=== PATIENT | male | born 1960 | race African-American/Black ===

== ENCOUNTER 2016-05-14 08:17 | Day surgery (SDC) | payer OTHER ==
[2016-05-14 08:57] VITALS: BMI 23.2
[2016-05-14] MEDS ORDERED: LIDOCAINE HCL/PF 1% SDV 5ML VIAL ONE (08:57)
[2016-05-14] MEDS ORDERED: PROPOFOL 20 ML ONE ×3 (08:57→10:24)
[2016-05-14 10:41] VITALS: TEMP 99
[2016-05-14 11:46] VITALS: BP 131/95; PULSE 70
--- NOTE | 2016-05-15 12:10 | PATH ---
Surgical Pathology Report Patient Name: KIRSTIN BURTON [facility]. Rec. #: [id number] /Age/Gender: 1960 (Age: 55) / M Account: [id number] Location: [facility]-ENDOSCOPY Taken: 05/14/2016 Received: 05/14/2016 Reported: 05/15/2016 Physicians: Neville Nguyễn M.D. Specimen(s) Received A: BX EROSION MID ANTRUM B: BX BODY OF STOMACH Clinical History Rule out ampullary mass by MRI Erosion antrum, nodular stomach, hiatal hernia, redundant ampullary mucosa Final Diagnosis A. STOMACH, MID ANTRUM, EROSION, BIOPSY: GASTRIC ANTRAL MUCOSA WITH MODERATE CHRONIC GASTRITIS AND REACTIVE GASTROPATHY WITH FOCAL SURFACE EROSION. IMMUNOSTAIN FOR H. PYLORI IS NEGATIVE FOR ORGANISMS. B. STOMACH, BODY BIOPSY: GASTRIC OXYNTIC MUCOSA WITH MODERATE CHRONIC GASTRITIS IMMUNOSTAIN FOR H. PYLORI IS NEGATIVE FOR ORGANISMS. Electronically Signed Dave Walker M.D. Gross Description A. Received in formalin, labeled "biopsy erosion mid antrum" is a ludwig, irregular portion of soft tissue measuring 0.4 cm in greatest dimension. The specimen is submitted in toto in one cassette. B. Received in formalin, labeled "biopsy body of stomach" are 2 ludwig, irregular portions of soft tissue measuring 0.2 and 0.7 cm in greatest dimension. The specimens are submitted in toto in one cassette. 05/14/2016 saudi05/14/2016
== END 2016-05-14 11:45 | disposition home or self-care (01) ==
LOC: JASU-ENDO 08:17
PROVIDERS: ATTEND Internal Medicine Gastroenterology
PROC: 0DB68ZX Excision of Stomach, Via Natural or Artificial Opening Endoscopic, Diagnostic (ICD-10-PCS; principal; 2016-05-14 09:30)
DX: K25.9 Gastric ulcer, unspecified as acute or chronic, without hemorrhage or perforation (principal); K31.89 Other diseases of stomach and duodenum
CPT/HCPCS: 88305-TC; 88342-TC

== ENCOUNTER 2016-08-27 02:51 | Observation (INO) | payer OTHER ==
[2016-08-27] MEDS ORDERED: SODIUM CHLORIDE 0.9% 500 ML INFUS.BAG IV ONE (02:58)
--- NOTE | 2016-08-27 02:59 | PDOC ---
History of Present Illness - General History Source: Patient Exam Limitations: No Limitations - History of Present Illness Initial Comments: 08/27/16 03:35 Patient is a 55 year old male with a significant past medical history of hypertension, asthma, chronic back pain and ?heart disease who presents to the ED via EMS with complaint of chest pain since 2 AM. Patient states that sharp chest pain, nonradiating, woke him up from his sleep. As per EMS, the patient was given 340 mg baby aspirin and nitro and his last BP was 134/75. Patient notes that he experienced similar pain before. Patient reports associated SOB with chest pain that is intermittent. Patient reports chest pain upon taking of a deep breath. He denies any fall, trauma or LOC. He denies any recent travel or long trip. 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 Allergies: NKA <Jessica Major - Last Filed: 08/27/16 05:39> <Abdullahi Mae - Last Filed: 08/27/16 06:06> - General Stated Complaint: CHEST PAIN Past History <Jessica Major - Last Filed: 08/27/16 05:39> - Past Medical History Asthma: Yes GI Disorders: Yes (ULCERS;H.PYLORY;H/H) HTN: Yes - Psycho/Social/Smoking Cessation Hx Suicidal Ideation: No Smoking Status: Yes Smoking History: Current some day smoker Have you smoked in the past 12 months: Yes Number of Cigarettes Smoked Daily: 10 Cigars Per Day: 5 'Breaking Loose' booklet given: 05/14/16 Hx Alcohol Use: Yes Drug/Substance Use Hx: No Substance Use Type: None Hx Substance Use Treatment: No <Abdullahi Mae - Last Filed: 08/27/16 06:06> - Past Medical History Allergies/Adverse Reactions: Allergies Allergy/AdvReac Type Severity Reaction Status Date / Time No Known Allergies Allergy Verified 08/27/16 03:17 Home Medications: Ambulatory Orders Aspirin [Ecotrin] 81 mg PO WEEKLY 02/26/16 Losartan Potassium [Cozaar -] 50 mg PO DAILY 02/26/16 Albuterol Sulfate Inhaler - [Ventolin HFA Inhaler -] 1 - 2 inh PO PRN 02/27/16 Loratadine [Claritin] 10 mg PO DAILY 05/14/16 Pantoprazole Sodium [Protonix] 40 mg PO DAILY #0 tablet. 05/14/16 Review of Systems - Review of Systems Able to Perform ROS?: Yes Comments:: 08/27/16 03:35 GENERAL/CONSTITUTIONAL: No fever or chills. No weakness. HEAD, EYES, EARS, NOSE AND THROAT: No change in vision. No ear pain or discharge. No sore throat. CARDIOVASCULAR: +chest pain, +SOB. RESPIRATORY: No cough, wheezing, or hemoptysis. GASTROINTESTINAL: No nausea, vomiting, diarrhea or constipation. GENITOURINARY: No dysuria, frequency, or change in urination. MUSCULOSKELETAL: No joint or muscle swelling or pain. No neck or back pain. SKIN: No rash NEUROLOGIC: No headache, vertigo, loss of consciousness, or change in strength/ sensation. ENDOCRINE: No increased thirst. No abnormal weight change. HEMATOLOGIC/LYMPHATIC: No anemia, easy bleeding, or history of blood clots. ALLERGIC/IMMUNOLOGIC: No hives or skin allergy. <Jessica Major - Last Filed: 08/27/16 05:39> *Physical Exam - Vital Signs Last Vital Signs Temp Pulse Resp BP Pulse Ox 88 12 125/89 100 08/27/16 03:06 08/27/16 03:06 08/27/16 03:06 08/27/16 03:06 - Physical Exam Comments: 08/27/16 03:36 GENERAL: Awake, alert, and fully oriented, in no acute distress HEAD: No signs of trauma EYES: PERRLA, EOMI, sclera anicteric, conjunctiva clear ENT: Auricles normal inspection, hearing grossly normal, nares patent, oropharynx clear without exudates. Moist mucosa NECK: Normal ROM, supple, no lymphadenopathy, JVD, or masses LUNGS: Breath sounds equal, clear to auscultation bilaterally. No wheezes, and no crackles HEART: Regular rate and rhythm, normal S1 and S2, no murmurs, rubs or gallops ABDOMEN: Soft, nontender, normoactive bowel sounds. No guarding, no rebound. No masses EXTREMITIES: +clubbing. Normal range of motion, no edema. No cyanosis. No cords , erythema, or tenderness NEUROLOGICAL: Cranial nerves II through XII grossly intact. Normal speech. SKIN: Warm, Dry, normal turgor, no rashes or lesions noted. <Jessica Major - Last Filed: 08/27/16 05:39> Heart Score/ECG Review #1 08/27/16 02:[address] Mae Impression: sinus rhythm with occasional premature ventricular complexes possible left atrial enlargement left axis deviation nonspecific T wave abnormality Vent. rate 77 bpm <Jessica Major - Last Filed: 08/27/16 05:39> - History History: Moderately suspicious - Electrocardiogram EKG: Non specific repolarization disturbance - Age Age: 45-65 - Risk Factors Risk Factors Heart Score: Yes Hx Hypertension, Yes Smoking History, Yes Positive family hx of cardiac disease Based on the list above the patient has:: 1-2 risk factors - Troponin Troponin: </= normal limit - Score Heart Score - Total: 4 #1 General ECG Interpretation: Sinus Rhythm, Normal Rate, Normal Intervals Compared to previous ECG there are: Previous ECG unavail - ECG Intrepretation Rhythm: Regular Rhythm <Abdullahi Mae - Last Filed: 08/27/16 06:06> ED Treatment Course - LABORATORY CBC & Chemistry Diagram: 08/27/16 03:13 08/27/16 03:13 - ADDITIONAL ORDERS Additional order review: 08/27/16 03:13 RBC 4.75 MCV 86.9 MCHC 33.2 RDW 12.5 MPV 8.0 Neutrophils % 60.0 Lymphocytes % 31.4 Monocytes % 7.1 Eosinophils % 0.9 Basophils % 0.6 - RADIOLOGY Radiology Studies Ordered: 08/27/16 05:28 THIS IS A PRELIMINARY REPORT FROM [facility]IAL EXAM: CTA CHEST No pulmonary embolism. No aortic aneurysm. No pneumonia or pleural effusions. Minimal emphysematous changes. THIS DOCUMENT HAS BEEN ELECTRONICALLY SIGNED Kaila Zamorano M.D. - Medications Given in the ED: ED Medications Discontinued Medications Generic Name Dose Route Start Last Admin Trade Name Freq PRN Reason Stop Dose Admin Alprazolam 0.5 mg 08/27/16 03:23 08/27/16 03:26 Xanax - PO 08/27/16 03:24 0.5 mg ONCE ONE Administration Sodium Chloride 500 ml 08/27/16 02:58 08/27/16 03:32 Normal Saline - IV 08/27/16 02:59 500 ml ONCE ONE Administration <Jessica Major - Last Filed: 08/27/16 05:39> - LABORATORY CBC & Chemistry Diagram: 08/27/16 03:13 08/27/16 03:13 <Abdullahi Mae - Last Filed: 08/27/16 06:06> Medical Decision Making - Medical Decision Making 08/27/16 04:45 This is a 55yo m with chest pain, sudden onset that woke him from sleep, described as a sharp, stabbing pain; he has family history of ACS, self h/o hypertension and tobacco use; he has a reassuring although abnormal EKG showing nonspecific T wave abnormality and Q waves; none to compare with. He has normal evaluation and CTA chest is also negative; given his risk factors and the character of the pain, which has been unremitting, will place patient in observation for chest pain evaluation. 08/27/16 05:32 08/27/16 05:35 Pt has HEART score of 4, ODALYS, 3. 08/27/16 06:06 Endorsed to hospitalist. <Abdullahi Mae - Last Filed: 08/27/16 06:06> *DC/Admit/Observation/Transfer - Attestations Scribe Attestion: 08/27/16 03:37 Documentation prepared by VIPUL Caraballo, acting as medical front desk coordinator for Abdullahi Mae MD. <Jessica Major - Last Filed: 08/27/16 05:39> - Discharge Dispostion Admit: Yes Decision to Admit order Date/Time: 08/27/16 06:06 <Abdullahi Mae - Last Filed: 08/27/16 06:06> Diagnosis at time of Disposition: Chest pain Qualifiers: Chest pain type: other chest pain Qualified Code(s): R07.89 - Other chest pain ; R07.8 - Other chest pain - Discharge Dispostion Condition at time of disposition: Guarded - Referrals Referrals: Tiny Damon MD [Primary Care Provider] -
[2016-08-27] MEDS ORDERED: ALPRAZolam 0.25 MG TABLET ONE (03:05)
[2016-08-27 03:15] VITALS: BMI 23.2
[2016-08-27 03:21] LABS: BASOPHIL 0.6 % (0-2.0); EOSINOPHIL 0.9 % (0-4.5); MCH 28.8 pg (25.7-33.7); MCHC 33.2 g/dl (32.0-35.9); MEAN CELL VOLUME 86.9 fl (80-96); PLATELET COUNT 258 K/MM3 (134-434); RDW 12.5 % (11.9-15.9); WHITE BLOOD COUNT 11.7 K/mm3 (4.0-10.0)
[2016-08-27] MEDS ORDERED: ALPRAZolam 0.25 MG TABLET PO ONE (03:23)
[2016-08-27 03:40] LABS: INR 1.02 (0.82-1.09); PROTHROMBIN TIME (PATIENT) 11.2 SEC (9.98-11.88)
[2016-08-27 03:43] LABS: ALBUMIN 3.6 g/dl (3.4-5.0); ANION GAP 13 (8-16); BILIRUBIN,TOTAL 0.5 mg/dL (0.2-1.0); CALCIUM 8.7 mg/dL (8.5-10.1); CO2 21 mmol/L (21-32); COCKROFT - GAULT 121.57; CREATININE 0.8 mg/dL (0.7-1.3); GLUCOSE,RANDOM 116 mg/dL (74-106); MAGNESIUM 1.8 mg/dL (1.8-2.4); PHOSPHOROUS 2.7 mg/dL (2.5-4.9); SGOT/AST 18 U/L (15-37); SGPT/ALT 24 U/L (12-78); TOT PROT 6.8 g/dl (6.4-8.2)
[2016-08-27 03:44] LABS: ALK PHOS 75 U/L (45-117); TROPONIN I < 0.02 ng/ml (0.00-0.05)
[2016-08-27 03:55] LABS: CHOLESTEROL 200 mg/dL (50-200)
--- NOTE | 2016-08-27 05:52 | HP ---
CHIEF COMPLAINT: Chest Pain PCP:Din HISTORY OF PRESENT ILLNESS: Patient is a 55 year old male with significant PMH of HTN, Asthma, chronic back pain & 1/2PPD cigarette smoking who presents to ED with chest pain. Patient states he was awoken at 2 AM with sharp left-sided chest pain. Pain was 4/10, nonradiating and associated with some mild shortness of breath. The pain is increased with deep breaths and is reproducible with palpation or movement. Patient also reports that he has had a moderate cough the last 3 days, nonproductive. He states he has been coughing aggressively over that time frame. Denies lightheadedness, palpitations, headache, visual changes. He denies any fall, trauma or LOC. Given Aspirin 340 & nitro by EMS with some mild improvement in pain. HEART SCORE 4 ODALYS SCORE 3 ER course was notable for: (1)EKG: NSR (2)Trops (-) x1 (3)CTA (-) for PE (as per preliminary read) Recent Travel: NONE NOTED PAST MEDICAL HISTORY: ABOVE PAST SURGICAL HISTORY: SHOUDLER SURGERY THROAT SURGERY (CYST REMOVAL ON LARY[place]?) APPENDECTOMY Social History: Smokin/2 PPD for "LONG TIME" Alcohol:NONE NOTED Drugs: NONE NOTED Family History: CAD IN FATHER Allergies No Known Allergies Allergy (Verified 08/27/16 03:17) HOME MEDICATIONS: Home Medications Medication Instructions Recorded Aspirin [Ecotrin] 81 mg PO WEEKLY 02/26/16 Losartan Potassium [Cozaar -] 50 mg PO DAILY 02/26/16 Albuterol Sulfate Inhaler - 1 - 2 inh PO PRN 02/27/16 [Ventolin HFA Inhaler -] Loratadine [Claritin] 10 mg PO DAILY 05/14/16 Pantoprazole Sodium [Protonix] 40 mg PO DAILY #0 tablet. 05/14/16 REVIEW OF SYSTEMS CONSTITUTIONAL: Absent: fever, chills, diaphoresis, generalized weakness, malaise, loss of appetite, weight change HEENT: Absent: rhinorrhea, nasal congestion, throat pain, throat swelling, difficulty swallowing, mouth swelling, ear pain, eye pain, visual changes CARDIOVASCULAR: (+)chest pain, Absent: syncope, palpitations, irregular heart rate, lightheadedness, peripheral edema RESPIRATORY: (+)cough, Absent: shortness of breath, dyspnea with exertion, orthopnea, wheezing, stridor , hemoptysis GASTROINTESTINAL: Absent: abdominal pain, abdominal distension, nausea, vomiting, diarrhea, constipation, melena, hematochezia GENITOURINARY: Absent: dysuria, frequency, urgency, hesitancy, hematuria, flank pain, genital pain MUSCULOSKELETAL: Absent: myalgia, arthralgia, joint swelling, back pain, neck pain SKIN: Absent: rash, itching, pallor HEMATOLOGIC/IMMUNOLOGIC: Absent: easy bleeding, easy bruising, lymphadenopathy, frequent infections ENDOCRINE: Absent: unexplained weight gain, unexplained weight loss, heat intolerance, cold intolerance NEUROLOGIC: Absent: headache, focal weakness or paresthesias, dizziness, unsteady gait, seizure, mental status changes, bladder or bowel incontinence PSYCHIATRIC: Absent: anxiety, depression, suicidal or homicidal ideation, hallucinations. PHYSICAL EXAMINATION Vital Signs - 24 hr 08/27/16 08/27/16 08/27/16 02:51 03:06 05:31 Pulse Rate 88 88 Respiratory 12 12 Rate Blood Pressure 125/89 125/89 O2 Sat by Pulse 100 100 100 Oximetry (%) GENERAL: Awake, alert, and fully oriented, in no acute distress. Mildly anxious. HEENT: Atraumatic, EOMI, PERRLA, No lymphadenopathy noted, moist membranes LUNGS: some mild bibasilar rales noted, mildly diminished breath sounds bilateral lung gupta HEART: Regular rate and rhythm, normal S1 and S2 without murmur, rub or gallop. ABDOMEN: Soft, nontender, not distended, normoactive bowel sounds MUSCULOSKELETAL: Normal range of motion at all joints. No CVA tenderness. Moderate pain to palpation left chest wall. UPPER EXTREMITIES: 2+ pulses, warm, well-perfused. No cyanosis. No peripheral edema. LOWER EXTREMITIES: 2+ pulses, warm, well-perfused. No calf tenderness. No peripheral edema. NEUROLOGICAL: Cranial nerves II-XII intact. Normal speech. Normal gait. PSYCHIATRIC: Cooperative. Good eye contact. Appropriate mood and affect. SKIN: Warm, dry, normal turgor, no rashes or lesions noted, normal capillary refill. Laboratory Results - last 24 hr 08/27/16 08/27/16 08/27/16 03:13 03:13 03:13 WBC 11.7 H RBC 4.75 Hgb 13.7 Hct 41.3 MCV 86.9 MCHC 33.2 RDW 12.5 Plt Count 258 MPV 8.0 Neutrophils % 60.0 Lymphocytes % 31.4 Monocytes % 7.1 Eosinophils % 0.9 Basophils % 0.6 INR 1.02 Sodium 143 Potassium 3.5 Chloride 109 H Carbon Dioxide 21 Anion Gap 13 BUN 10 D Creatinine 0.8 Creat Clearance w eGFR > 60 Random Glucose 116 H D Calcium 8.7 Phosphorus 2.7 Magnesium 1.8 Total Bilirubin 0.5 AST 18 D ALT 24 Alkaline Phosphatase 75 Creatine Kinase 280 CK-MB (CK-2) Rel Index Troponin I < 0.02 B-Natriuretic Peptide 24.21 Total Protein 6.8 Albumin 3.6 Triglycerides Cholesterol HDL Cholesterol Lipase 107 Blood Type Antibody Screen 08/27/16 08/27/16 08/27/16 03:13 03:13 03:28 WBC RBC Hgb Hct MCV MCHC RDW Plt Count MPV Neutrophils % Lymphocytes % Monocytes % Eosinophils % Basophils % INR Sodium Potassium Chloride Carbon Dioxide Anion Gap BUN Creatinine Creat Clearance w eGFR Random Glucose Calcium Phosphorus Magnesium Total Bilirubin AST ALT Alkaline Phosphatase Creatine Kinase CK-MB (CK-2) Rel Index Cancelled Troponin I B-Natriuretic Peptide Total Protein Albumin Triglycerides 176 H D Cholesterol 200 HDL Cholesterol 52 Lipase Blood Type O POSITIVE Antibody Screen Negative ASSESSMENT/PLAN: 55 year old male with significant PMH of HTN, Asthma, chronic back pain & 1/ 2PPD cigarette smoking who presents to ED with chest pain. #Atypical Chest pain, rule out ACS -observation telemetry for continuous cardiac monitoring -troponin (-) x1, will trend -ASA81 started -ECHO ordered -Cardiology consult requested #HTN -restart home meds: Losartan #Asthma Hx -Albuterol PRN ordered Prophylaxis -EAM, SCD's -PPI -Sodium controlled diet, will monitor electrolytes Visit type - Emergency Visit Emergency Visit: Yes Care time: The patient presented to the Emergency Department on the above date and was hospitalized for further evaluation of their emergent condition. - New Patient This patient is new to me today: Yes Date on this admission: 08/27/16 - Critical Care Critical Care patient: No
--- NOTE | 2016-08-27 06:19 | PN ---
Teaching Attending Note Name of Resident: Donald Covarrubias ATTENDING PHYSICIAN STATEMENT I saw and evaluated the patient. I reviewed the resident's note and discussed the case with the resident. I agree with the resident's findings and plan as documented. SUBJECTIVE: 55 year old male presents c/o midsternal chest pain that started around 3 am, woke him up from sleep. Pain was 8/10, non radiating, associated with cough. Prior episodes of similar pain x 4. Most recent stress test in 2015 - normal. PMH HTN Asthma CAD Sx Appendectomy Shoulder surgery ALL NKDA Social Smoker MEDS Aspirin [Ecotrin] 81 mg PO WEEKLY 02/26/16 Losartan Potassium [Cozaar -] 50 mg PO DAILY 02/26/16 Albuterol Sulfate Inhaler - [Ventolin HFA Inhaler -] 1 - 2 inh PO PRN 02/27/16 Loratadine [Claritin] 10 mg PO DAILY 05/14/16 Pantoprazole Sodium [Protonix] 40 mg PO DAILY #0 tablet. 05/14/16 OBJECTIVE: Vital Signs Temperature Pulse Rate 88 08/27/16 03:06 Respiratory Rate 12 08/27/16 03:06 Blood Pressure 125/89 08/27/16 03:06 O2 Sat by Pulse Oximetry (%) 100 08/27/16 05:31 GENERAL: Awake, alert, and fully oriented, anxious. HEENT: Atraumatic, EOMI, PERRLA,moist membranes LUNGS: some mild bibasilar rales noted, mildly diminished breath sounds bilateral lung gupta HEART: Regular rate and rhythm, normal S1 and S2 without murmur, rub or gallop.Reproducible chest wall tenderness ABDOMEN: Soft, nontender, not distended, normoactive bowel sounds MUSCULOSKELETAL: Normal range of motion at all joints. No CVA tenderness. Moderate pain to palpation left chest wall. UPPER EXTREMITIES: 2+ pulses, warm, well-perfused. No cyanosis. No peripheral edema. LOWER EXTREMITIES: 2+ pulses, warm, well-perfused. No calf tenderness. No peripheral edema. NEUROLOGICAL: Cranial nerves II-XII intact. Normal speech. Normal gait. PSYCHIATRIC: Cooperative. Good eye contact. Appropriate mood and affect. SKIN: Warm, dry, normal turgor, no rashes or lesions noted, normal capillary refill Laboratory 08/27/16 08/27/16 08/27/16 03:13 03:13 03:13 WBC 11.7 K/mm3 H K/mm3 (4.0-10.0) RBC 4.75 M/mm3 M/mm3 (4.00-5.60) Hgb 13.7 GM/dL GM/dL (11.7-16.9) Hct 41.3 % % (35.4-49) MCV 86.9 fl fl (80-96) MCHC 33.2 g/dl g/dl (32.0-35.9) RDW 12.5 % % (11.9-15.9) Plt Count 258 K/MM3 K/MM3 (134-434) MPV 8.0 fl fl (7.5-11.1) Neutrophils % 60.0 % % (42.8-82.8) Lymphocytes % 31.4 % % (8-40) Monocytes % 7.1 % % (3.8-10.2) Eosinophils % 0.9 % % (0-4.5) Basophils % 0.6 % % (0-2.0) INR 1.02 (0.82-1.09) Sodium 143 mmol/L mmol/L (136-145) Potassium 3.5 mmol/L mmol/L (3.5-5.1) Chloride 109 mmol/L H mmol/L (98-107) Carbon Dioxide 21 mmol/L mmol/L (21-32) Anion Gap 13 (8-16) BUN 10 mg/dL D mg/dL (7-18) Creatinine 0.8 mg/dL mg/dL (0.7-1.3) Creat Clearance w eGFR > 60 (>60) Random Glucose 116 mg/dL H D mg/dL (74-106) Calcium 8.7 mg/dL mg/dL (8.5-10.1) Phosphorus 2.7 mg/dL mg/dL (2.5-4.9) Magnesium 1.8 mg/dL mg/dL (1.8-2.4) Total Bilirubin 0.5 mg/dL mg/dL (0.2-1.0) AST 18 U/L D U/L (15-37) ALT 24 U/L U/L (12-78) Alkaline Phosphatase 75 U/L U/L (45-117) Creatine Kinase 280 IU/L IU/L (39-308) Creatine Kinase Index 0.5 % % (0.0-5.0) CK-MB (CK-2) 1.293 ng/ml ng/ml (0.5-3.6) CK-MB (CK-2) Rel Index Troponin I < 0.02 ng/ml ng/ml (0.00-0.05) B-Natriuretic Peptide 24.21 pg/ml pg/ml (5-125) Total Protein 6.8 g/dl g/dl (6.4-8.2) Albumin 3.6 g/dl g/dl (3.4-5.0) Triglycerides Cholesterol HDL Cholesterol Lipase 107 U/L U/L (73-393) Blood Type Antibody Screen 08/27/16 08/27/16 08/27/16 03:13 03:13 03:28 WBC RBC Hgb Hct MCV MCHC RDW Plt Count MPV Neutrophils % Lymphocytes % Monocytes % Eosinophils % Basophils % INR Sodium Potassium Chloride Carbon Dioxide Anion Gap BUN Creatinine Creat Clearance w eGFR Random Glucose Calcium Phosphorus Magnesium Total Bilirubin AST ALT Alkaline Phosphatase Creatine Kinase Creatine Kinase Index CK-MB (CK-2) CK-MB (CK-2) Rel Index Cancelled Troponin I B-Natriuretic Peptide Total Protein Albumin Triglycerides 176 mg/dL H D mg/dL (35-160) Cholesterol 200 mg/dL mg/dL (50-200) HDL Cholesterol 52 mg/dL mg/dL (40-60) Lipase Blood Type O POSITIVE Antibody Screen Negative CTA - no acute disease EKG - NSR with no acute ST changes ASSESSMENT AND PLAN: 55 year old male with multiple risk factors presents with atypical chest pain - telemetry - ASA - cardiac enzymes -lipid profile and A1c -cardiology for stress test Observation
[2016-08-27] MEDS ORDERED: ALBUTEROL SO4 6.7 GM HFA INHALER IH PRN (06:24)
--- NOTE | 2016-08-27 06:24 | MSN ---
[id number]: Pt is a 55 yo male with a PMHx of HTN, asthma, and GERD, who presents to the ED with CP that woke him from sleep at 2AM this morning. Pt describes the pain as sharp, located over the left side of his chest. It is non-radiating and worse with deep inspiration. Pt admits to associated SOB and nausea with the CP. He experienced some relief with the administration of nitro. Admits to nonproductive cough for 2 days with associated fevers. Denies rhinorrhea or sore throat. He has been having night sweats on and off for the past year. Denies weight loss, fatigue, change in bowel/bladder, and headaches. ER course notable for: (1) EKG: NSR with occasional PVCs, nonspecific T wave abnormality; Trop I negative x1 (2) WBC slightly elevated @11.7 (3) CXR, Chest CTA (prelim read negative for PE, official read pending) History Source: Patient Limitations to Obtaining History: No Limitations - Past Medical History Cardiovascular: Yes: HTN Pulmonary: Yes: Asthma Gastrointestinal: Yes: GERD Musculoskeletal: Yes: Chronic low back pain (2/2 herniated discs) - Past Surgical History Past Surgical History: Yes: Appendectomy, Tonsillectomy, Upper Endoscopy Additional Past Surgical History: Shoulder surgery, Laryngeal surgery - Smoking History Smoking history: Current every day smoker Have you smoked in the past 12 months: Yes Aproximately how many cigarettes per day: 10 - Alcohol/Substance Use Hx Alcohol Use: Yes Number of Drinks Daily: 1 History of Substance Use: reports: None - Social History ADL: Independent History of Recent Travel: No Home Medications - Allergies Allergies/Adverse Reactions: Allergies Allergy/AdvReac Type Severity Reaction Status Date / Time No Known Allergies Allergy Verified 08/27/16 03:17 - Home Medications Home Medications: Ambulatory Orders Aspirin [Ecotrin] 81 mg PO WEEKLY 02/26/16 Losartan Potassium [Cozaar -] 50 mg PO DAILY 02/26/16 Albuterol Sulfate Inhaler - [Ventolin HFA Inhaler -] 1 - 2 inh PO PRN 02/27/16 Loratadine [Claritin] 10 mg PO DAILY 05/14/16 Pantoprazole Sodium [Protonix] 40 mg PO DAILY #0 tablet. 05/14/16 Family Disease History - Family Disease History Family Disease History: Diabetes: Mother, Heart Disease: Father ( of [place], Pacemaker) Review of Systems - Review of Systems Constitutional: reports: Fever, Night Sweats (On and off for ~1yr). denies: Diaphoresis, Lethargy, Unintentional Wgt. 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 denies: Hemoptysis Gastrointestinal: reports: Nausea (Associated with CP) Genitourinary: reports: No Symptoms Musculoskeletal: reports: Back Pain Integumentary: reports: No Symptoms Neurological: reports: No Symptoms Endocrine: reports: No Symptoms Hematology/Lymphatic: reports: No Symptoms Psychiatric: reports: No Symptoms Physical Examination Vital Signs: Vital Signs Period Temp Pulse Resp BP Sys/Meier Pulse Ox Last 24 Hr 88-88 12-12 125-125/89-89 100-100 Constitutional: Yes: Well Nourished, No Distress, Calm, Thin Eyes: Yes: WNL, Conjunctiva Clear, EOM Intact HENT: Yes: WNL Neck: Yes: WNL Cardiovascular: Yes: Regular Rate and Rhythm, S1, S2. No: JVD, Gallop, Murmur, Rub Respiratory: Yes: On Nasal O2, Rhonchi (Diffuse, end expiratory) Gastrointestinal: Yes: WNL Musculoskeletal: Yes: Back Pain, Other (Reproducible CP over the L pectoralis muscle) Extremities: Yes: WNL Edema: No Peripheral Pulses WNL: Yes Peripheral Pulses: Left Radial: 2+, Right Radial: 2+, Left Doralis Pedis: 2+, Right Dorsalis Pedis: 2+ Integumentary: Yes: WNL Neurological: Yes: WNL, Alert, Oriented ...Motor Strength: WNL Psychiatric: Yes: WNL, Alert, Oriented Labs: CBC WBC 11.7 K/mm3 (4.0-10.0) H 08/27/16 03:13 RBC 4.75 M/mm3 (4.00-5.60) 08/27/16 03:13 Hgb 13.7 GM/dL (11.7-16.9) 08/27/16 03:13 Hct 41.3 % (35.4-49) 08/27/16 03:13 MCV 86.9 fl (80-96) 08/27/16 03:13 MCHC 33.2 g/dl (32.0-35.9) 08/27/16 03:13 RDW 12.5 % (11.9-15.9) 08/27/16 03:13 Plt Count 258 K/MM3 (134-434) 08/27/16 03:13 MPV 8.0 fl (7.5-11.1) 08/27/16 03:13 Neutrophils % 60.0 % (42.8-82.8) 08/27/16 03:13 Lymphocytes % 31.4 % (8-40) 08/27/16 03:13 Monocytes % 7.1 % (3.8-10.2) 08/27/16 03:13 Eosinophils % 0.9 % (0-4.5) 08/27/16 03:13 Basophils % 0.6 % (0-2.0) 08/27/16 03:13 CMP Sodium 143 mmol/L (136-145) 08/27/16 03:13 Potassium 3.5 mmol/L (3.5-5.1) 08/27/16 03:13 Chloride 109 mmol/L (98-107) H 08/27/16 03:13 Carbon Dioxide 21 mmol/L (21-32) 08/27/16 03:13 Anion Gap 13 (8-16) 08/27/16 03:13 BUN 10 mg/dL (7-18) D 08/27/16 03:13 Creatinine 0.8 mg/dL (0.7-1.3) 08/27/16 03:13 Creat Clearance w eGFR > 60 (>60) 08/27/16 03:13 Random Glucose 116 mg/dL (74-106) H D 08/27/16 03:13 Calcium 8.7 mg/dL (8.5-10.1) 08/27/16 03:13 Phosphorus 2.7 mg/dL (2.5-4.9) 08/27/16 03:13 Magnesium 1.8 mg/dL (1.8-2.4) 08/27/16 03:13 Total Bilirubin 0.5 mg/dL (0.2-1.0) 08/27/16 03:13 AST 18 U/L (15-37) D 08/27/16 03:13 ALT 24 U/L (12-78) 08/27/16 03:13 Alkaline Phosphatase 75 U/L (45-117) 08/27/16 03:13 Creatine Kinase 280 IU/L (39-308) 08/27/16 03:13 Creatine Kinase Index 0.5 % (0.0-5.0) 08/27/16 03:13 CK-MB (CK-2) 1.293 ng/ml (0.5-3.6) 08/27/16 03:13 CK-MB (CK-2) Rel Index Cancelled 08/27/16 03:13 Troponin I < 0.02 ng/ml (0.00-0.05) 08/27/16 03:13 B-Natriuretic Peptide 24.21 pg/ml (5-125) 08/27/16 03:13 Total Protein 6.8 g/dl (6.4-8.2) 08/27/16 03:13 Albumin 3.6 g/dl (3.4-5.0) 08/27/16 03:13 Triglycerides 176 mg/dL (35-160) H D 08/27/16 03:28 Cholesterol 200 mg/dL (50-200) 08/27/16 03:28 HDL Cholesterol 52 mg/dL (40-60) 08/27/16 03:28 Lipase 107 U/L (73-393) 08/27/16 03:13 Imaging - Results Chest X-ray: Pending, Image Reviewed Cat Scan: Pending (Prelim read negative for PE, Official read pending), Image Reviewed Assessment/Plan Pt is a 55 yo male with a PMHx of HTN, asthma, and GERD, who presents with non- radiating, sharp L sided CP that woke him from sleep at 2AM this morning. Pt is being placed in observation with telemetry monitoring for further cardiac evaluation. 1. CP rule out ACS -EKG and troponin x1 negative for ACS. FU repeat trops -CKMB nml x1 -Given ASA 340mg and nitro in ambulance -Cardio consult pending -ECHO pending -FU official CXR and CTA reads. Prelim read negative for PE -Start ASA 81mg PO daily 2. HTN -Stable -Continue home medication of Losartan 50mg PO daily 3. Asthma -Continue home medication of albuterol inhaler 4. GERD -Stable -Continue home medication of Protonix 40mg PO daily 5. FEN -Given 500cc NS in ED -BMP WNL -Na controlled diet ordered 6. DVT ppx -SCDs -EAB 7. Dispo -Placed in obs. Awaiting further cardiac evaluation Chad Reid, MS3
[2016-08-27 07:30] LABS: URINE APPEARANCE CLEAR; URINE BILIRUBIN NEGATIVE (NEGATIVE); URINE BLOOD NEGATIVE (NEGATIVE); URINE COLOR STRAW; URINE GLUCOSE (UA) NEGATIVE (NEGATIVE); URINE KETONE NEGATIVE (NEGATIVE); URINE LEUK ESTERASE NEGATIVE (NEGATIVE); URINE NITRITE NEGATIVE (NEGATIVE); URINE PROTEIN NEGATIVE (NEGATIVE); URINE UROBILINOGEN NEGATIVE E.U./dl (0.2-1.0)
[2016-08-27 08:50] LABS: TROPONIN I < 0.02 ng/ml (0.00-0.05)
[2016-08-27 09:00] LABS: LDL CHOLESTEROL (ONLY SJRH) 121 mg/dL (5-100)
[2016-08-27 09:07] LABS: URINE MARIJUANA THC POSITIVE ng/ml (CUTOFF=50)
--- NOTE | 2016-08-27 09:18 | CON.CARD ---
Consult Consult Specialty:: Cardiology Reason for Consultation:: cp - History of Present Illness History of Present Illness: Patient is a 55 year old male with a significant past medical history of hypertension, asthma, chronic back pain and ?heart disease who presents to the ED via EMS with complaint of chest pain since 2 AM. Patient states that sharp chest pain, nonradiating, woke him up from his sleep. As per EMS, the patient was given 340 mg baby aspirin and nitro and his last BP was 134/75. Patient notes that he experienced similar pain before. Patient reports associated SOB with chest pain that is intermittent. Patient reports chest pain upon taking of a deep breath. He denies any fall, trauma or LOC. He denies any recent travel or long trip. 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 Allergies: NKA PMH HTN Hyperlipidemia lower back pain Lower Back Pain Negative MIBI stress test 2012 - History Source History Provided By: Patient, Medical Record - Past Medical History Cardio/Vascular: Yes: HTN Pulmonary: Yes: Asthma Gastrointestinal: Yes: GERD Musculoskeletal: Yes: Chronic low back pain (2/2 herniated discs) - Past Surgical History Past Surgical History: Yes: Appendectomy, Tonsillectomy, Upper Endoscopy - Alcohol/Substance Use Hx Alcohol Use: Yes Number of Drinks Daily: 1 History of Substance Use: reports: None - Smoking History Smoking history: Current every day smoker Have you smoked in the past 12 months: Yes Aproximately how many cigarettes per day: 10 - Social History ADL: Independent History of Recent Travel: No Home Medications - Allergies Allergies/Adverse Reactions: Allergies Allergy/AdvReac Type Severity Reaction Status Date / Time No Known Allergies Allergy Verified 08/27/16 03:17 - Home Medications Home Medications: Ambulatory Orders Aspirin [Ecotrin] 81 mg PO WEEKLY 02/26/16 Losartan Potassium [Cozaar -] 50 mg PO DAILY 02/26/16 Albuterol Sulfate Inhaler - [Ventolin HFA Inhaler -] 1 - 2 inh PO PRN 02/27/16 Loratadine [Claritin] 10 mg PO DAILY 05/14/16 Pantoprazole Sodium [Protonix] 40 mg PO DAILY #0 tablet. 05/14/16 Family Disease History - Family Disease History Family Disease History: Diabetes: Mother, Heart Disease: Father ( of [place], Pacemaker) Review of Systems - Review of Systems Constitutional: reports: No Symptoms Eyes: reports: No Symptoms HENT: reports: No Symptoms Neck: reports: No Symptoms Cardiovascular: reports: Chest Pain Respiratory: reports: SOB Gastrointestinal: reports: No Symptoms Genitourinary: reports: No Symptoms Breasts: reports: No Symptoms Reported Musculoskeletal: reports: No Symptoms Integumentary: reports: No Symptoms Neurological: reports: No Symptoms Endocrine: reports: No Symptoms Hematology/Lymphatic: reports: No Symptoms Psychiatric: reports: No Symptoms Vital Signs: Vital Signs Temperature 98.2 F 08/27/16 08:03 Pulse Rate 71 08/27/16 08:03 Respiratory Rate 16 08/27/16 08:03 Blood Pressure 109/62 08/27/16 08:03 O2 Sat by Pulse Oximetry (%) 100 08/27/16 08:03 Constitutional: Yes: Well Nourished, No Distress, Calm Eyes: Yes: WNL, Conjunctiva Clear, EOM Intact HENT: Yes: WNL, Atraumatic, Normocephalic Neck: Yes: WNL, Supple, Trachea Midline Respiratory: Yes: WNL, Regular, CTA Bilaterally Gastrointestinal: Yes: WNL, Normal Bowel Sounds Renal/: Yes: WNL Cardiovascular: Yes: WNL, Regular Rate and Rhythm Musculoskeletal: Yes: WNL Extremities: Yes: WNL Integumentary: Yes: WNL Neurological: Yes: WNL, Alert, Oriented ...Motor Strength: WNL Psychiatric: Yes: WNL, Alert, Oriented - Other Data Labs, Other Data: INR, PTT INR 1.02 (0.82-1.09) 08/27/16 03:13 Troponin, BNP 08/27/16 07:55 Troponin I < 0.02 Troponin, BNP 08/27/16 07:55 Troponin I < 0.02 Laboratory Tests 08/27/16 08/27/16 08/27/16 03:13 03:13 03:13 WBC 11.7 H RBC 4.75 Hgb 13.7 Hct 41.3 MCV 86.9 MCHC 33.2 RDW 12.5 Plt Count 258 MPV 8.0 Neutrophils % 60.0 Lymphocytes % 31.4 Monocytes % 7.1 Eosinophils % 0.9 Basophils % 0.6 INR 1.02 Sodium 143 Potassium 3.5 Chloride 109 H Carbon Dioxide 21 Anion Gap 13 BUN 10 D Creatinine 0.8 Creat Clearance w eGFR > 60 Random Glucose 116 H D Hemoglobin A1c % Calcium 8.7 Phosphorus 2.7 Magnesium 1.8 Total Bilirubin 0.5 AST 18 D ALT 24 Alkaline Phosphatase 75 Creatine Kinase 280 Creatine Kinase Index 0.5 CK-MB (CK-2) 1.293 CK-MB (CK-2) Rel Index Troponin I < 0.02 B-Natriuretic Peptide 24.21 Total Protein 6.8 Albumin 3.6 Triglycerides Cholesterol Total LDL Cholesterol HDL Cholesterol Lipase 107 Urine Color Urine Appearance Urine pH Ur Specific [place] Urine Protein Urine Glucose (UA) Urine Ketones Urine Blood Urine Nitrite Urine Bilirubin Urine Urobilinogen Ur Leukocyte Esterase Opiates Screen Methadone Screen Barbiturate Screen Phencyclidine Screen Ur Amphetamines Screen MDMA (Ecstasy) Screen Benzodiazepines Screen Cocaine Screen U Marijuana (THC) Screen Blood Type Antibody Screen 08/27/16 08/27/16 08/27/16 03:13 03:13 03:13 WBC RBC Hgb Hct MCV MCHC RDW Plt Count MPV Neutrophils % Lymphocytes % Monocytes % Eosinophils % Basophils % INR Sodium Potassium Chloride Carbon Dioxide Anion Gap BUN Creatinine Creat Clearance w eGFR Random Glucose Hemoglobin A1c % 5.9 D Calcium Phosphorus Magnesium Total Bilirubin AST ALT Alkaline Phosphatase Creatine Kinase Creatine Kinase Index CK-MB (CK-2) CK-MB (CK-2) Rel Index Cancelled Troponin I B-Natriuretic Peptide Total Protein Albumin Triglycerides Cholesterol Total LDL Cholesterol HDL Cholesterol Lipase Urine Color Urine Appearance Urine pH Ur Specific [place] Urine Protein Urine Glucose (UA) Urine Ketones Urine Blood Urine Nitrite Urine Bilirubin Urine Urobilinogen Ur Leukocyte Esterase Opiates Screen Methadone Screen Barbiturate Screen Phencyclidine Screen Ur Amphetamines Screen MDMA (Ecstasy) Screen Benzodiazepines Screen Cocaine Screen U Marijuana (THC) Screen Blood Type O POSITIVE Antibody Screen Negative 08/27/16 08/27/16 08/27/16 03:28 06:58 06:58 WBC RBC Hgb Hct MCV MCHC RDW Plt Count MPV Neutrophils % Lymphocytes % Monocytes % Eosinophils % Basophils % INR Sodium Potassium Chloride Carbon Dioxide Anion Gap BUN Creatinine Creat Clearance w eGFR Random Glucose Hemoglobin A1c % Calcium Phosphorus Magnesium Total Bilirubin AST ALT Alkaline Phosphatase Creatine Kinase Creatine Kinase Index CK-MB (CK-2) CK-MB (CK-2) Rel Index Troponin I B-Natriuretic Peptide Total Protein Albumin Triglycerides 176 H D Cholesterol 200 Total LDL Cholesterol 121 H D HDL Cholesterol 52 Lipase Urine Color Straw Urine Appearance Clear Urine pH 5.0 Ur Specific [place] 1.042 H Urine Protein Negative Urine Glucose (UA) Negative Urine Ketones Negative Urine Blood Negative Urine Nitrite Negative Urine Bilirubin Negative Urine Urobilinogen Negative Ur Leukocyte Esterase Negative Opiates Screen Negative Methadone Screen Negative Barbiturate Screen Negative Phencyclidine Screen Negative Ur Amphetamines Screen Negative MDMA (Ecstasy) Screen Negative Benzodiazepines Screen Negative Cocaine Screen Negative U Marijuana (THC) Screen Positive Blood Type Antibody Screen 08/27/16 07:55 WBC RBC Hgb Hct MCV MCHC RDW Plt Count MPV Neutrophils % Lymphocytes % Monocytes % Eosinophils % Basophils % INR Sodium Potassium Chloride Carbon Dioxide Anion Gap BUN Creatinine Creat Clearance w eGFR Random Glucose Hemoglobin A1c % Calcium Phosphorus Magnesium Total Bilirubin AST ALT Alkaline Phosphatase Creatine Kinase 244 Creatine Kinase Index CK-MB (CK-2) CK-MB (CK-2) Rel Index Troponin I < 0.02 B-Natriuretic Peptide Total Protein Albumin Triglycerides Cholesterol Total LDL Cholesterol HDL Cholesterol Lipase Urine Color Urine Appearance Urine pH Ur Specific [place] Urine Protein Urine Glucose (UA) Urine Ketones Urine Blood Urine Nitrite Urine Bilirubin Urine Urobilinogen Ur Leukocyte Esterase Opiates Screen Methadone Screen Barbiturate Screen Phencyclidine Screen Ur Amphetamines Screen MDMA (Ecstasy) Screen Benzodiazepines Screen Cocaine Screen U Marijuana (THC) Screen Blood Type Antibody Screen Laboratory Tests 08/27/16 08/27/16 08/27/16 03:13 03:13 03:13 WBC 11.7 H RBC 4.75 Hgb 13.7 Hct 41.3 MCV 86.9 MCHC 33.2 RDW 12.5 Plt Count 258 MPV 8.0 Neutrophils % 60.0 Lymphocytes % 31.4 Monocytes % 7.1 Eosinophils % 0.9 Basophils % 0.6 INR 1.02 Sodium 143 Potassium 3.5 Chloride 109 H Carbon Dioxide 21 Anion Gap 13 BUN 10 D Creatinine 0.8 Creat Clearance w eGFR > 60 Random Glucose 116 H D Hemoglobin A1c % Calcium 8.7 Phosphorus 2.7 Magnesium 1.8 Total Bilirubin 0.5 AST 18 D ALT 24 Alkaline Phosphatase 75 Creatine Kinase 280 Creatine Kinase Index 0.5 CK-MB (CK-2) 1.293 CK-MB (CK-2) Rel Index Troponin I < 0.02 B-Natriuretic Peptide 24.21 Total Protein 6.8 Albumin 3.6 Triglycerides Cholesterol Total LDL Cholesterol HDL Cholesterol Lipase 107 Urine Color Urine Appearance Urine pH Ur Specific [place] Urine Protein Urine Glucose (UA) Urine Ketones Urine Blood Urine Nitrite Urine Bilirubin Urine Urobilinogen Ur Leukocyte Esterase Opiates Screen Methadone Screen Barbiturate Screen Phencyclidine Screen Ur Amphetamines Screen MDMA (Ecstasy) Screen Benzodiazepines Screen Cocaine Screen U Marijuana (THC) Screen Blood Type Antibody Screen 08/27/16 08/27/16 08/27/16 03:13 03:13 03:13 WBC RBC Hgb Hct MCV MCHC RDW Plt Count MPV Neutrophils % Lymphocytes % Monocytes % Eosinophils % Basophils % INR Sodium Potassium Chloride Carbon Dioxide Anion Gap BUN Creatinine Creat Clearance w eGFR Random Glucose Hemoglobin A1c % 5.9 D Calcium Phosphorus Magnesium Total Bilirubin AST ALT Alkaline Phosphatase Creatine Kinase Creatine Kinase Index CK-MB (CK-2) CK-MB (CK-2) Rel Index Cancelled Troponin I B-Natriuretic Peptide Total Protein Albumin Triglycerides Cholesterol Total LDL Cholesterol HDL Cholesterol Lipase Urine Color Urine Appearance Urine pH Ur Specific [place] Urine Protein Urine Glucose (UA) Urine Ketones Urine Blood Urine Nitrite Urine Bilirubin Urine Urobilinogen Ur Leukocyte Esterase Opiates Screen Methadone Screen Barbiturate Screen Phencyclidine Screen Ur Amphetamines Screen MDMA (Ecstasy) Screen Benzodiazepines Screen Cocaine Screen U Marijuana (THC) Screen Blood Type O POSITIVE Antibody Screen Negative 08/27/16 08/27/16 08/27/16 03:28 06:58 06:58 WBC RBC Hgb Hct MCV MCHC RDW Plt Count MPV Neutrophils % Lymphocytes % Monocytes % Eosinophils % Basophils % INR Sodium Potassium Chloride Carbon Dioxide Anion Gap BUN Creatinine Creat Clearance w eGFR Random Glucose Hemoglobin A1c % Calcium Phosphorus Magnesium Total Bilirubin AST ALT Alkaline Phosphatase Creatine Kinase Creatine Kinase Index CK-MB (CK-2) CK-MB (CK-2) Rel Index Troponin I B-Natriuretic Peptide Total Protein Albumin Triglycerides 176 H D Cholesterol 200 Total LDL Cholesterol 121 H D HDL Cholesterol 52 Lipase Urine Color Straw Urine Appearance Clear Urine pH 5.0 Ur Specific [place] 1.042 H Urine Protein Negative Urine Glucose (UA) Negative Urine Ketones Negative Urine Blood Negative Urine Nitrite Negative Urine Bilirubin Negative Urine Urobilinogen Negative Ur Leukocyte Esterase Negative Opiates Screen Negative Methadone Screen Negative Barbiturate Screen Negative Phencyclidine Screen Negative Ur Amphetamines Screen Negative MDMA (Ecstasy) Screen Negative Benzodiazepines Screen Negative Cocaine Screen Negative U Marijuana (THC) Screen Positive Blood Type Antibody Screen 08/27/16 08/27/16 07:55 07:55 WBC RBC Hgb Hct MCV MCHC RDW Plt Count MPV Neutrophils % Lymphocytes % Monocytes % Eosinophils % Basophils % INR Sodium Potassium Chloride Carbon Dioxide Anion Gap BUN Creatinine Creat Clearance w eGFR Random Glucose Hemoglobin A1c % Calcium Phosphorus Magnesium Total Bilirubin AST ALT Alkaline Phosphatase Creatine Kinase 244 Creatine Kinase Index 0.5 CK-MB (CK-2) 1.6 CK-MB (CK-2) Rel Index Cancelled Troponin I < 0.02 B-Natriuretic Peptide Total Protein Albumin Triglycerides Cholesterol Total LDL Cholesterol HDL Cholesterol Lipase Urine Color Urine Appearance Urine pH Ur Specific [place] Urine Protein Urine Glucose (UA) Urine Ketones Urine Blood Urine Nitrite Urine Bilirubin Urine Urobilinogen Ur Leukocyte Esterase Opiates Screen Methadone Screen Barbiturate Screen Phencyclidine Screen Ur Amphetamines Screen MDMA (Ecstasy) Screen Benzodiazepines Screen Cocaine Screen U Marijuana (THC) Screen Blood Type Antibody Screen Imaging - Results Chest X-ray: Image Reviewed EKG: Image Reviewed (sr lvh) Problem List - Problems (1) Chest pain Code(s): R07.9 - CHEST PAIN, UNSPECIFIED Qualifiers: Chest pain type: other chest pain Qualified Code(s): R07.89 - Other chest pain; R07.8 - Other chest pain Assessment/Plan chest pain sx htn hld copd gerd plan agree with telemetry r/o mi echo mibi stress test if 3 sets of CE neg low dose beta blockers if tolerates.
[2016-08-27] MEDS ORDERED: LOSARTAN POTASSIUM 25 MG TABLET ONE (10:18)
[2016-08-27] MEDS ORDERED: ASPIRIN 81 MG CHEWABLE TABLETS ONE (10:18)
[2016-08-27] MEDS ORDERED: PANTOPRAZOLE 40 MG TABLET (FP) ONE (10:18)
[2016-08-27] MEDS ORDERED: LORATADINE 10 MG TABLET ONE (10:18)
[2016-08-27] MEDS: ASPIRIN COATED 81 MG TABLET.EC PO SCH (10:38)
[2016-08-27] MEDS: PANTOPRAZOLE 40 MG TABLET (FP) PO SCH (10:38)
[2016-08-27] MEDS: LORATADINE 10 MG TABLET PO SCH (10:38)
[2016-08-27] MEDS: LOSARTAN POTASSIUM 50 MG TABLET (FP) PO SCH (10:38)
--- NOTE | 2016-08-27 12:44 | EKG ---
Test Reason : Blood Pressure : / mmHG Vent. Rate : 077 BPM Atrial Rate : 077 BPM P-R Int : 134 ms QRS Dur : 082 ms QT Int : 374 ms P-R-T Axes : 059 -34 005 degrees QTc Int : 423 ms SINUS RHYTHM WITH OCCASIONAL PREMATURE VENTRICULAR COMPLEXES POSSIBLE LEFT ATRIAL ENLARGEMENT LEFT AXIS DEVIATION NONSPECIFIC T WAVE ABNORMALITY ABNORMAL ECG NO PREVIOUS ECGS AVAILABLE CLINICAL CORRELATION IS RECOMMENDED Confirmed by KERMIT ZAVALA, DAVID ([id number] on 08/27/2016 12:43:50 PM Referred By: Confirmed By:DAVID CARMEN MD
[2016-08-27] MEDS ORDERED: INFLUENZA VACCINE 45 MCG/0.5 ML (MDV 16-17) IM ONE (12:53)
[2016-08-27] MEDS ORDERED: PNEUMOC 13-VAL CONJ-DIP CRM/PF 0.5 ML DISP.SYRIN IM ONE (12:54)
[2016-08-27] MEDS ORDERED: PNEUMOCOCCAL 23 VACCINE 0.5 ML VIAL IM ONE (13:30)
--- NOTE | 2016-08-27 14:03 | MSN ---
Progress Note (short form) - Note Progress Note: Saw patient this AM. Patient states that he has had no new complaints since admission. Patient still complains of left sided reproducible chest pain that currently is non-radiating and is 3/10 in intensity. Patient has not been given PRN Tylenol since admission. Patient still feels a little short of breath despite saturating 100% on 2L nasal cannula. As per Cardiology consult, patient will continue to be monitored on telemetry floor and will need a mibi stress test if Janae are negative x3. Patient to be NPO after midnight for stress test tomorrow AM. Patient will be started on Lopressor 12.5 mg PO BID and will need an echo. Trops negative x2. Will continue to trend Janae and monitor patient's vitals and labs. Current Medications Generic Name Dose Route Start Last Admin Trade Name Freq PRN Reason Stop Dose Admin Acetaminophen 650 mg 08/27/16 05:43 Tylenol - PO Q4H PRN FEVER OR PAIN Albuterol Sulfate 1 - 2 puff 08/27/16 06:24 Ventolin Hfa Inhaler - IH PRN PRN SHORTNESS OF BREATH Aspirin 81 mg 08/27/16 10:00 08/27/16 10:38 Ecotrin - PO 81 mg DAILY TASHA Administration Loratadine 10 mg 08/27/16 10:00 08/27/16 10:38 Claritin - PO 10 mg DAILY TASHA Administration Losartan Potassium 50 mg 08/27/16 10:00 08/27/16 10:38 Cozaar - PO 50 mg DAILY TASHA Administration Metoprolol Tartrate 12.5 mg 08/27/16 22:00 Lopressor - PO BID TASHA Pantoprazole Sodium 40 mg 08/27/16 10:00 08/27/16 10:38 Protonix - PO 40 mg DAILY TASHA Administration Vital Signs Period Temp Pulse Resp BP Sys/Meier Pulse Ox Last 24 Hr 98 F-98.2 F 62-88 12-18 109-142/62-89 96-100 PHYSICAL EXAM GENERAL: Alert and oriented to time and place, in no distress EYES: PERRLA, EOMI, conjunctiva clear bilaterally ENT: Ears normal, nares patent, no signs of trauma NECK: Trachea midline, no JVD HEART: Regular rate, rhythm, +S1, S2, no murmurs, gallops. Left sided, currently non-radiating chest pain, 3/10, TTP LUNGS: Equal breath sounds bilaterally, no wheezes, rhonchi ABDOMEN: Soft, nontender, normoactive bowel sounds in all four quadrants NEURO: wireless team member intact, normal speech, gait not observed EXTREMITIES: 2+ pulses bilaterally, well perfused, no edema Laboratory Results - last 24 hr 08/27/16 08/27/16 08/27/16 03:13 03:13 03:13 WBC 11.7 H RBC 4.75 Hgb 13.7 Hct 41.3 MCV 86.9 MCHC 33.2 RDW 12.5 Plt Count 258 MPV 8.0 Neutrophils % 60.0 Lymphocytes % 31.4 Monocytes % 7.1 Eosinophils % 0.9 Basophils % 0.6 INR 1.02 Sodium 143 Potassium 3.5 Chloride 109 H Carbon Dioxide 21 Anion Gap 13 BUN 10 D Creatinine 0.8 Creat Clearance w eGFR > 60 Random Glucose 116 H D Hemoglobin A1c % Calcium 8.7 Phosphorus 2.7 Magnesium 1.8 Total Bilirubin 0.5 AST 18 D ALT 24 Alkaline Phosphatase 75 Creatine Kinase 280 Creatine Kinase Index 0.5 CK-MB (CK-2) 1.293 CK-MB (CK-2) Rel Index Troponin I < 0.02 B-Natriuretic Peptide 24.21 Total Protein 6.8 Albumin 3.6 Triglycerides Cholesterol Total LDL Cholesterol HDL Cholesterol Lipase 107 Urine Color Urine Appearance Urine pH Ur Specific [place] Urine Protein Urine Glucose (UA) Urine Ketones Urine Blood Urine Nitrite Urine Bilirubin Urine Urobilinogen Ur Leukocyte Esterase Opiates Screen Methadone Screen Barbiturate Screen Phencyclidine Screen Ur Amphetamines Screen MDMA (Ecstasy) Screen Benzodiazepines Screen Cocaine Screen U Marijuana (THC) Screen Blood Type Antibody Screen 08/27/16 08/27/16 08/27/16 03:13 03:13 03:13 WBC RBC Hgb Hct MCV MCHC RDW Plt Count MPV Neutrophils % Lymphocytes % Monocytes % Eosinophils % Basophils % INR Sodium Potassium Chloride Carbon Dioxide Anion Gap BUN Creatinine Creat Clearance w eGFR Random Glucose Hemoglobin A1c % 5.9 D Calcium Phosphorus Magnesium Total Bilirubin AST ALT Alkaline Phosphatase Creatine Kinase Creatine Kinase Index CK-MB (CK-2) CK-MB (CK-2) Rel Index Cancelled Troponin I B-Natriuretic Peptide Total Protein Albumin Triglycerides Cholesterol Total LDL Cholesterol HDL Cholesterol Lipase Urine Color Urine Appearance Urine pH Ur Specific [place] Urine Protein Urine Glucose (UA) Urine Ketones Urine Blood Urine Nitrite Urine Bilirubin Urine Urobilinogen Ur Leukocyte Esterase Opiates Screen Methadone Screen Barbiturate Screen Phencyclidine Screen Ur Amphetamines Screen MDMA (Ecstasy) Screen Benzodiazepines Screen Cocaine Screen U Marijuana (THC) Screen Blood Type O POSITIVE Antibody Screen Negative 08/27/16 08/27/16 08/27/16 03:28 06:58 06:58 WBC RBC Hgb Hct MCV MCHC RDW Plt Count MPV Neutrophils % Lymphocytes % Monocytes % Eosinophils % Basophils % INR Sodium Potassium Chloride Carbon Dioxide Anion Gap BUN Creatinine Creat Clearance w eGFR Random Glucose Hemoglobin A1c % Calcium Phosphorus Magnesium Total Bilirubin AST ALT Alkaline Phosphatase Creatine Kinase Creatine Kinase Index CK-MB (CK-2) CK-MB (CK-2) Rel Index Troponin I B-Natriuretic Peptide Total Protein Albumin Triglycerides 176 H D Cholesterol 200 Total LDL Cholesterol 121 H D HDL Cholesterol 52 Lipase Urine Color Straw Urine Appearance Clear Urine pH 5.0 Ur Specific [place] 1.042 H Urine Protein Negative Urine Glucose (UA) Negative Urine Ketones Negative Urine Blood Negative Urine Nitrite Negative Urine Bilirubin Negative Urine Urobilinogen Negative Ur Leukocyte Esterase Negative Opiates Screen Negative Methadone Screen Negative Barbiturate Screen Negative Phencyclidine Screen Negative Ur Amphetamines Screen Negative MDMA (Ecstasy) Screen Negative Benzodiazepines Screen Negative Cocaine Screen Negative U Marijuana (THC) Screen Positive Blood Type Antibody Screen 08/27/16 08/27/16 07:55 07:55 WBC RBC Hgb Hct MCV MCHC RDW Plt Count MPV Neutrophils % Lymphocytes % Monocytes % Eosinophils % Basophils % INR Sodium Potassium Chloride Carbon Dioxide Anion Gap BUN Creatinine Creat Clearance w eGFR Random Glucose Hemoglobin A1c % Calcium Phosphorus Magnesium Total Bilirubin AST ALT Alkaline Phosphatase Creatine Kinase 244 Creatine Kinase Index 0.5 CK-MB (CK-2) 1.6 CK-MB (CK-2) Rel Index Cancelled Troponin I < 0.02 B-Natriuretic Peptide Total Protein Albumin Triglycerides Cholesterol Total LDL Cholesterol HDL Cholesterol Lipase Urine Color Urine Appearance Urine pH Ur Specific [place] Urine Protein Urine Glucose (UA) Urine Ketones Urine Blood Urine Nitrite Urine Bilirubin Urine Urobilinogen Ur Leukocyte Esterase Opiates Screen Methadone Screen Barbiturate Screen Phencyclidine Screen Ur Amphetamines Screen MDMA (Ecstasy) Screen Benzodiazepines Screen Cocaine Screen U Marijuana (THC) Screen Blood Type Antibody Screen IMAGING EKG: Impression: sinus rhythm with occasional premature ventricular complexes possible left atrial enlargement left axis deviation nonspecific T wave abnormality CXR: No acute pathology, no change of an adverse event since 04/13/14 CT Angio: No evidence of pulmonary embolism ASSESSMENT/PLAN 55 y/o M with PMHx of HTN, GERD, asthma, presents to the ED w/ chest pain. Admitted for atypical chest pain, r/o ACS 1. Atypical chest pain, r/o ACS -Troponins negative x2, continue to trend -Aspirin 81 mg PO Daily -Lopressor 12.5 mg PO BID -Tylenol PRN for pain -Pt will need echo -Cardiology consult appreciated -Mibi stress test if Janae negative x3, -NPO starting at 12am 2. GERD -Loratidine 10 mg PO Daily 3. HTN -Losartan 50 mg PO Daily 4. Asthma -Albuterol PRN 5. PPx -DVT - SCDs -GI - Protonix Dispo: Monitor on telemetry floor
[2016-08-27 15:49] LABS: TROPONIN I < 0.02 ng/ml (0.00-0.05)
--- NOTE | 2016-08-27 17:12 | PN ---
Physical Exam: SUBJECTIVE: Patient seen and examined Pt has no more chest pain no palpitation No sob No dizziness OBJECTIVE: Vital Signs Period Temp Pulse Resp BP Sys/Meier Pulse Ox Last 24 Hr 98 F-98.7 F 62-72 12-20 109-142/62-80 96-100 GENERAL: The patient is awake, alert, and fully oriented, in no acute distress. HEAD: Normal with no signs of trauma. LUNGS: Breath sounds equal, clear to auscultation bilaterally, no wheezes, no crackles, no accessory muscle use. HEART: Regular rate and rhythm, S1, S2 without murmur, rub or gallop. ABDOMEN: Soft, nontender, nondistended, normoactive bowel sounds, no guarding, no rebound, no hepatosplenomegaly, no masses. EXTREMITIES: 2+ pulses, warm, well-perfused, no edema. NEUROLOGICAL: Normal speech, gait not observed. PSYCH: Normal mood, normal affect. SKIN: Warm, dry, normal turgor, no rashes or lesions noted Laboratory Results - last 24 hr 08/27/16 08/27/16 08/27/16 06:58 06:58 07:55 Creatine Kinase 244 Creatine Kinase Index 0.5 CK-MB (CK-2) 1.6 CK-MB (CK-2) Rel Index Troponin I < 0.02 Urine Color Straw Urine Appearance Clear Urine pH 5.0 Ur Specific [place] 1.042 H Urine Protein Negative Urine Glucose (UA) Negative Urine Ketones Negative Urine Blood Negative Urine Nitrite Negative Urine Bilirubin Negative Urine Urobilinogen Negative Ur Leukocyte Esterase Negative Opiates Screen Negative Methadone Screen Negative Barbiturate Screen Negative Phencyclidine Screen Negative Ur Amphetamines Screen Negative MDMA (Ecstasy) Screen Negative Benzodiazepines Screen Negative Cocaine Screen Negative U Marijuana (THC) Screen Positive 08/27/16 08/27/16 07:55 14:20 Creatine Kinase 224 Creatine Kinase Index CK-MB (CK-2) CK-MB (CK-2) Rel Index Cancelled Troponin I < 0.02 Urine Color Urine Appearance Urine pH Ur Specific [place] Urine Protein Urine Glucose (UA) Urine Ketones Urine Blood Urine Nitrite Urine Bilirubin Urine Urobilinogen Ur Leukocyte Esterase Opiates Screen Methadone Screen Barbiturate Screen Phencyclidine Screen Ur Amphetamines Screen MDMA (Ecstasy) Screen Benzodiazepines Screen Cocaine Screen U Marijuana (THC) Screen Active Medications Generic Name Dose Route Start Last Admin Trade Name Freq PRN Reason Stop Dose Admin Acetaminophen 650 mg 08/27/16 05:43 Tylenol - PO Q4H PRN FEVER OR PAIN Albuterol Sulfate 1 - 2 puff 08/27/16 06:24 Ventolin Hfa Inhaler - IH PRN PRN SHORTNESS OF BREATH Aspirin 81 mg 08/27/16 10:00 08/27/16 10:38 Ecotrin - PO 81 mg DAILY TASHA Administration Loratadine 10 mg 08/27/16 10:00 08/27/16 10:38 Claritin - PO 10 mg DAILY TASHA Administration Losartan Potassium 50 mg 08/27/16 10:00 08/27/16 10:38 Cozaar - PO 50 mg DAILY TASHA Administration Metoprolol Tartrate 12.5 mg 08/27/16 22:00 Lopressor - PO BID TASHA Pantoprazole Sodium 40 mg 08/27/16 10:00 08/27/16 10:38 Protonix - PO 40 mg DAILY TASHA Administration CBC, BMP 08/27/16 03:13 08/27/16 03:13 ASSESSMENT/PLAN: 55 year old male current smoker with pmh of HTN, Asthma, GERD presented to the ED with complaint of chest pain Atypical chest pain r/o ACS Chest pain sound pleuretic with increase pain on deep breath, cough. chest pain is reproducible on palpation Chest Xray was negative CTA chest was showed some emphysematous changes, negative for pneumonia, PE, Effusion Troponins was negative time 3 Echo was done pending reading Cardiology was consulted Pt is scheduled Stress Test In am NPO after midnight HTN On losartan Started on metoprolol by cardiology Asthma Albuterol PRN GERD Protonix 40mg PO daily DVT Prophylaxis: SCD FEN Fluid: none Electrolytes: None Nutrition: NPO after midnight Disposition: keep in telemetry pending stress test. Visit type - Emergency Visit Emergency Visit: Yes ED Registration Date: 08/27/16 Care time: The patient presented to the Emergency Department on the above date and was hospitalized for further evaluation of their emergent condition. - New Patient This patient is new to me today: Yes Date on this admission: 08/29/16 - Critical Care Critical Care patient: No - Discharge Referral Referred to [facility] Med P.C.: No
[2016-08-27] MEDS: ACETAMINOPHEN 325 MG TABLET (FP) PO PRN (17:58)
--- NOTE | 2016-08-27 18:04 | PN ---
Teaching Attending Note Name of Resident: Avelino Cooney ATTENDING PHYSICIAN STATEMENT I saw and evaluated the patient. I reviewed the resident's note and discussed the case with the resident. I agree with the resident's findings and plan as documented. SUBJECTIVE:currently having CP which is similar in nature to pain he experienced this AM but not as severe as this morning. had similar episode 3 years ago and had stress and echo at that time which he reports as negative. had subjective fevers and chills 2 weeks ago but no cough or URI like symptoms which self resolved. ambulates daily with cane and walks several blocks which he does not have to stop due to CP. no SOB, fever, chills, palpitations, states he occasionally does heavy lifting OBJECTIVE: Last Vital Signs Temp Pulse Resp BP Pulse Ox 98.7 F 67 20 123/73 96 08/27/16 14:00 08/27/16 14:00 08/27/16 14:00 08/27/16 14:00 08/27/16 12:37 General NAD CV S1 S2 RRR no murmur/rub/gallop +L sided chest pain Lungs CTA B/L No wheezing/rales/rhonchi ASSESSMENT AND PLAN: 55yo M with PMH HTN, CAD and asthma presented to the ER and was admitted for further evaluation of their emergent condition 1. Typical CP- no events on monitor technician. symptoms sound pleuritic in the nature however since pain awoke him from sleep is worrisome. cardiac markers neg x3. echo with no WMA. NPO tonight for NMST in AM. cardio on board. CTA negative for PE. started on low dose betablocker. on asa. 2. HTN- controlled. monitor 3. DVT ppx- EAM 4. d/c planning in AM pending results of stress test.
[2016-08-27] MEDS: METOPROLOL TARTRATE 25 MG TABLET (FP) PO SCH (21:43)
[2016-08-28] MEDS: ACETAMINOPHEN 325 MG TABLET (FP) PO PRN (10:05)
[2016-08-28] MEDS ORDERED: CLOPIDOGREL BISULFATE 300 MG TABLET PO ONE (13:00)
[2016-08-28] MEDS: PANTOPRAZOLE 40 MG TABLET (FP) PO SCH (13:40)
[2016-08-28] MEDS: METOPROLOL TARTRATE 25 MG TABLET (FP) PO SCH (13:40)
[2016-08-28] MEDS: LOSARTAN POTASSIUM 50 MG TABLET (FP) PO SCH (13:41)
[2016-08-28] MEDS: LORATADINE 10 MG TABLET PO SCH (13:41)
[2016-08-28] MEDS: ASPIRIN COATED 81 MG TABLET.EC PO SCH (13:41)
[2016-08-28] MEDS ORDERED: ALBUTEROL SO4 2.5/IPRATROPIUM 0.5 INH SOL 3 ML VIAL.NEB. NEB PRN (13:51)
--- NOTE | 2016-08-28 14:14 | PN ---
Progress Note, Physician History of Present Illness: Patient is a 55 year old male with a significant past medical history of hypertension, asthma, chronic back pain and ?heart disease who presents to the ED via EMS with complaint of chest pain since 2 AM. Patient states that sharp chest pain, nonradiating, woke him up from his sleep. As per EMS, the patient was given 340 mg baby aspirin and nitro and his last BP was 134/75. Patient notes that he experienced similar pain before. Patient reports associated SOB with chest pain that is intermittent. Patient reports chest pain upon taking of a deep breath. He denies any fall, trauma or LOC. He denies any recent travel or long trip. 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 Allergies: NKA PMH HTN Hyperlipidemia lower back pain Lower Back Pain Negative MIBI stress test 2012 - Current Medication List Current Medications: Active Medications Acetaminophen (Tylenol -) 650 mg PO Q4H PRN PRN Reason: FEVER OR PAIN Last Admin: 08/28/16 10:05 Dose: 650 mg Albuterol Sulfate (Ventolin Hfa Inhaler -) 1 - 2 puff IH PRN PRN PRN Reason: SHORTNESS OF BREATH Albuterol/Ipratropium (Duoneb -) 1 amp NEB Q4H PRN PRN Reason: SHORTNESS OF BREATH Aspirin (Ecotrin -) 81 mg PO DAILY [facility] Last Admin: 08/28/16 13:41 Dose: 81 mg Atorvastatin Calcium (Lipitor -) 40 mg PO [facility] Clopidogrel Bisulfate (Plavix -) 75 mg PO DAILY [facility] Loratadine (Claritin -) 10 mg PO DAILY [facility] Last Admin: 08/28/16 13:41 Dose: 10 mg Losartan Potassium (Cozaar -) 50 mg PO DAILY [facility] Last Admin: 08/28/16 13:41 Dose: 50 mg Metoprolol Tartrate (Lopressor -) 12.5 mg PO BID [facility] Last Admin: 08/28/16 13:40 Dose: 12.5 mg Pantoprazole Sodium (Protonix -) 40 mg PO DAILY [facility] Last Admin: 08/28/16 13:40 Dose: 40 mg - Objective Vital Signs: Vital Signs Temperature 98.2 F 08/28/16 07:48 Pulse Rate 60 08/28/16 07:48 Respiratory Rate 14 08/28/16 07:48 Blood Pressure 114/64 08/28/16 07:48 O2 Sat by Pulse Oximetry (%) 96 08/28/16 09:00 Eyes: Yes: WNL, Conjunctiva Clear, EOM Intact HENT: Yes: WNL, Atraumatic, Normocephalic Neck: Yes: WNL, Supple, Trachea Midline Cardiovascular: Yes: WNL, Regular Rate and Rhythm Respiratory: Yes: WNL, Regular, CTA Bilaterally Gastrointestinal: Yes: WNL, Normal Bowel Sounds Genitourinary: Yes: WNL Musculoskeletal: Yes: WNL Extremities: Yes: WNL Edema: No Integumentary: Yes: WNL Neurological: Yes: WNL, Alert, Oriented ...Motor Strength: WNL Psychiatric: Yes: WNL Labs: INR, PTT INR 1.02 (0.82-1.09) 08/27/16 03:13 Problem List - Problems (1) Chest pain Code(s): R07.9 - CHEST PAIN, UNSPECIFIED Qualifiers: Chest pain type: other chest pain Qualified Code(s): R07.89 - Other chest pain; R07.8 - Other chest pain Assessment/Plan chest pain sx htn hld copd gerd plan positive MIBI ST will transfer to [facility]. for c. cath.
[2016-08-28] MEDS ORDERED: ATORVASTATIN CA 40 MG TABLET (FP) PO ONE (14:45)
--- NOTE | 2016-08-28 14:45 | PN ---
Progress Note (short form) - Note Progress Note: currently asymptomatic. no recurrent episodes of CP. denies CP, SOB,fever, chills, N/V/C/D Current Medications Generic Name Dose Route Start Last Admin Trade Name Freq PRN Reason Stop Dose Admin Acetaminophen 650 mg 08/27/16 05:43 08/28/16 10:05 Tylenol - PO 650 mg Q4H PRN Administration FEVER OR PAIN Albuterol Sulfate 1 - 2 puff 08/27/16 06:24 Ventolin Hfa Inhaler - IH PRN PRN SHORTNESS OF BREATH Albuterol/Ipratropium 1 amp 08/28/16 13:51 08/28/16 14:25 Duoneb - NEB 1 amp Q4H PRN Administration SHORTNESS OF BREATH Aspirin 81 mg 08/27/16 10:00 08/28/16 13:41 Ecotrin - PO 81 mg DAILY TASHA Administration Atorvastatin Calcium 40 mg 08/28/16 22:00 Lipitor - PO HS TASHA Atorvastatin Calcium 40 mg 08/28/16 14:45 Lipitor - PO 08/28/16 14:46 NOW ONE Clopidogrel Bisulfate 75 mg 08/29/16 10:00 Plavix - PO DAILY TASHA Loratadine 10 mg 08/27/16 10:00 08/28/16 13:41 Claritin - PO 10 mg DAILY TASHA Administration Losartan Potassium 50 mg 08/27/16 10:00 08/28/16 13:41 Cozaar - PO 50 mg DAILY TASHA Administration Metoprolol Tartrate 12.5 mg 08/27/16 22:00 08/28/16 13:40 Lopressor - PO 12.5 mg BID TASHA Administration Pantoprazole Sodium 40 mg 08/27/16 10:00 08/28/16 13:40 Protonix - PO 40 mg DAILY TASHA Administration Last Vital Signs Temp Pulse Resp BP Pulse Ox 98.2 F 60 14 114/64 96 08/28/16 07:48 08/28/16 07:48 08/28/16 07:48 08/28/16 07:48 08/28/16 09:00 General NAD CV S1 S2 RRR no murmur/rub/gallop +L sided chest pain Lungs CTA B/L No wheezing/rales/rhonchi ASSESSMENT AND PLAN: 55yo M with PMH HTN, CAD and asthma presented to the ER and was admitted for further evaluation of their emergent condition 1. Typical CP-cardiac enzymes neg x3. + ischemia on inferior wall on stress. NPO tonight for cardiac cath tomorrow. cont low dose betablocker. on asa. 2. HTN- controlled. monitor 3. DVT ppx- EAM 4. transfer for cardiac cath in the AM. Visit type - Emergency Visit Emergency Visit: Yes ED Registration Date: 08/27/16 Care time: The patient presented to the Emergency Department on the above date and was hospitalized for further evaluation of their emergent condition. - New Patient This patient is new to me today: No - Critical Care Critical Care patient: No - Discharge Referral Referred to [facility] Med P.C.: No
[2016-08-28 20:06] VITALS: BP 137/90; PULSE 71; TEMP 98
[2016-08-28] MEDS ORDERED: ATORVASTATIN CA 40 MG TABLET (FP) PO SCH (22:00)
--- NOTE | 2016-08-29 05:47 | DS ---
Physical Exam: SUBJECTIVE: Patient seen and examined OBJECTIVE: Vital Signs Period Temp Pulse Resp BP Sys/Meier Pulse Ox Last 24 Hr 97.8 F-98.2 F 60-78 14-20 114-137/64-90 96 PHYSICAL EXAM LABS HOSPITAL COURSE: Date of Admission:08/27/16 Patient is a 55 year old male with significant PMH of HTN, Asthma, chronic back pain & 1/2PPD cigarette smoking who presents to ED with chest pain. Patient states he was awoken at 2 AM with sharp left-sided chest pain. Pain was 4/10, nonradiating and associated with some mild shortness of breath. The pain is increased with deep breaths and is reproducible with palpation or movement. Patient also reports that he has had a moderate cough the last 3 days, nonproductive. He states he has been coughing aggressively over that time frame. Denies lightheadedness, palpitations, headache, visual changes. He denies any fall, trauma or LOC. Given Aspirin 340 & nitro by EMS with some mild improvement in pain. HEART SCORE 4. ODALYS SCORE 3 ER course was notable for: (1)EKG: NSR (2)Trops (-) x1 (3)CTA (-) for PE (as per preliminary read). 55 year old male current smoker with pmh of HTN, Asthma, GERD presented to the ED with complaint of chest pain. A diagnosis of Chest pain r/o ACS. Chest Xray was negative. CTA chest was showed some emphysematous changes, negative for pneumonia, PE, Effusion. Troponins was negative time 3. Cardiology was consulted. Echo was done and showed no wall motion abnormality, rvsp 36. Pt had positive Stress Test showing moderately sized moderate intensity reversible inferior wall perfusion defect consistent with ischemia, mild global hypokinesia , EF 48%, transient ischemic dilation 1.06. Pt was transferred to [facility] for cardiac catherization. Pt has HTN was on losartan and was started on metoprolol by cardiology prior to transfer. Date of Discharge: 08/29/16 Minutes to complete discharge: 40 Discharge Summary Reason For Visit: CHEST PAIN Current Active Problems Chest pain (Acute) Condition: Guarded - Instructions Referrals: Tiny Damon MD [Primary Care Provider] - Disposition: TRANSFER ACUTE CARE/OTHER HOSP - Home Medications Comprehensive Discharge Medication List: Ambulatory Orders Aspirin [Ecotrin] 81 mg PO WEEKLY 02/26/16 Losartan Potassium [Cozaar -] 50 mg PO DAILY 02/26/16 Albuterol Sulfate Inhaler - [Ventolin HFA Inhaler -] 1 - 2 inh PO PRN 02/27/16 Loratadine [Claritin] 10 mg PO DAILY 05/14/16 Pantoprazole Sodium [Protonix] 40 mg PO DAILY #0 tablet. 05/14/16 This patient is new to me today: Yes Emergency Visit: Yes ED Registration Date: 08/27/16 Care time: The patient presented to the Emergency Department on the above date and was hospitalized for further evaluation of their emergent condition. Critical Care patient: No - Discharge Referral Referred to [facility] Med P.C.: No
[2016-08-29] MEDS ORDERED: CLOPIDOGREL BISULFATE 75 MG TABLET (FP) PO SCH (10:00)
== END 2016-08-28 19:21 | disposition short-term general hospital (02) ==
LOC: JER 02:51 → JERBED 05:43 → INTOOBSV 06:06 → JERBED 06:06 → OBSVTOIN 06:06 → UNDOADMOB 06:06 → JERBED 06:24 → UNDOADMIN 06:24 → UNDOADMOB 06:31 → JERBED 06:31 → INTOOBSV 06:31 → JERBED 11:13 → J4W 11:13
PROVIDERS: ADMIT Internal Medicine; ATTEND Internal Medicine
PROC: 3E0F7GC Introduction of Other Therapeutic Substance into Respiratory Tract, Via Natural or Artificial Opening (ICD-10-PCS; principal; 2016-08-27)
PROC: 3E0337Z Introduction of Electrolytic and Water Balance Substance into Peripheral Vein, Percutaneous Approach (ICD-10-PCS; 2016-08-27)
PROC: 3E0234Z Introduction of Serum, Toxoid and Vaccine into Muscle, Percutaneous Approach (ICD-10-PCS; 2016-08-27)
DX: R07.89 Other chest pain (principal); I10 Essential (primary) hypertension; J45.909 Unspecified asthma, uncomplicated; F17.210 Nicotine dependence, cigarettes, uncomplicated; K21.9 Gastro-esophageal reflux disease without esophagitis; M54.5 Low back pain; G89.29 Other chronic pain; Z79.82 Long term (current) use of aspirin; E78.5 Hyperlipidemia, unspecified; Z23 Encounter for immunization
CPT/HCPCS: 36415; 71010-TC; 71260-TC; 78452-TC; 80053; 80061; 80307; 81003; 82550; 82553; 83036; 83690; 83721; 83735; 83880; 84100; 84484; 85025; 85610; 86850; 86900; 86901; 87086; 90732; 93005; 93010; 93017; 93306-TC; 94640; 99285-25; A9502; G0009; G0378; Q2037

== ENCOUNTER 2019-05-26 10:54 | Emergency (ER) | payer OTHER ==
[2019-05-26 11:06] VITALS: BP 142/92; PULSE 81; TEMP 98.3; BMI 23.3
[2019-05-26] MEDS ORDERED: DEXAMETHASONE LIQUID 0.5 MG/5 ML PO ONE (11:31)
[2019-05-26] MEDS ORDERED: ALBUTEROL SO4 2.5/IPRATROPIUM 0.5 INH SOL 3 ML VIAL.NEB. NEB ONE (11:46)
[2019-05-26] MEDS ORDERED: DEXAMETHASONE SOD PHOSPHATE 10 MG/1 ML VIAL ONE (11:46)
[2019-05-26] MEDS: ALBUTEROL SO4 2.5/IPRATROPIUM 0.5 INH SOL 3 ML VIAL.NEB. NEB SCH ×2 (11:47→12:05)
--- NOTE | 2019-05-26 12:33 | PDOC ---
History of Present Illness - General Chief Complaint: Cold Symptoms Stated Complaint: FEVER/ COUGH Time Seen by Provider: 05/26/19 11:15 - History of Present Illness Initial Comments: 05/26/19 12:30 58-year-old male presents for evaluation of flulike symptoms x2 days Past History - Past Medical History Allergies/Adverse Reactions: Allergies Allergy/AdvReac Type Severity Reaction Status Date / Time No Known Allergies Allergy Verified 08/27/16 03:17 Home Medications: Ambulatory Orders Aspirin [Ecotrin] 81 mg PO WEEKLY 02/26/16 Losartan Potassium [Cozaar -] 50 mg PO DAILY 02/26/16 Albuterol Sulfate Inhaler - [Ventolin HFA Inhaler -] 1 - 2 inh PO PRN 02/27/16 Loratadine [Claritin] 10 mg PO DAILY 05/14/16 Pantoprazole Sodium [Protonix] 40 mg PO DAILY #0 tablet. 05/14/16 Azithromycin [Zithromax -] 250 mg PO UTDICT #6 tab 05/26/19 Asthma: Yes Cardiac Disorders: Yes COPD: No GI Disorders: Yes (ULCERS;H.PYLORY;H/H) HTN: Yes - Immunization History Immunization Up to Date: No - Psycho Social/Smoking Cessation Hx Smoking Status: Yes Smoking History: Former smoker Have you smoked in the past 12 months: No Number of Cigarettes Smoked Daily: 10 Cigars Per Day: 5 Information on smoking cessation initiated: No 'Breaking Loose' booklet given: 08/27/16 Hx Alcohol Use: No Drug/Substance Use Hx: No Substance Use Type: Alcohol Hx Substance Use Treatment: No Review of Systems - Review of Systems Constitutional: Yes: Fever HEENTM: Yes: Nose Congestion Respiratory: Yes: Cough Neurological: Yes: Headache *Physical Exam - Vital Signs Last Vital Signs Temp Pulse Resp BP Pulse Ox 98.3 F 81 16 142/92 98 05/26/19 11:04 05/26/19 11:04 05/26/19 11:04 05/26/19 11:04 05/26/19 11:04 - Physical Exam 05/26/19 12:31 GENERAL: The patient is awake, alert, and fully oriented, in no acute distress. HEAD: Normal with no signs of trauma. EYES: sclera anicteric, conjunctiva clear. ENT: Ears normal tympanic membranes normal oropharynx clear uvula midline NECK: Normal range of motion LUNGS: Bilateral basilar expiratory wheezes and rhonchi. HEART: S1 and S2 without murmur, rub or gallop. ABDOMEN: Soft, nontender, normoactive bowel sounds. No guarding, no rebound. No masses. EXTREMITIES: Normal range of motion, no edema. No clubbing or cyanosis. No cords, erythema, or tenderness. NEUROLOGICAL: Cranial nerves II through XII grossly intact. Normal speech, normal gait. PSYCH: Normal mood, normal affect. SKIN: Warm, Dry, normal turgor, no rashes or lesions noted. 05/26/19 12:32 ED Treatment Course - RADIOLOGY Radiology Studies Ordered: Category Date Time Status CHEST PA & LAT [RAD] Stat Radiology 05/26/19 11:31 Taken - Medications Given in the ED: ED Medications Discontinued Medications Generic Name Dose Route Start Last Admin Trade Name Freq PRN Reason Stop Dose Admin Dexamethasone 10 mg 05/26/19 11:31 05/26/19 11:47 Decadron Liquid - PO 05/26/19 11:32 10 mg ONCE ONE Administration Medical Decision Making - Medical Decision Making 05/26/19 12:31 We will treat with Zithromax for bronchitis 05/26/19 12:32 Cleared with Decadron and DuoNeb's Discharge - Discharge Information Problems reviewed: Yes Clinical Impression/Diagnosis: Bronchitis Condition: Stable Disposition: HOME - Admission No - Follow up/Referral Referrals: Sea Weinberg MD [Staff Physician] - - Patient Discharge Instructions Additional Instructions: Please take the antibiotics as directed. Return to the emergency room for worsening symptoms. Without fail follow-up with your primary care physician in 1 to 2 days for further evaluation and treatment options. - Post Discharge Activity
== END 2019-05-26 12:50 | disposition home or self-care (01) ==
LOC: JERFT 10:54
PROC: 3E0F7GC Introduction of Other Therapeutic Substance into Respiratory Tract, Via Natural or Artificial Opening (ICD-10-PCS; principal; 2019-05-26)
DX: J40 Bronchitis, not specified as acute or chronic (principal)
CPT/HCPCS: 71046-TC-FY; 87804; 94640; 99281-25

== ENCOUNTER 2019-07-12 05:09 | Emergency (ER) | payer OTHER ==
--- NOTE | 2019-07-12 05:11 | PDOC ---
History of Present Illness - General Stated Complaint: FLU-LIKE SYMPTOMS Time Seen by Provider: 07/12/19 05:11 - History of Present Illness Initial Comments: 07/12/19 05:25 Mr. Barrera is a 58 yo male w/ pmh of HTN and asthma who presents for evaluation of 1 week history of congestion with 2 day history of severe cough. Patient reports he has had difficulty sleepy due to his cough despite over the counter medications. Denies any pain however presents as he has not slept in 2 days and feels short of breath. Endorses intermittent subjective fever over the past week as well. The patient denies chest pain, headache and dizziness. Denies chills, nausea, vomit, diarrhea and constipation. Denies dysuria, frequency, urgency and hematuria. Past History - Past Medical History Allergies/Adverse Reactions: Allergies Allergy/AdvReac Type Severity Reaction Status Date / Time No Known Allergies Allergy Verified 07/12/19 05:13 Home Medications: Ambulatory Orders Aspirin [Ecotrin] 81 mg PO WEEKLY 02/26/16 Losartan Potassium [Cozaar -] 50 mg PO DAILY 02/26/16 Albuterol Sulfate Inhaler - [Ventolin HFA Inhaler -] 1 - 2 inh PO PRN 02/27/16 Loratadine [Claritin] 10 mg PO DAILY 05/14/16 Pantoprazole Sodium [Protonix] 40 mg PO DAILY #0 tablet. 05/14/16 Azithromycin [Zithromax -] 250 mg PO UTDICT #6 tab 05/26/19 Asthma: Yes Cardiac Disorders: Yes COPD: No GI Disorders: Yes (ULCERS;H.PYLORY;H/H) HTN: Yes - Immunization History Immunization Up to Date: No - Psycho Social/Smoking Cessation Hx Smoking Status: Yes Smoking History: Former smoker Have you smoked in the past 12 months: No Number of Cigarettes Smoked Daily: 10 Cigars Per Day: 5 'Breaking Loose' booklet given: 08/27/16 Hx Alcohol Use: No Drug/Substance Use Hx: No Substance Use Type: Alcohol Hx Substance Use Treatment: No Review of Systems - Review of Systems Comments:: 07/12/19 05:27 GENERAL/CONSTITUTIONAL: +Intermittent subjective fever. No chills. No weakness. HEAD, EYES, EARS, NOSE AND THROAT: Nasal congestion x1 week. No change in vision. No ear pain or discharge. No sore throat. CARDIOVASCULAR: +SOB as described. No chest pain RESPIRATORY: +Cough as described. GASTROINTESTINAL: No nausea, vomiting, diarrhea or constipation. GENITOURINARY: No dysuria, frequency, or change in urination. MUSCULOSKELETAL: No joint or muscle swelling or pain. No neck or back pain. SKIN: No rash NEUROLOGIC: No headache, vertigo, loss of consciousness, or change in strength/sensation. ENDOCRINE: No increased thirst. No abnormal weight change HEMATOLOGIC/LYMPHATIC: No anemia, easy bleeding, or history of blood clots. ALLERGIC/IMMUNOLOGIC: No hives or skin allergy. *Physical Exam - Physical Exam 07/12/19 05:28 GENERAL: +Patient appears acutely SOB. Awake, alert, and fully oriented HEAD: No signs of trauma, normocephalic, atraumatic EYES: PERRLA, EOMI, sclera anicteric, conjunctiva clear ENT: Auricles normal inspection, hearing grossly normal, nares patent, oropharynx clear without exudates. Moist mucosa NECK: Normal ROM, supple, no lymphadenopathy, JVD, or masses LUNGS: +Lung sounds decreased. Mild wheezes appreciated. HEART: Regular rate and rhythm, normal S1 and S2, no murmurs, rubs or gallops, peripheral pulses normal and equal bilaterally. ABDOMEN: Soft, nontender, normoactive bowel sounds. No guarding, no rebound. No masses EXTREMITIES: Normal inspection, Normal range of motion, no edema. No clubbing or cyanosis. NEUROLOGICAL: Cranial nerves II through XII grossly intact. Normal speech, normal gait, no focal sensorimotor deficits SKIN: Warm, Dry, normal turgor, no rashes or lesions noted. ED Treatment Course - LABORATORY CBC & Chemistry Diagram: 07/12/19 05:10 07/12/19 05:10 Medical Decision Making - Medical Decision Making 07/12/19 05:29 Mr. Barrera is a 58 yo male w/ pmh as described who presents for evaluation of symptoms c/w asthma exacerbation 2/2 viral illness. Patient will be treated with symptomatic medications for asthma exacerbation and evaluated for acute process w/ labs as well as XR and influenza swab. 07/12/19 06:51 Patient exam improved however not normalized. Patient pending flu swab and further clinical improvement. 07/12/19 06:58 Patient signed out to Dr. Tran for further evaluation. Discharge - Discharge Information Problems reviewed: Yes Clinical Impression/Diagnosis: Asthma exacerbation Qualifiers: Asthma severity: moderate Asthma persistence: unspecified Qualified Code(s): J45.901 - Unspecified asthma with (acute) exacerbation Disposition: HOME - Follow up/Referral Referrals: Tiny Damon MD [Primary Care Provider] - - Patient Discharge Instructions Patient Printed Discharge Instructions: DI for Asthma -- Adult Additional Instructions: You were evaluated today in the ER for your symptoms. We performed labs and Xray which were normal. Your symptoms improved following steroids and breathing treatment and we believe you are safe for discharge. Please follow-up with primary care provider later this week for further evaluation. Return to ER if any further exacerbation of cough, fever, chills, or other concerning symptoms. - Post Discharge Activity
[2019-07-12 05:15] VITALS: BMI 23.7
[2019-07-12] MEDS ORDERED: methylPREDNISolone NA SUCC 125 MG/2 ML VIAL IVPB ONE (05:16)
[2019-07-12] MEDS ORDERED: ALBUTEROL SO4 2.5/IPRATROPIUM 0.5 INH SOL 3 ML VIAL.NEB. NEB ONE ×6 (05:17→10:17)
[2019-07-12] MEDS ORDERED: methylPREDNISolone NA SUCC 40 MG/1 ML VIAL ONE (05:17)
[2019-07-12] MEDS: ALBUTEROL SO4 2.5/IPRATROPIUM 0.5 INH SOL 3 ML VIAL.NEB. NEB SCH ×3 (05:24→06:22)
--- NOTE | 2019-07-12 05:33 | PDOC ---
Attending Attestation - Resident Resident Name: Vik Power - ED Attending Attestation I have performed the following: I have examined & evaluated the patient, The case was reviewed & discussed with the resident, I agree w/resident's findings & plan - HPI HPI: 07/12/19 06:42 Mr. Barrera is a 58 yo male w/ pmh of HTN and asthma who presents for evaluation of 1 week history of congestion with 2 day history of severe cough. Patient reports he has had difficulty sleepy due to his cough despite over the counter medications. Denies any pain however presents as he has not slept in 2 days and feels short of breath. Endorses intermittent subjective fever over the past week as well. - Physicial Exam PE: 07/12/19 06:42 Pt has normal exam. Agree with resident exam - Medical Decision Making 07/12/19 06:42 labs normal. Pt is gretting asthma treatments in the ER. We are awaiting flu culture. 07/12/19 06:54 Pt has wheeze; we are waiting for him to improve. Pt will be signed out to the ER AM docs. Heart Score/ECG Review - ECG Intrepretation Rhythm: Regular Rhythm - [place]: Normal - P and NV Delta Wave(s) Present: No WPW: No - QRS Poor R Wave Progression: No Q Wave Present: No - ST and T Early Repolarization: No Non Specific ST-T Wave changes: No Flattened T Waves: No Prolonged Q-T Interval: No - ECG Impressions Normal ECG: Yes Non-specific ST Elevation: No Ischemic Changes: No Torsades connie Pointes: No WPW: No Comment:: 07/12/19 05:34 PVCs
[2019-07-12 05:38] LABS: BASO % 0.9 % (0-2.0); EOS % 9.7 % (0-4.5); HEMATOCRIT 38.3 % (35.4-49); HEMOGLOBIN 13.1 GM/dL (11.7-16.9); LYMPH % 36.5 % (8-40); MCH 29.9 pg (25.7-33.7); MCHC 34.3 g/dl (32.0-35.9); MEAN CELL VOLUME 87.2 fl (80-96); MEAN PLT VOLUME 8.1 fl (7.5-11.1); MONO % 8.4 % (3.8-10.2); NEUT % 44.5 % (42.8-82.8); PLATELET COUNT 223 K/MM3 (134-434); RDW 12.5 % (11.9-15.9)
[2019-07-12 06:07] LABS: ALBUMIN 3.6 g/dl (3.4-5.0); BILIRUBIN,TOTAL 0.8 mg/dL (0.2-1); BLOOD UREA NITROGEN 10.7 mg/dL (7-18); CALCIUM 8.3 mg/dL (8.5-10.1); POTASSIUM 4.1 mmol/L (3.5-5.1); TOT PROT 6.7 g/dl (6.4-8.2)
[2019-07-12] MEDS ORDERED: SODIUM CHLORIDE 1,000 ML IV STA (06:51)
[2019-07-12] MEDS ORDERED: ACETAMINOPHEN 1000 MG/100 ML VIAL (NON FORMULARY) IVPB ONE (06:52)
--- NOTE | 2019-07-12 07:34 | PDOC ---
*Physical Exam - Vital Signs Last Vital Signs Temp Pulse Resp BP Pulse Ox 97.8 F 103 H 20 145/96 100 07/12/19 05:14 07/12/19 05:14 07/12/19 05:14 07/12/19 05:14 07/12/19 06:37 Vital Signs - Vital Signs #1 Time: 10:03 O2 Sat by Pulse Oximetry (%): 98 Oxygen Delivery Method: Room Air ED Treatment Course - LABORATORY CBC & Chemistry Diagram: 07/12/19 05:10 07/12/19 05:10 - ADDITIONAL ORDERS Additional order review: Laboratory Results 07/12/19 05:10 Sodium 139 Potassium 4.1 Chloride 108 H Carbon Dioxide 24 Anion Gap 7 L BUN 10.7 Creatinine 1.0 Est GFR (CKD-EPI)AfAm 94.39 Est GFR (CKD-EPI)NonAf 81.44 Random Glucose 90 Calcium 8.3 L Total Bilirubin 0.8 AST 30 ALT 35 Alkaline Phosphatase 72 Total Protein 6.7 Albumin 3.6 07/12/19 05:10 RBC 4.40 MCV 87.2 MCHC 34.3 RDW 12.5 MPV 8.1 Neutrophils % 44.5 D Lymphocytes % 36.5 Monocytes % 8.4 Eosinophils % 9.7 H D Basophils % 0.9 - Medications Given in the ED: ED Medications Discontinued Medications Generic Name Dose Route Start Last Admin Trade Name Freq PRN Reason Stop Dose Admin Albuterol/Ipratropium 1 amp 07/12/19 05:30 07/12/19 06:22 Duoneb - NEB 07/12/19 06:16 1 amp Q15M TASHA Administration Methylprednisolone Sodium Succinate 60 mg 07/12/19 05:16 07/12/19 05:24 Solu-Medrol - IVPB 07/12/19 05:17 60 mg ONCE ONE Administration Medical Decision Making - Medical Decision Making 07/12/19 07:33 Patient signed out by Dr. Pfeiffer (PGY-3) and Dr. Zamora (Attending) 58 y/o male with presumptive asthma exacerbation 2/2 to recent viral URI S/p Duo Neb, Decadron 10, Influenza pending Patient reassessed @ bedside - NAD, scattered wheezes Will give an additional Duo Neb x2, Reassess. 07/12/19 08:17 S/p 2nd Duo Neb, no appreciable wheezes, SpO2 94% on RA, will give on additional Duo Neb Reassess. 07/12/19 09:32 S/p Duo Neb - patient SpO2 98% on RA Patient to be discharged home with outpatient course of steroids, return precautions, instruction to f/u with PMD. I explained the physical findings, test results and any final diagnoses with the patient. I answered all the patient's questions. The patient felt comfortable with the post discharge plan and will return to the ED with any new/worsening/concerning symptoms. Discharge - Discharge Information Problems reviewed: Yes Clinical Impression/Diagnosis: Asthma exacerbation Qualifiers: Asthma severity: moderate Asthma persistence: unspecified Qualified Code(s): J45.901 - Unspecified asthma with (acute) exacerbation Condition: Good Disposition: HOME - Admission No - Additional Discharge Information Prescriptions: Prednisone [Prednisone 50 MG TABLETS] 50 mg PO DAILY 5 Days #5 tablet Prednisone [Prednisone 50 MG TABLETS] 50 mg PO DAILY #5 tablet - Follow up/Referral Referrals: Tiny Damon MD [Primary Care Provider] - - Patient Discharge Instructions Patient Printed Discharge Instructions: DI for Asthma -- Adult Additional Instructions: You were evaluated today in the ER for your symptoms. We performed labs and Xray which were normal. Your symptoms improved following steroids and breathing treatment and we believe you are safe for discharge. We have sent a prescription to your pharmacy please take the entire course as directed. Please follow-up with primary care provider later this week for further evaluation. Your care is not complete until you are evaluated by your primary care provider. Return to ER if any further exacerbation of cough, fever, chills, or other concerning symptoms. - Post Discharge Activity
[2019-07-12] MEDS ORDERED: ACETAMINOPHEN 500 MG TABLET (FP) PO ONE (08:30)
[2019-07-12] MEDS ORDERED: ACETAMINOPHEN 325 MG TABLET (FP) ONE (08:54)
--- NOTE | 2019-07-12 09:16 | EKG ---
Test Reason : Blood Pressure : / mmHG Vent. Rate : 084 BPM Atrial Rate : 084 BPM P-R Int : 126 ms QRS Dur : 078 ms QT Int : 380 ms P-R-T Axes : 056 -05 038 degrees QTc Int : 449 ms SINUS RHYTHM WITH FREQUENT PREMATURE VENTRICULAR COMPLEXES OTHERWISE NORMAL ECG WHEN COMPARED WITH ECG OF 27-AUG-2016 02:58, NONSPECIFIC T WAVE ABNORMALITY HAS REPLACED INVERTED T WAVES IN INFERIOR LEADS NONSPECIFIC T WAVE ABNORMALITY NO LONGER EVIDENT IN LATERAL LEADS Confirmed by Neeraj Spear ([id number]) on 07/12/2019 9:16:08 AM Referred By: Confirmed By:Neeraj Spear
[2019-07-12 09:28] VITALS: BP 124/77; PULSE 85; TEMP 98.1
== END 2019-07-12 10:31 | disposition home or self-care (01) ==
LOC: JER 05:09
PROC: 3E0F7GC Introduction of Other Therapeutic Substance into Respiratory Tract, Via Natural or Artificial Opening (ICD-10-PCS; principal; 2019-07-12)
PROC: 3E0F7GC Introduction of Other Therapeutic Substance into Respiratory Tract, Via Natural or Artificial Opening (ICD-10-PCS; 2019-07-12)
PROC: 3E0F7GC Introduction of Other Therapeutic Substance into Respiratory Tract, Via Natural or Artificial Opening (ICD-10-PCS; 2019-07-12)
PROC: 3E0F7GC Introduction of Other Therapeutic Substance into Respiratory Tract, Via Natural or Artificial Opening (ICD-10-PCS; 2019-07-12)
DX: J45.901 Unspecified asthma with (acute) exacerbation (principal); I10 Essential (primary) hypertension; Z87.19 Personal history of other diseases of the digestive system
CPT/HCPCS: 36415; 71045-TC-FY; 80053; 85025; 93005; 93010; 94640; 99285-25

== ENCOUNTER 2019-07-22 12:54 | Inpatient (IN) | payer OTHER ==
--- NOTE | 2019-07-22 13:11 | PDOC ---
Rapid Medical Evaluation Time Seen by Provider: 07/22/19 13:04 Medical Evaluation: Allergies Allergy/AdvReac Type Severity Reaction Status Date / Time No Known Allergies Allergy Verified 07/12/19 05:13 07/22/19 13:06 Pt c/o: cough x 1 month, on 2nd abx with min improvement prescribed by PCP verbally, hx asthma, quit smoking 3 months ago pt on brief exam: wilfrido exp wheeze, 97 % RA, vss Pt ordered for : duoneb, prednisone pt to proceed to the ED Discharge Disposition - Diagnosis Asthma - Referrals - Patient Instructions - Post Discharge Activity
[2019-07-22] MEDS ORDERED: ALBUTEROL SO4 2.5/IPRATROPIUM 0.5 INH SOL 3 ML VIAL.NEB. NEB ONE ×4 (15:00→15:42)
[2019-07-22] MEDS ORDERED: predniSONE 20 MG TABLET (UD) PO ONE (15:20)
[2019-07-22] MEDS ORDERED: predniSONE 20 MG TABLET (UD) ONE (15:32)
--- NOTE | 2019-07-22 15:46 | PDOC ---
History of Present Illness - General Chief Complaint: Cold Symptoms Stated Complaint: COUGHING Time Seen by Provider: 07/22/19 13:04 History Source: Patient - History of Present Illness Initial Comments: 07/22/19 15:42 58-year-old male complaining of cough and wheezing. for the last 2 weeks. Patient initially was seen by PCP who was started on azithromycin. Patient was seen in this ER on 07/12/2019 patient was started on prednisone,. Patient was seen by PCP and was started on Levaquin. Patient reports that cough is not getting better with increased wheezing. Denies fever, nausea, vomiting, chest pain. patient unable to sleep due to persistent cough worse at night. no recent travel no exposure to patient with COVID 07/22/19 15:57 Past History - Past Medical History Allergies/Adverse Reactions: Allergies Allergy/AdvReac Type Severity Reaction Status Date / Time No Known Allergies Allergy Verified 07/22/19 13:07 Home Medications: Ambulatory Orders Aspirin [Ecotrin] 81 mg PO WEEKLY 02/26/16 Losartan Potassium [Cozaar -] 50 mg PO DAILY 02/26/16 Albuterol Sulfate Inhaler - [Ventolin HFA Inhaler -] 1 - 2 inh PO PRN 02/27/16 Loratadine [Claritin] 10 mg PO DAILY 05/14/16 Pantoprazole Sodium [Protonix] 40 mg PO DAILY #0 tablet. 05/14/16 Azithromycin [Zithromax -] 250 mg PO UTDICT #6 tab 05/26/19 Prednisone [Prednisone 50 MG TABLETS] 50 mg PO DAILY #5 tablet 07/12/19 Prednisone [Prednisone 50 MG TABLETS] 50 mg PO DAILY 5 Days #5 tablet 07/12/19 Asthma: Yes Cardiac Disorders: Yes COPD: No GI Disorders: Yes (ULCERS;H.PYLORY;H/H) HTN: Yes - Immunization History Immunization Up to Date: No - Psycho Social/Smoking Cessation Hx Smoking Status: Yes Smoking History: Never smoked Have you smoked in the past 12 months: No Number of Cigarettes Smoked Daily: 10 Cigars Per Day: 5 Information on smoking cessation initiated: No 'Breaking Loose' booklet given: 08/27/16 Hx Alcohol Use: No Drug/Substance Use Hx: No Substance Use Type: Alcohol Hx Substance Use Treatment: No Review of Systems - Review of Systems Able to Perform ROS?: Yes Is the patient limited Irish proficient: No Constitutional: No: Symptoms Reported, See HPI, Chills, Diaphoresis, Fever, Loss of Appetite, Malaise, Night Sweats, Weakness, Weight Stable, Unintentional Wgt. Loss, Unexplained wgt Loss, Other Respiratory: Yes: Cough, Shortness of Breath, Wheezing, Productive cough ABD/GI: No: Symptoms Reported, See HPI, Abdominal Distended, Abd. Pain w/ defecation, Blood Streaked Bowels, Constipated, Diarrhea, Difficulty Swallowing, Nausea, Poor Appetite, Poor Fluid Intake, Rectal Bleeding, Vomiting, Indigestion, Abdominal cramping, Tarry Stools, Other *Physical Exam - Vital Signs Last Vital Signs Temp Pulse Resp BP Pulse Ox 98.7 F 82 18 143/98 97 07/22/19 13:09 07/22/19 13:09 07/22/19 13:09 07/22/19 13:09 07/22/19 13:09 - Physical Exam General Appearance: Yes: Appropriately Dressed Respiratory/Chest: positive: Normal Breath Sounds, Rales, Wheezing Cardiovascular: positive: Regular Rhythm, Regular Rate Gastrointestinal/Abdominal: positive: Normal Bowel Sounds, Soft. negative: Tender Integumentary: positive: Normal Color, Dry, Warm Neurologic: positive: Fully Oriented, Alert, Normal Mood/Affect ED Treatment Course - LABORATORY CBC & Chemistry Diagram: 07/22/19 16:00 07/22/19 16:00 - RADIOLOGY Radiology Studies Ordered: Category Date Time Status CHEST PA & LAT [RAD] Stat Radiology 07/22/19 15:00 Ordered - Medications Given in the ED: ED Medications Discontinued Medications Generic Name Dose Route Start Last Admin Trade Name Lawanda PRN Reason Stop Dose Admin Albuterol/Ipratropium 1 amp 07/22/19 15:00 07/22/19 15:07 Duoneb - NEB 07/22/19 15:01 1 amp ONCE ONE Administration Prednisone 60 mg 07/22/19 15:20 07/22/19 15:30 Deltasone - PO 07/22/19 15:21 60 mg ONCE ONE Administration ED Progress Note - Progress Note Progress Note: 07/22/19 18:14 A: asthma exacebration P: duoneb prednisone Medical Decision Making - Medical Decision Making 07/22/19 15:58 increased wheezing after duoneb x2 and prednisone. patient is short of breath. case discussed with Dr. LISA. patient to be transferred to the Main ED. charge nurse Laxmi aware 07/22/19 18:13 Discharge - Discharge Information Problems reviewed: Yes Clinical Impression/Diagnosis: Asthma Qualifiers: Asthma severity: severe Asthma persistence: persistent Asthma complication type: uncomplicated Qualified Code(s): J45.50 - Severe persistent asthma, uncomplicated - Follow up/Referral Referrals: Tiny Damon MD [Primary Care Provider] - - Patient Discharge Instructions - Post Discharge Activity
[2019-07-22] MEDS: MAGNESIUM SULF 50% (8.12 MEQ/2 ML-1 GM VIAL) IVPB ONE ×2 (16:25→16:58)
[2019-07-22] MEDS ORDERED: MAGNESIUM 1GM/D5W - 2 GM/200 ML IVPB IVPB ONE (16:28)
--- NOTE | 2019-07-22 17:00 | PDOC ---
History of Present Illness - General Chief Complaint: Cold Symptoms Stated Complaint: COUGHING Time Seen by Provider: 07/22/19 13:04 Past History - Past Medical History Allergies/Adverse Reactions: Allergies Allergy/AdvReac Type Severity Reaction Status Date / Time No Known Allergies Allergy Verified 07/22/19 13:07 Home Medications: Ambulatory Orders Aspirin [Ecotrin] 81 mg PO WEEKLY 02/26/16 Losartan Potassium [Cozaar -] 50 mg PO DAILY 02/26/16 Albuterol Sulfate Inhaler - [Ventolin HFA Inhaler -] 1 - 2 inh PO PRN 02/27/16 Loratadine [Claritin] 10 mg PO DAILY 05/14/16 Pantoprazole Sodium [Protonix] 40 mg PO DAILY #0 tablet. 05/14/16 Azithromycin [Zithromax -] 250 mg PO UTDICT #6 tab 05/26/19 Prednisone [Prednisone 50 MG TABLETS] 50 mg PO DAILY #5 tablet 07/12/19 Prednisone [Prednisone 50 MG TABLETS] 50 mg PO DAILY 5 Days #5 tablet 07/12/19 Asthma: Yes Cardiac Disorders: Yes COPD: No GI Disorders: Yes (ULCERS;H.PYLORY;H/H) HTN: Yes - Immunization History Immunization Up to Date: No - Psycho Social/Smoking Cessation Hx Smoking Status: Yes Smoking History: Never smoked Have you smoked in the past 12 months: No Number of Cigarettes Smoked Daily: 10 Cigars Per Day: 5 Information on smoking cessation initiated: No 'Breaking Loose' booklet given: 08/27/16 Hx Alcohol Use: No Drug/Substance Use Hx: No Substance Use Type: Alcohol Hx Substance Use Treatment: No Review of Systems - Review of Systems Is the patient limited Kinyarwanda proficient: No *Physical Exam - Vital Signs Last Vital Signs Temp Pulse Resp BP Pulse Ox 98.7 F 82 18 143/98 97 07/22/19 13:09 07/22/19 13:09 07/22/19 13:09 07/22/19 13:09 07/22/19 13:09 ED Treatment Course - Medications Given in the ED: ED Medications Discontinued Medications Generic Name Dose Route Start Last Admin Trade Name Freq PRN Reason Stop Dose Admin Albuterol/Ipratropium 1 amp 07/22/19 15:00 07/22/19 15:07 Duoneb - NEB 07/22/19 15:01 1 amp ONCE ONE Administration Albuterol/Ipratropium 1 amp 07/22/19 15:41 07/22/19 15:46 Duoneb - NEB 07/22/19 15:42 1 amp ONCE ONE Administration Magnesium Sulfate 2 gm 07/22/19 16:02 07/22/19 16:58 Magnesium Sulfate IVPB 07/22/19 16:03 2 gm ONCE ONE Administration Prednisone 60 mg 07/22/19 15:20 07/22/19 15:30 Deltasone - PO 07/22/19 15:21 60 mg ONCE ONE Administration Discharge - Discharge Information Clinical Impression/Diagnosis: Asthma Qualifiers: Asthma severity: severe Asthma persistence: persistent Asthma complication type: uncomplicated Qualified Code(s): J45.50 - Severe persistent asthma, uncomplicated - Follow up/Referral Referrals: Tiny Damon MD [Primary Care Provider] - - Patient Discharge Instructions - Post Discharge Activity
--- NOTE | 2019-07-22 17:08 | PDOC ---
*Physical Exam - Vital Signs Last Vital Signs Temp Pulse Resp BP Pulse Ox 98.7 F 82 18 143/98 97 07/22/19 13:09 07/22/19 13:09 07/22/19 13:09 07/22/19 13:09 07/22/19 13:09 ED Treatment Course - LABORATORY CBC & Chemistry Diagram: 07/23/19 07:46 07/23/19 07:46 - Medications Given in the ED: ED Medications Discontinued Medications Generic Name Dose Route Start Last Admin Trade Name Lawanda PRN Reason Stop Dose Admin Albuterol/Ipratropium 1 amp 07/22/19 15:00 07/22/19 15:07 Duoneb - NEB 07/22/19 15:01 1 amp ONCE ONE Administration Albuterol/Ipratropium 1 amp 07/22/19 15:41 07/22/19 15:46 Duoneb - NEB 07/22/19 15:42 1 amp ONCE ONE Administration Magnesium Sulfate 2 gm 07/22/19 16:02 07/22/19 16:58 Magnesium Sulfate IVPB 07/22/19 16:03 2 gm ONCE ONE Administration Prednisone 60 mg 07/22/19 15:20 07/22/19 15:30 Deltasone - PO 07/22/19 15:21 60 mg ONCE ONE Administration Medical Decision Making - Medical Decision Making 07/22/19 17:07 Patient received from [facility] with ongoing wheezing despite Duonebs. Patient getting steroids and magnesium as well. Reports in the ER he feels better, but still having ongoing symptoms. Mild diffuse expiratory wheezing. Patient states that he has been seen in the ER 3 times this month, most recently July 12, 2019. Futhermore, has received azithromycin 250 mg course last week, and Levaquin course today, without any symptomatic relief. Further reports that he has not been on any home medications at all, and he is not sure why. Reports having asthma from childhood, however, it appears to have worsened over the past 5 years. Smoked 5 cigarettes a day for 6 years, but quit 3 months ago. No other complaints besides SOB and CONCEPCION. Will follow up labs, response to magnesium and steroids, dispo accordingly. CXR without acute abnormality. EKG sinus at 91 bpm, occasional PVCs, left axis deviation, SC 130, QRS 80, QTc 442 Patient with ongoing wheezing despite multiple treatment attempts, will admit f or asthma exacerbation. Discharge - Discharge Information Problems reviewed: Yes Clinical Impression/Diagnosis: Asthma Qualifiers: Asthma severity: severe Asthma persistence: persistent Asthma complication type: uncomplicated Qualified Code(s): J45.50 - Severe persistent asthma, uncomplicated Condition: Improved Disposition: HOME - Follow up/Referral - Patient Discharge Instructions - Post Discharge Activity
[2019-07-22 17:17] LABS: BASO % 0.5 % (0-2.0); EOS % 6.5 % (0-4.5); HEMATOCRIT 41.1 % (35.4-49); HEMOGLOBIN 13.6 GM/dL (11.7-16.9); LYMPH % 31.9 % (8-40); MCH 29.7 pg (25.7-33.7); MCHC 33.1 g/dl (32.0-35.9); MEAN CELL VOLUME 89.8 fl (80-96); MEAN PLT VOLUME 8.2 fl (7.5-11.1); MONO % 6.9 % (3.8-10.2); NEUT % 54.2 % (42.8-82.8); PLATELET COUNT 271 K/MM3 (134-434); RBC 4.58 M/mm3 (4.00-5.60); RDW 12.7 % (11.9-15.9); WHITE BLOOD COUNT 11.6 K/mm3 (4.0-10.0)
[2019-07-22] MEDS ORDERED: ALBUTEROL SO4 0.083% IH SOL 2.5 MG/3 ML VIAL.NEB. NEB ONE (17:24)
[2019-07-22 17:47] LABS: ALBUMIN 3.7 g/dl (3.4-5.0); ALK PHOS 71 U/L (45-117); ANION GAP 9 MMOL/L (8-16); BILIRUBIN,TOTAL 0.5 mg/dL (0.2-1); BLOOD UREA NITROGEN 10.6 mg/dL (7-18); CALCIUM 8.7 mg/dL (8.5-10.1); CHLORIDE 108 mmol/L (98-107); CO2 27 mmol/L (21-32); GLUCOSE,RANDOM 114 mg/dL (74-106); MAGNESIUM 1.9 mg/dL (1.8-2.4); N-TERMINAL BNP 41.1 pg/ml (5-125); POTASSIUM 4.1 mmol/L (3.5-5.1); SGOT/AST 22 U/L (15-37); SGPT/ALT 32 U/L (13-61); SODIUM 143 mmol/L (136-145)
[2019-07-22] MEDS ORDERED: SODIUM CHLORIDE 1,000 ML IV STA (17:52)
--- NOTE | 2019-07-22 18:03 | PDOC ---
Documentation entered by Katty Anthony SCRIBE, acting as scribe for Phoebe Mccarty DO. Phoebe Mccarty DO: This documentation has been prepared by the koriibjeovany, Katty Anthony SCRIBE, under my direction and personally reviewed by me in its entirety. I confirm that the documentation accurately reflects all work, treatment, procedures, and medical decision making performed by me. *Physical Exam - Vital Signs Last Vital Signs Temp Pulse Resp BP Pulse Ox 98.7 F 82 18 143/98 97 07/22/19 13:09 07/22/19 13:09 07/22/19 13:09 07/22/19 13:09 07/22/19 13:09 ED Treatment Course - LABORATORY CBC & Chemistry Diagram: 07/22/19 16:00 07/22/19 16:00 - ADDITIONAL ORDERS Additional order review: Laboratory Results 07/22/19 16:00 Sodium 143 Potassium 4.1 Chloride 108 H Carbon Dioxide 27 Anion Gap 9 BUN 10.6 Creatinine 1.0 Est GFR (CKD-EPI)AfAm 94.39 Est GFR (CKD-EPI)NonAf 81.44 Random Glucose 114 H Calcium 8.7 Magnesium 1.9 Total Bilirubin 0.5 AST 22 ALT 32 Alkaline Phosphatase 71 Troponin I < 0.02 B-Natriuretic Peptide 41.1 Total Protein 7.0 Albumin 3.7 07/22/19 16:00 RBC 4.58 MCV 89.8 MCHC 33.1 RDW 12.7 MPV 8.2 Neutrophils % 54.2 D Lymphocytes % 31.9 Monocytes % 6.9 Eosinophils % 6.5 H Basophils % 0.5 - Medications Given in the ED: ED Medications Discontinued Medications Generic Name Dose Route Start Last Admin Trade Name Freq PRN Reason Stop Dose Admin Albuterol Sulfate 1 amp 07/22/19 17:24 07/22/19 17:46 Ventolin 0.083% Nebulizer Soln - NEB 07/22/19 17:25 1 amp ONCE ONE Administration Albuterol/Ipratropium 1 amp 07/22/19 15:00 07/22/19 15:07 Duoneb - NEB 07/22/19 15:01 1 amp ONCE ONE Administration Albuterol/Ipratropium 1 amp 07/22/19 15:41 07/22/19 15:46 Duoneb - NEB 07/22/19 15:42 1 amp ONCE ONE Administration Magnesium Sulfate 2 gm 07/22/19 16:02 07/22/19 16:58 Magnesium Sulfate IVPB 07/22/19 16:03 2 gm ONCE ONE Administration Prednisone 60 mg 07/22/19 15:20 07/22/19 15:30 Deltasone - PO 07/22/19 15:21 60 mg ONCE ONE Administration Medical Decision Making - Medical Decision Making 07/22/19 18:00 a/p: 58yo male with asthma with cough/sob x 1 m -has been seen in the Er and has had steroids about 6 days ago -pt has been on azithromycin and is currently on levaquin without improvement -pt upgraded from [facility] for eval of asthma that has failed outpt therapy -pt with wheezing, coarse bs -on nebs, mag ordered, prednisone given -pt will need admission -pmd dr. sterling casarez -will [employer] for admission 07/22/19 18:14 pt has been admitted to Dr. Jane for asthma exacerbation Discharge - Discharge Information Problems reviewed: Yes Clinical Impression/Diagnosis: Asthma Qualifiers: Asthma severity: severe Asthma persistence: persistent Asthma complication type: uncomplicated Qualified Code(s): J45.50 - Severe persistent asthma, uncomplicated - Admission Yes - Follow up/Referral Referrals: Tiny Casarez MD [Primary Care Provider] - - Patient Discharge Instructions - Post Discharge Activity
--- NOTE | 2019-07-22 19:20 | PN ---
Teaching Attending Note Name of Resident: Shaun Merrill ATTENDING PHYSICIAN STATEMENT I saw and evaluated the patient. I reviewed the resident's note and discussed the case with the resident. I agree with the resident's findings and plan as documented. SUBJECTIVE: Patient is a 58-year-old man with a PMH of Asthma, HTN and PUD complaining of cough and wheezing for 2 weeks. Patient was initially seen by his PCP and was started on Azithromycin. Then patient was seen in this ER on 07/12/2019 and was started on Prednisone,. Patient was seen by PCP and was started on Levaquin. Patient reports that cough is not getting better with increased wheezing. Denies fever, nausea, vomiting, chest pain, abdominal pain, headache, diarrhea or dysuria. Patient unable to sleep due to persistent cough worse at night. No recent travel no exposure to patient with COVID. Denies alcohol, tobacco or illicit drug use. No sick contacts or recent travels. OBJECTIVE: Alert Vital Signs Period Temp Pulse Resp BP Sys/Meier Pulse Ox Last 24 Hr 98.7 F 82 18 143/98 97 HEENT: No Jaundice, eye redness or discharge, PERRLA, EOMI. Normocephalic, atraumatic. External ears are normal and hearing is grossly intact. No nasal discharge. Neck: Supple, nontender. No palpable adenopathy or thyromegaly. No JVD Chest: Good effort. Clear to auscultation and percussion. Heart: Regular. No S3, rub or murmur Abdomen: Not distended, soft, nontender and no HSM. No rebound or guarding. Normal bowel sounds. Ext: Peripheral pulses intact. No leg edema. Skin: Warm and dry. No petechiae, rash or ecchymosis. Neuro: Alert. Oriented x3. CN 2-12 grossly intact. Sensation grossly intact in all four extremities and DTR are symmetric. Psych: Appropriate mood and affect. Good insight. Home Medications Medication Instructions Recorded Aspirin [Ecotrin] 81 mg PO WEEKLY 02/26/16 Losartan Potassium [Cozaar -] 50 mg PO DAILY 02/26/16 Albuterol Sulfate Inhaler - 1 - 2 inh PO PRN 02/27/16 [Ventolin HFA Inhaler -] Loratadine [Claritin] 10 mg PO DAILY 05/14/16 Pantoprazole Sodium [Protonix] 40 mg PO DAILY #0 tablet. 05/14/16 Azithromycin [Zithromax -] 250 mg PO UTDICT #6 tab 05/26/19 Prednisone [Prednisone 50 MG 50 mg PO DAILY #5 tablet 07/12/19 TABLETS] Prednisone [Prednisone 50 MG 50 mg PO DAILY 5 Days #5 tablet 07/12/19 TABLETS] Abnormal Lab Results 07/22/19 07/22/19 16:00 16:00 WBC 11.6 H Eosinophils % 6.5 H Chloride 108 H Random Glucose 114 H ASSESSMENT AND PLAN: 1. Asthma exacerbation - No acute abnormality on CXR. Got Duoneb, MgSO4 and IV NS in the ER. Will send sputum culture, Respiratory virus panel and urine for Legionella antigen. Treat with Solumedrol, Duoneb, Symbicort, Singulair and IV Azithromycin. Consult Pulmonary. EKG shows NSR at 91/minute, LAE and LAD. Will continue comprehensive care for all of patients comorbid conditions. 2. Hypertension - Restart suitable outpatient antihypertensive drugs when clinically appropriate. 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 Nonpharmacologic measures to control hypertension like weight loss, salt restriction and exercise discussed. Importance of adherence to treatment regimen and attainment of normotension emphasized. 3. DVT prophylaxis - Lovenox 40 mg SQ q 24 hours. 4. Advance directives - Full code
--- NOTE | 2019-07-22 19:21 | HP ---
CHIEF COMPLAINT: SOB with chest tightness PCP: [facility] HISTORY OF PRESENT ILLNESS: 58M w/ pmh HTN, chronic lower back pain, asthma, former tobacco user presents w/ complaint of increased SOB with chest tightness over 2weeks. Was seen in the ED ~2weeks prior for SOB with chest tightness and sent home with prednisone 50mg x5d. Pt followed up with his PCP and received Azithromycin. Did not have resolution of symptoms so PCP then prescribed Levofloxacin. Pt complains about chest tightness, cough w/ beige sputum. Yesterday, used his Albuterol inhaler 20-25times. Has been using a symbicort inhaler in the past year, but is intermittently compliant bc he doesn't believe it helps. Denies fever, chills. has had a similar nonproductive x1week. No history of asthma exacerbation admissions or intubations. 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 Worked in [employer]. Has had birds x10ys. Stopped smoking 3mo prior, after persistent counseling by PCP. ER course was notable for: (1) CXR w/ neg path (2) prednisone 60m, duoneb x2amp, albuterol x1amp, MgSO4 2g (3) NS x1L Recent Travel: mostly stays home PAST MEDICAL HISTORY: HTN, chronic lower back pain, asthma, former tobacco user PAST SURGICAL HISTORY: open appendectomy b/l neck masses(pediatric surgery) Social History: Smoking: smoked 10ys(5cigs daily); stopped 3mo prior Alcohol: ~ 1 beer daily Drugs: denies Allergies No Known Allergies Allergy (Verified 07/22/19 13:07) HOME MEDICATIONS: Home Medications Medication Instructions Recorded Aspirin [Ecotrin] 81 mg PO WEEKLY 02/26/16 Losartan Potassium [Cozaar -] 50 mg PO DAILY 02/26/16 Albuterol Sulfate Inhaler - 1 - 2 inh PO PRN 02/27/16 [Ventolin HFA Inhaler -] Loratadine [Claritin] 10 mg PO DAILY 05/14/16 Pantoprazole Sodium [Protonix] 40 mg PO DAILY #0 tablet. 05/14/16 Azithromycin [Zithromax -] 250 mg PO UTDICT #6 tab 05/26/19 Prednisone [Prednisone 50 MG 50 mg PO DAILY #5 tablet 07/12/19 TABLETS] Prednisone [Prednisone 50 MG 50 mg PO DAILY 5 Days #5 tablet 07/12/19 TABLETS] REVIEW OF SYSTEMS CONSTITUTIONAL: Absent: fever, chills, diaphoresis, generalized weakness, malaise, loss of appetite, weight change HEENT: Absent: rhinorrhea, nasal congestion, throat pain, throat swelling, difficulty swallowing, mouth swelling, ear pain, eye pain, visual changes CARDIOVASCULAR: Absent: chest pain, syncope, palpitations, irregular heart rate, lightheadedness, peripheral edema RESPIRATORY: SOB, wheezing, chest tightness Absent: cough, dyspnea with exertion, orthopnea, stridor, hemoptysis GASTROINTESTINAL: Absent: abdominal pain, abdominal distension, nausea, vomiting, diarrhea, constipation, melena, hematochezia GENITOURINARY: Absent: dysuria, frequency, urgency, hesitancy, hematuria, flank pain, genital pain MUSCULOSKELETAL: Absent: myalgia, arthralgia, joint swelling, back pain, neck pain SKIN: Absent: rash, itching, pallor HEMATOLOGIC/IMMUNOLOGIC: Absent: easy bleeding, easy bruising, lymphadenopathy, frequent infections ENDOCRINE: Absent: unexplained weight gain, unexplained weight loss, heat intolerance, cold intolerance NEUROLOGIC: Absent: headache, focal weakness or paresthesias, dizziness, unsteady gait, seizure, mental status changes, bladder or bowel incontinence PHYSICAL EXAMINATION Vital Signs - 24 hr 07/22/19 13:09 Temperature 98.7 F Pulse Rate 82 Respiratory 18 Rate Blood Pressure 143/98 O2 Sat by Pulse 97 Oximetry (%) GENERAL: Awake, alert, and fully oriented, in no acute distress. HEAD: NC/AT EYES: Extraocular movements intact, sclera anicteric, conjunctiva clear and w/o pallor. No lid lag. EARS, NOSE, THROAT: Ears normal, nares patent w/o rhinorrhea, oropharynx clear without exudates. Moist mucous membranes. NECK: Normal range of motion, supple without lymphadenopathy, JVD, or masses. Left-sided surgical scar LUNGS: diffuse B/l expiratory wheezes. No crackles. No accessory muscle use. Speaking full sentences. On RA HEART: Regular rate and rhythm, normal S1 and S2 without murmur, rub or gallop. ABDOMEN: Soft, nontender, not distended, no guarding, no rebound. MUSCULOSKELETAL: Normal range of motion at all joints. No bony deformities or tenderness. No CVA tenderness. UPPER EXTREMITIES: 2+ pulses, warm, well-perfused. No cyanosis. No clubbing. No peripheral edema. LOWER EXTREMITIES: 2+ pulses, warm, well-perfused. No calf tenderness. No peripheral edema. NEUROLOGICAL: Normal speech. PSYCHIATRIC: Cooperative. Good eye contact. Appropriate mood and affect. SKIN: Warm, dry, normal turgor, no rashes or lesions noted, normal capillary refill. Laboratory Results - last 24 hr 07/22/19 07/22/19 16:00 16:00 WBC 11.6 H RBC 4.58 Hgb 13.6 Hct 41.1 MCV 89.8 MCH 29.7 MCHC 33.1 RDW 12.7 Plt Count 271 D MPV 8.2 Absolute Neuts (auto) 6.3 Neutrophils % 54.2 D Lymphocytes % 31.9 Monocytes % 6.9 Eosinophils % 6.5 H Basophils % 0.5 Nucleated RBC % 0 Sodium 143 Potassium 4.1 Chloride 108 H Carbon Dioxide 27 Anion Gap 9 BUN 10.6 Creatinine 1.0 Est GFR (CKD-EPI)AfAm 94.39 Est GFR (CKD-EPI)NonAf 81.44 Random Glucose 114 H Calcium 8.7 Magnesium 1.9 Total Bilirubin 0.5 AST 22 ALT 32 Alkaline Phosphatase 71 Troponin I < 0.02 B-Natriuretic Peptide 41.1 Total Protein 7.0 Albumin 3.7 ASSESSMENT/PLAN: 58M w/ pmh HTN, chronic lower back pain, asthma, former tobacco user presents w/ complaint of increased SOB with chest tightness. [facility] # Asthma Excerbation - ED: s/p prednisone 60mg, duoneb x2amp, albuterol x1amp, MgSO4 2g > CXR(07/22/19): neg acute path > influenz: neg > Resp Viral panel --pending > Urine Ag --pending - solumedrol 40mg q6h - BDs: duoneb akbar, albuterol PRN - abx: azithromycin - maintain tobacco cessation # chronic HTN --currently normotensive - will restart home meds once med-rec'd FEN - no IVF - salt-restricted diet PPX - DVT PPX: lovenox Family Medical History Family Hx Diabetes: Father (paternal neice with DM) Visit type - Emergency Visit Emergency Visit: Yes ED Registration Date: 07/22/19 Care time: The patient presented to the Emergency Department on the above date and was hospitalized for further evaluation of their emergent condition. - New Patient This patient is new to me today: Yes Date on this admission: 07/23/19 - Critical Care Critical Care patient: No ATTENDING PHYSICIAN STATEMENT I saw and evaluated the patient. I reviewed the resident's note and discussed the case with the resident. I agree with the resident's findings and plan as documented. SUBJECTIVE: OBJECTIVE: ASSESSMENT AND PLAN:
[2019-07-22] MEDS ORDERED: ALBUTEROL SO4 0.083% IH SOL 2.5 MG/3 ML VIAL.NEB. NEB PRN (21:23)
[2019-07-22] MEDS ORDERED: INSULIN SLIDING SCALE (NOVOLOG) 1 VIAL SQ SCH (22:00)
[2019-07-22] MEDS ORDERED: AZITHROMYCIN IVPB 500 MG/250 ML BAG IVPB ONE (22:30)
[2019-07-22] MEDS: methylPREDNISolone NA SUCC 125 MG/2 ML VIAL IVPB SCH (23:09)
[2019-07-22] MEDS: INSULIN SLIDING SCALE (NOVOLOG) 1 VIAL SQ SCH (23:10)
[2019-07-22] MEDS: BUDESONIDE/FORMETEROL FUMARATE 80/4.5 mcg INHALER IH SCH (23:11)
[2019-07-22] MEDS: ALBUTEROL SO4 2.5/IPRATROPIUM 0.5 INH SOL 3 ML VIAL.NEB. NEB SCH (23:38)
[2019-07-23 01:59] VITALS: BMI 25.2
[2019-07-23] MEDS: methylPREDNISolone NA SUCC 125 MG/2 ML VIAL IVPB SCH ×2 (03:38→11:47)
[2019-07-23] MEDS: INSULIN SLIDING SCALE (NOVOLOG) 1 VIAL SQ SCH ×2 (06:43→12:19)
[2019-07-23] MEDS ORDERED: INSULIN (NOVOLOG) ASPART 100 UNITS/ML 10ML VIAL ONE (06:48)
[2019-07-23] MEDS: ALBUTEROL SO4 2.5/IPRATROPIUM 0.5 INH SOL 3 ML VIAL.NEB. NEB SCH ×2 (08:00→12:11)
[2019-07-23 08:39] LABS: HEMATOCRIT 39.9 % (35.4-49); HEMOGLOBIN 13.3 GM/dL (11.7-16.9); MCH 29.5 pg (25.7-33.7); MCHC 33.4 g/dl (32.0-35.9); MEAN CELL VOLUME 88.3 fl (80-96); MEAN PLT VOLUME 8.5 fl (7.5-11.1); PLATELET COUNT 264 K/MM3 (134-434); RBC 4.53 M/mm3 (4.00-5.60); WHITE BLOOD COUNT 10.3 K/mm3 (4.0-10.0)
[2019-07-23 09:01] LABS: BLOOD UREA NITROGEN 10.7 mg/dL (7-18); CALCIUM 8.6 mg/dL (8.5-10.1); CREATININE 0.9 mg/dL (0.55-1.3); MAGNESIUM 2.1 mg/dL (1.8-2.4); POTASSIUM 4.4 mmol/L (3.5-5.1)
[2019-07-23] MEDS ORDERED: LOSARTAN POTASSIUM 50 MG TABLET (FP) PO SCH (10:00)
[2019-07-23] MEDS ORDERED: ENOXAPARIN NA (PORCINE) 40 MG/0.4 ML DISP.SYRIN SQ SCH (10:00)
[2019-07-23] MEDS ORDERED: AZITHROMYCIN IVPB 250 MG in DEXTROSE 5%-WATER - 250 ML IVPB SCH (10:00)
[2019-07-23] MEDS ORDERED: predniSONE 20 MG TABLET (UD) PO ONE (10:13)
[2019-07-23] MEDS ORDERED: PT OWN MED DRAWER 7, Y5N ONE (10:25)
--- NOTE | 2019-07-23 10:49 | EKG ---
Test Reason : Blood Pressure : / mmHG Vent. Rate : 091 BPM Atrial Rate : 091 BPM P-R Int : 130 ms QRS Dur : 080 ms QT Int : 360 ms P-R-T Axes : 042 -35 026 degrees QTc Int : 442 ms SINUS RHYTHM WITH OCCASIONAL PREMATURE VENTRICULAR COMPLEXES POSSIBLE LEFT ATRIAL ENLARGEMENT LEFT AXIS DEVIATION CANNOT RULE OUT INFERIOR INFARCT , AGE UNDETERMINED WHEN COMPARED WITH ECG OF 12-JUL-2019 05:29, QRS AXIS SHIFTED LEFT Confirmed by CARMEN MUNOZ MD ([id number]) on 07/23/2019 10:48:43 AM Referred By: Confirmed By:CARMEN MUNOZ MD
[2019-07-23] MEDS: BUDESONIDE/FORMETEROL FUMARATE 80/4.5 mcg INHALER IH SCH (11:42)
[2019-07-23] MEDS ORDERED: ACETAMINOPHEN 325 MG TABLET (FP) PO PRN (12:59)
--- NOTE | 2019-07-23 14:48 | PN ---
Teaching Attending Note Name of Resident: German Reece ATTENDING PHYSICIAN STATEMENT I saw and evaluated the patient. I reviewed the resident's note and discussed the case with the resident. I agree with the resident's findings and plan as documented. SUBJECTIVE: Feeling much improved, no further SOB. No cough/sputum/hemoptysis. No fever/chills. OBJECTIVE: Afebrile, Hemodynamically Stable Last Vital Signs Temp Pulse Resp BP Pulse Ox 98.6 F 89 18 110/84 95 07/23/19 11:44 07/23/19 11:44 07/23/19 11:44 07/23/19 11:44 07/23/19 09:00 HEENT - Atraumatic Normocephalic. Heart - S1, S2, RRR Lungs - clear to auscultation Abdomen - Soft, non-tender. Bowel Sounds normal. Extremities - no edema, no calf tenderness. Neuro - AAO x 3. Tone/Power normal all extremities. Laboratory Results - last 24 hr 07/22/19 07/22/19 07/22/19 16:00 16:00 21:10 WBC 11.6 H RBC 4.58 Hgb 13.6 Hct 41.1 MCV 89.8 MCH 29.7 MCHC 33.1 RDW 12.7 Plt Count 271 D MPV 8.2 Absolute Neuts (auto) 6.3 Neutrophils % 54.2 D Lymphocytes % 31.9 Monocytes % 6.9 Eosinophils % 6.5 H Basophils % 0.5 Nucleated RBC % 0 Sodium 143 Potassium 4.1 Chloride 108 H Carbon Dioxide 27 Anion Gap 9 BUN 10.6 Creatinine 1.0 Est GFR (CKD-EPI)AfAm 94.39 Est GFR (CKD-EPI)NonAf 81.44 POC Glucometer Random Glucose 114 H Calcium 8.7 Magnesium 1.9 Total Bilirubin 0.5 AST 22 ALT 32 Alkaline Phosphatase 71 Troponin I < 0.02 B-Natriuretic Peptide 41.1 Total Protein 7.0 Albumin 3.7 Influenza A (Rapid) Negative Influenza B (Rapid) Negative 07/22/19 07/23/19 07/23/19 22:56 05:59 07:46 WBC 10.3 H RBC 4.53 Hgb 13.3 Hct 39.9 MCV 88.3 MCH 29.5 MCHC 33.4 RDW 13.0 Plt Count 264 MPV 8.5 Absolute Neuts (auto) Neutrophils % Lymphocytes % Monocytes % Eosinophils % Basophils % Nucleated RBC % Sodium Potassium Chloride Carbon Dioxide Anion Gap BUN Creatinine Est GFR (CKD-EPI)AfAm Est GFR (CKD-EPI)NonAf POC Glucometer 213 151 Random Glucose Calcium Magnesium Total Bilirubin AST ALT Alkaline Phosphatase Troponin I B-Natriuretic Peptide Total Protein Albumin Influenza A (Rapid) Influenza B (Rapid) 07/23/19 07/23/19 07:46 12:17 WBC RBC Hgb Hct MCV MCH MCHC RDW Plt Count MPV Absolute Neuts (auto) Neutrophils % Lymphocytes % Monocytes % Eosinophils % Basophils % Nucleated RBC % Sodium 140 Potassium 4.4 Chloride 108 H Carbon Dioxide 23 Anion Gap 9 BUN 10.7 Creatinine 0.9 Est GFR (CKD-EPI)AfAm 107.22 Est GFR (CKD-EPI)NonAf 92.51 POC Glucometer 146 Random Glucose 136 H Calcium 8.6 Magnesium 2.1 Total Bilirubin AST ALT Alkaline Phosphatase Troponin I B-Natriuretic Peptide Total Protein Albumin Influenza A (Rapid) Influenza B (Rapid) Home Medications Medication Instructions Recorded Losartan Potassium [Cozaar -] 50 mg PO DAILY 02/26/16 Loratadine [Claritin] 10 mg PO DAILY 05/14/16 Albuterol 0.083% Nebulizer Emmy 1 neb NEB Q4H PRN #30 vial 07/23/19 [Ventolin 0.083% Nebulizer Soln -] Albuterol Sulfate Inhaler - 1 - 2 inh PO PRN #1 inhaler 07/23/19 [Ventolin HFA Inhaler -] Atorvastatin Ca [Lipitor] 40 mg PO DAILY 07/23/19 Azithromycin 250 mg PO DAILY #4 tablet 07/23/19 Miscellaneous Medical Supply 1 each ASDIR #1 [facility] [place] 07/23/19 [Outpatient Order] predniSONE [Deltasone -] 40 mg PO DAILY #8 tablet 07/23/19 ASSESSMENT AND PLAN: 58 year old male with HTN, HLD, Asthma, ex-smoker, chronic lower back pain, presents with increasing SOB, admitted with acute asthma exacerbation. 1. Acute Asthma Exacerbation CXR - no acute cardiopulmonary findings. Flu negative Improved with IV Solumedrol, DuoNebs, Azithromycin. SpO2 95% on RA Medically optimized for discharge on 4 additional days of Prednisone, Azithromycin, Bronchodilator Nebs. 2. HTN - resumed on home med Losartan. 3. HLD - continue Statin Medically optimized for discharge with Pulmonary follow up.
[2019-07-23 15:55] VITALS: BP 135/85; PULSE 107; TEMP 98.7
--- NOTE | 2019-07-23 17:10 | DS ---
Physical Exam: SUBJECTIVE: Patient seen and examined at bedside. Endorses feeling well. Denies shortness of breath. OBJECTIVE: Vital Signs Period Temp Pulse Resp BP Sys/Meier Pulse Ox Last 24 Hr 98 F-98.7 F 80-107 18-20 110-155/74-96 95-98 PHYSICAL EXAM GENERAL: The patient is awake, alert, and fully oriented, in no acute distress. HEAD: Normal with no signs of trauma. EYES: PERRL, extraocular movements intact, sclera anicteric, conjunctiva clear. ENT: MMM. NECK: Trachea midline, full range of motion, supple. LUNGS: Clear. No wheezing appreciated. Good inspiratory effort HEART: RRR S1S2 ABDOMEN: Soft, NTND EXTREMITIES: No CCE NEUROLOGICAL: Cranial nerves II through XII grossly intact. PSYCH: Normal mood, normal affect. SKIN: Warm, dry, normal turgor, no rashes or lesions noted. LABS Laboratory Results - last 24 hr 07/22/19 07/22/19 07/22/19 16:00 16:00 21:10 WBC 11.6 H RBC 4.58 Hgb 13.6 Hct 41.1 MCV 89.8 MCH 29.7 MCHC 33.1 RDW 12.7 Plt Count 271 D MPV 8.2 Absolute Neuts (auto) 6.3 Neutrophils % 54.2 D Lymphocytes % 31.9 Monocytes % 6.9 Eosinophils % 6.5 H Basophils % 0.5 Nucleated RBC % 0 Sodium 143 Potassium 4.1 Chloride 108 H Carbon Dioxide 27 Anion Gap 9 BUN 10.6 Creatinine 1.0 Est GFR (CKD-EPI)AfAm 94.39 Est GFR (CKD-EPI)NonAf 81.44 POC Glucometer Random Glucose 114 H Calcium 8.7 Magnesium 1.9 Total Bilirubin 0.5 AST 22 ALT 32 Alkaline Phosphatase 71 Troponin I < 0.02 B-Natriuretic Peptide 41.1 Total Protein 7.0 Albumin 3.7 Influenza A (Rapid) Negative Influenza B (Rapid) Negative 07/22/19 07/23/19 07/23/19 22:56 05:59 07:46 WBC 10.3 H RBC 4.53 Hgb 13.3 Hct 39.9 MCV 88.3 MCH 29.5 MCHC 33.4 RDW 13.0 Plt Count 264 MPV 8.5 Absolute Neuts (auto) Neutrophils % Lymphocytes % Monocytes % Eosinophils % Basophils % Nucleated RBC % Sodium Potassium Chloride Carbon Dioxide Anion Gap BUN Creatinine Est GFR (CKD-EPI)AfAm Est GFR (CKD-EPI)NonAf POC Glucometer 213 151 Random Glucose Calcium Magnesium Total Bilirubin AST ALT Alkaline Phosphatase Troponin I B-Natriuretic Peptide Total Protein Albumin Influenza A (Rapid) Influenza B (Rapid) 07/23/19 07/23/19 07:46 12:17 WBC RBC Hgb Hct MCV MCH MCHC RDW Plt Count MPV Absolute Neuts (auto) Neutrophils % Lymphocytes % Monocytes % Eosinophils % Basophils % Nucleated RBC % Sodium 140 Potassium 4.4 Chloride 108 H Carbon Dioxide 23 Anion Gap 9 BUN 10.7 Creatinine 0.9 Est GFR (CKD-EPI)AfAm 107.22 Est GFR (CKD-EPI)NonAf 92.51 POC Glucometer 146 Random Glucose 136 H Calcium 8.6 Magnesium 2.1 Total Bilirubin AST ALT Alkaline Phosphatase Troponin I B-Natriuretic Peptide Total Protein Albumin Influenza A (Rapid) Influenza B (Rapid) HOSPITAL COURSE: Date of Admission:07/22/19 Patient is a 58 y/o M w/ PMH HTN, chronic lower back pain, asthma, nicotine dependence who presented w/ increasing SOB with chest tightness. Paient was admitted for acute asthma exacerbation. Patient was treated with prednisone, solumedrol, duonebs, albuterol nebulizer, azithromycin and MgSO4 2g. Patient's breathing significantly improved. Patient was discharged home with prescriptions for Prednisone 40 mg for 4 more days, azithromycin 250 for 4 more days, and a nebulizer machine with albuterol ampules. Date of Discharge: 07/23/19 Minutes to complete discharge: 35 Discharge Summary Problems reviewed: Yes Reason For Visit: EXACERBATION OF ASTHMA Condition: Improved - Instructions Diet, Activity, Other Instructions: You presented to the hospital due to wheezing and shortness of breath. You were found to have an exacerbation of your asthma. You were treated with steroids, Bronchodilator Nebulizations, and Azithromycin. You showed significant improvement and should continue the treatment regimen as below. Please take the following medications below: -Prednisone 40 mg once daily for 4 more days -Azithromycin 250 mg once per day for 4 more days - DuoNebs as required. Please follow up with your primary care provider and pulmonary physician (Dr. Banda). A referral was given to you to see Dr. Banda as an out-patient. Please return to the emergency department immediately if you begin to experience chest pain, shortness of breath, or any other abnormal symptoms. Referrals: Chad Banda MD [Staff Physician] - Tiny Damon MD [Primary Care Provider] - Disposition: HOME - Home Medications Comprehensive Discharge Medication List: Ambulatory Orders Losartan Potassium [Cozaar -] 50 mg PO DAILY 02/26/16 Loratadine [Claritin] 10 mg PO DAILY 05/14/16 Albuterol 0.083% Nebulizer Emmy [Ventolin 0.083% Nebulizer Soln -] 1 neb NEB Q4H PRN #30 vial 07/23/19 Albuterol Sulfate Inhaler - [Ventolin HFA Inhaler -] 1 - 2 inh PO PRN #1 inhaler 07/23/19 Atorvastatin Ca [Lipitor] 40 mg PO DAILY 07/23/19 Azithromycin 250 mg PO DAILY #4 tablet 07/23/19 Miscellaneous Medical Supply [Outpatient Order] 1 each ASDIR #1 misc 07/23/19 predniSONE [Deltasone -] 40 mg PO DAILY #8 tablet 07/23/19 This patient is new to me today: Yes Date on this admission: 07/23/19 Emergency Visit: Yes ED Registration Date: 07/22/19 Care time: The patient presented to the Emergency Department on the above date and was hospitalized for further evaluation of their emergent condition. Critical Care patient: No - Discharge Referral Referred to [facility] Med P.C.: No ATTENDING PHYSICIAN STATEMENT I saw and evaluated the patient. I reviewed the resident's note and discussed the case with the resident. I agree with the resident's findings and plan as documented. SUBJECTIVE: OBJECTIVE: ASSESSMENT AND PLAN:
== END 2019-07-23 16:23 | disposition home or self-care (01) | DRG 141 ==
LOC: JER 12:54 → JERFT 12:54 → JERBED 17:57 → J5S 22:01
PROVIDERS: ADMIT Internal Medicine
DX: J45.51 Severe persistent asthma with (acute) exacerbation (principal); E78.5 Hyperlipidemia, unspecified; I10 Essential (primary) hypertension
CPT/HCPCS: 36415; 71046-TC-FY; 80048; 80053; 82962; 83735; 83880; 84484; 85025; 85027; 87633; 87804; 93005; 93010; 94640; 99285-25; J7030

== ENCOUNTER 2020-05-26 22:23 | Emergency (ER) | payer OTHER ==
[2020-05-26 22:31] VITALS: TEMP 99; BMI 24.1
[2020-05-26 23:17] LABS: BASO % 0.7 % (0-2.0); EOS % 1.5 % (0-4.5); HEMATOCRIT 37.5 % (35.4-49); HEMOGLOBIN 12.3 GM/dL (11.7-16.9); LYMPH % 15.5 % (8-40); MCH 28.8 pg (25.7-33.7); MCHC 32.7 g/dl (32.0-35.9); MEAN CELL VOLUME 88.1 fl (80-96); MEAN PLT VOLUME 7.3 fl (7.5-11.1); MONO % 4.9 % (3.8-10.2); NEUT % 77.4 % (42.8-82.8); PLATELET COUNT 481 K/MM3 (134-434); RBC 4.26 M/mm3 (4.00-5.60); RDW 12.3 % (11.9-15.9); WHITE BLOOD COUNT 13.4 K/mm3 (4.0-10.0)
[2020-05-26 23:28] LABS: INR 1.04 (0.83-1.09); PROTHROMBIN TIME (PATIENT) 12.6 SEC (9.7-13.0)
[2020-05-26 23:30] LABS: ACTIVATED PTT 32.6 SECONDS (25.2-36.5)
[2020-05-26 23:43] LABS: CHLORIDE 106 mmol/L (98-107); POTASSIUM 4.5 mmol/L (3.5-5.1); SODIUM 139 mmol/L (136-145)
[2020-05-26 23:45] LABS: ALBUMIN 2.8 g/dl (3.4-5.0); ANION GAP 8 MMOL/L (8-16); BLOOD UREA NITROGEN 13.2 mg/dL (7-18); CALCIUM 8.5 mg/dL (8.5-10.1); CO2 24 mmol/L (21-32); GLUCOSE,RANDOM 72 mg/dL (74-106)
[2020-05-26 23:48] LABS: BILIRUBIN,DIRECT 0.1 mg/dL (0.0-0.2); CREATININE 0.9 mg/dL (0.55-1.3); SGOT/AST 27 U/L (15-37); SGPT/ALT 36 U/L (13-61)
[2020-05-26 23:49] LABS: LDH 464 U/L (87-246)
[2020-05-26 23:50] LABS: BILIRUBIN,TOTAL 0.4 mg/dL (0.2-1); TOT PROT 6.2 g/dl (6.4-8.2)
[2020-05-26 23:51] LABS: ALK PHOS 97 U/L (45-117)
[2020-05-27 02:03] VITALS: BP 130/80; PULSE 78
== END 2020-05-27 01:55 | disposition home or self-care (01) ==
LOC: JER 22:23
DX: Z11.52 Encounter for screening for COVID-19 (principal)
CPT/HCPCS: 36415; 71045-TC-FY; 80053; 82248; 82550; 82553; 82728; 83605; 83615; 84484; 85025; 85610; 85730; 86140; 87040; 87804; 93005; 93010; 99284-25; C9803; U0003

== ENCOUNTER 2020-05-31 07:19 | Emergency (ER) | payer OTHER ==
[2020-05-31 07:28] VITALS: BP 148/91; TEMP 98.5; BMI 24.6
[2020-05-31 08:20] VITALS: PULSE 88
== END 2020-05-31 08:47 | disposition home or self-care (01) ==
LOC: JER 07:19
DX: R60.0 Localized edema (principal)
CPT/HCPCS: 99281-25

== ENCOUNTER 2020-06-04 19:54 | Inpatient (IN) | payer OTHER ==
[2020-06-04 20:07] VITALS: BMI 24.6
[2020-06-04] MEDS ORDERED: MAGNESIUM SULF 50% (8.12 MEQ/2 ML-1 GM VIAL) IVPB ONE (20:11)
[2020-06-04] MEDS ORDERED: ALBUTEROL SO4 2.5/IPRATROPIUM 0.5 INH SOL 3 ML VIAL.NEB. NEB ONE ×4 (20:11→20:34)
[2020-06-04] MEDS ORDERED: MAGNESIUM SULFATE IN WATER 2 GM/50 ML IVPB IVPB ONE (20:18)
[2020-06-04 21:24] LABS: BASO % 0.4 % (0-2.0); EOS % 2.3 % (0-4.5); HEMATOCRIT 38.4 % (35.4-49); HEMOGLOBIN 12.4 GM/dL (11.7-16.9); LYMPH % 19.4 % (8-40); MCH 28.5 pg (25.7-33.7); MCHC 32.3 g/dl (32.0-35.9); MEAN CELL VOLUME 88.3 fl (80-96); MEAN PLT VOLUME 7.5 fl (7.5-11.1); MONO % 4.6 % (3.8-10.2); NEUT % 73.3 % (42.8-82.8); PLATELET COUNT 327 K/MM3 (134-434); RBC 4.35 M/mm3 (4.00-5.60); RDW 12.5 % (11.9-15.9); WHITE BLOOD COUNT 15.4 K/mm3 (4.0-10.0)
[2020-06-04 21:50] LABS: CHLORIDE 106 mmol/L (98-107); POTASSIUM 4.9 mmol/L (3.5-5.1); SODIUM 143 mmol/L (136-145)
[2020-06-04 21:52] LABS: ALBUMIN 3.1 g/dl (3.4-5.0); ANION GAP 10 MMOL/L (8-16); BLOOD UREA NITROGEN 9.9 mg/dL (7-18); CALCIUM 9.4 mg/dL (8.5-10.1); CO2 27 mmol/L (21-32); GLUCOSE,RANDOM 128 mg/dL (74-106)
[2020-06-04 21:56] LABS: CREATININE 0.9 mg/dL (0.55-1.3); SGOT/AST 19 U/L (15-37); SGPT/ALT 23 U/L (13-61)
[2020-06-04 21:57] LABS: BILIRUBIN,TOTAL 0.6 mg/dL (0.2-1); TOT PROT 7.1 g/dl (6.4-8.2)
[2020-06-04 21:59] LABS: ALK PHOS 105 U/L (45-117)
[2020-06-04 22:00] LABS: N-TERMINAL BNP 299.5 pg/ml (5-125)
[2020-06-04] MEDS ORDERED: AZITHROMYCIN IVPB 500 MG in DEXTROSE 5%-WATER - 250 ML IVPB ONE (22:06)
[2020-06-04] MEDS ORDERED: AZITHROMYCIN IVPB 500 MG/250 ML BAG IVPB ONE (22:51)
[2020-06-04] MEDS: LACTATED RINGERS SOLUTION 1,000 ML/1,000 ML INFUS.BAG IV SCH (23:56)
[2020-06-05] MEDS ORDERED: ONDANSETRON 4 MG/2 ML VIAL IVPUSH PRN (00:06)
[2020-06-05 01:00] LABS: POTASSIUM 4.7 mmol/L (3.5-5.1)
[2020-06-05 01:03] LABS: ALBUMIN 2.9 g/dl (3.4-5.0); BLOOD UREA NITROGEN 9.9 mg/dL (7-18); CALCIUM 8.8 mg/dL (8.5-10.1); MAGNESIUM 2.5 mg/dL (1.8-2.4)
[2020-06-05 01:06] LABS: CREATININE 0.8 mg/dL (0.55-1.3)
[2020-06-05 01:06] LABS: LDH 427 U/L (87-246)
[2020-06-05 01:08] LABS: BILIRUBIN,TOTAL 0.5 mg/dL (0.2-1); TOT PROT 7.2 g/dl (6.4-8.2)
[2020-06-05 01:39] LABS: ARTERIAL BLD GAS O2 SATURATION 97.1 mmHg (95-98); ARTERIAL BLOOD GAS BASE EXCESS 1.6 mmol/L (-2-2); ARTERIAL BLOOD GAS PO2 87.2 mmHg (80-100); ARTERIAL BLOOD GAS pH 7.465 (7.350-7.450)
[2020-06-05 01:40] LABS: ALLENS TEST POSITIVE
[2020-06-05] MEDS ORDERED: methylPREDNISolone NA SUCC 40 MG/1 ML VIAL ONE ×3 (02:02→19:29)
[2020-06-05] MEDS: methylPREDNISolone NA SUCC 40 MG/1 ML VIAL IVPUSH SCH ×3 (02:07→19:40)
[2020-06-05] MEDS ORDERED: PIPERACILLIN/TAZOB 3.375 GM 3.375 GM/50 ML BAG IVPB ONE ×3 (02:14→19:29)
[2020-06-05] MEDS: PIPERACILLIN/TAZOB 3.375 GM 3.375 GM in DEXTROSE 5%-WATER - 50 ML IVPB SCH ×3 (02:19→20:04)
[2020-06-05 06:31] LABS: BASO % 0.6 % (0-2.0); HEMATOCRIT 37.2 % (35.4-49); HEMOGLOBIN 12.3 GM/dL (11.7-16.9); LYMPH % 13.9 % (8-40); MCH 28.4 pg (25.7-33.7); MCHC 33.2 g/dl (32.0-35.9); MEAN CELL VOLUME 85.5 fl (80-96); MEAN PLT VOLUME 7.4 fl (7.5-11.1); MONO % 1.5 % (3.8-10.2); PLATELET COUNT 314 K/MM3 (134-434); RBC 4.35 M/mm3 (4.00-5.60); RDW 12.3 % (11.9-15.9); WHITE BLOOD COUNT 7.5 K/mm3 (4.0-10.0)
[2020-06-05 06:54] LABS: POTASSIUM 5.1 mmol/L (3.5-5.1)
[2020-06-05 06:55] LABS: CALCIUM 9.2 mg/dL (8.5-10.1)
[2020-06-05 06:56] LABS: ALBUMIN 2.9 g/dl (3.4-5.0); BLOOD UREA NITROGEN 10.7 mg/dL (7-18)
[2020-06-05 06:59] LABS: CREATININE 0.8 mg/dL (0.55-1.3)
[2020-06-05 07:01] LABS: BILIRUBIN,TOTAL 0.6 mg/dL (0.2-1); TOT PROT 6.9 g/dl (6.4-8.2)
[2020-06-05] MEDS ORDERED: ASCORBIC ACID 500 MG TABLET (FP) ONE (07:52)
[2020-06-05] MEDS ORDERED: CHOLECALCIFEROL (VIT D3) 1,000 UNIT (25 MCG) TABLET ONE (07:52)
[2020-06-05] MEDS ORDERED: ZINC SULFATE 220 MG CAPSULE (FP) ONE (07:52)
[2020-06-05] MEDS ORDERED: ENOXAPARIN NA (PORCINE) 40 MG/0.4 ML DISP.SYRIN SQ ONE (07:53)
[2020-06-05] MEDS: ENOXAPARIN NA (PORCINE) 40 MG/0.4 ML DISP.SYRIN SQ SCH (10:09)
[2020-06-05] MEDS: ZINC SULFATE 220 MG CAPSULE (FP) PO SCH (10:09)
[2020-06-05] MEDS: ASCORBIC ACID 500 MG TABLET (FP) PO SCH ×2 (10:09→22:17)
[2020-06-05] MEDS: CHOLECALCIFEROL (VIT D3) 1,000 UNIT (25 MCG) TABLET PO SCH (10:09)
[2020-06-05] MEDS ORDERED: CEFTRIAXONE 1 GM in DEXTROSE 5%-WATER - 50 ML IVPB SCH (11:15)
[2020-06-05] MEDS ORDERED: AZITHROMYCIN IVPB 250 MG in DEXTROSE 5%-WATER - 250 ML IVPB SCH (11:15)
[2020-06-05] MEDS: ATORVASTATIN CA 40 MG TABLET (FP) PO SCH (22:17)
[2020-06-05] MEDS: MONTELUKAST NA 10 MG TABLET PO SCH (22:17)
[2020-06-06] MEDS ORDERED: DEXTROSE 5%-WATER - 50 ML IVPB ONE ×3 (01:09→16:24)
[2020-06-06] MEDS ORDERED: PIPERACILLIN/TAZOBACTAM 3.375 GM VIAL IVPB ONE ×3 (01:09→16:23)
[2020-06-06] MEDS ORDERED: PIPERACILLIN/TAZOB 3.375 GM 3.375 GM in DEXTROSE 5%-WATER - 50 ML IVPB SCH (02:00)
[2020-06-06] MEDS: methylPREDNISolone NA SUCC 40 MG/1 ML VIAL IVPUSH SCH ×3 (02:02→17:36)
[2020-06-06] MEDS: LACTATED RINGERS SOLUTION 1,000 ML/1,000 ML INFUS.BAG IV SCH (02:03)
[2020-06-06] MEDS: PIPERACILLIN/TAZOB 3.375 GM 3.375 GM in DEXTROSE 5%-WATER - 50 ML IVPB SCH ×3 (02:03→17:36)
[2020-06-06] MEDS: ACETAMINOPHEN 325 MG TABLET (FP) PO PRN (02:27)
[2020-06-06 07:11] LABS: BASO % 0.4 % (0-2.0); HEMATOCRIT 35.5 % (35.4-49); HEMOGLOBIN 11.7 GM/dL (11.7-16.9); LYMPH % 8.5 % (8-40); MCH 28.7 pg (25.7-33.7); MEAN CELL VOLUME 86.8 fl (80-96); MEAN PLT VOLUME 7.9 fl (7.5-11.1); MONO % 4.1 % (3.8-10.2); PLATELET COUNT 345 K/MM3 (134-434); RBC 4.09 M/mm3 (4.00-5.60); RDW 12.1 % (11.9-15.9); WHITE BLOOD COUNT 15.9 K/mm3 (4.0-10.0)
[2020-06-06 07:33] LABS: POTASSIUM 4.8 mmol/L (3.5-5.1)
[2020-06-06 07:39] LABS: ALBUMIN 2.7 g/dl (3.4-5.0); CALCIUM 9.2 mg/dL (8.5-10.1)
[2020-06-06 07:40] LABS: BLOOD UREA NITROGEN 17.4 mg/dL (7-18); MAGNESIUM 2.1 mg/dL (1.8-2.4)
[2020-06-06 07:42] LABS: BILIRUBIN,TOTAL 0.8 mg/dL (0.2-1); CREATININE 0.9 mg/dL (0.55-1.3); TOT PROT 6.8 g/dl (6.4-8.2)
[2020-06-06 07:43] LABS: PHOSPHOROUS 3.8 mg/dL (2.5-4.9)
[2020-06-06 08:02] LABS: ERYTHROCYTE SEDIMENTATION RATE 87 mm/hr (0-20)
[2020-06-06] MEDS: ASCORBIC ACID 500 MG TABLET (FP) PO SCH ×2 (09:56→22:27)
[2020-06-06] MEDS: CHOLECALCIFEROL (VIT D3) 1,000 UNIT (25 MCG) TABLET PO SCH (09:56)
[2020-06-06] MEDS: ZINC SULFATE 220 MG CAPSULE (FP) PO SCH (09:56)
[2020-06-06] MEDS: LOSARTAN POTASSIUM 50 MG TABLET PO SCH (09:56)
[2020-06-06] MEDS: ENOXAPARIN NA (PORCINE) 40 MG/0.4 ML DISP.SYRIN SQ SCH (09:56)
[2020-06-06] MEDS: ASPIRIN 81 MG CHEWABLE TABLETS PO SCH (14:49)
[2020-06-06] MEDS: BUDESONIDE/FORMETEROL FUMARATE 80/4.5 mcg INHALER IH SCH ×2 (14:56→22:27)
[2020-06-06] MEDS: ALBUTEROL SO4 HFA INHALER IH PRN (14:58)
[2020-06-06] MEDS: ALBUTEROL SO4 2.5/IPRATROPIUM 0.5 INH SOL 3 ML VIAL.NEB. NEB SCH (20:35)
[2020-06-06] MEDS: MONTELUKAST NA 10 MG TABLET PO SCH (22:26)
[2020-06-06] MEDS: ATORVASTATIN CA 40 MG TABLET (FP) PO SCH (22:26)
[2020-06-06] MEDS: FAMOTIDINE 20 MG TABLET PO SCH (22:26)
[2020-06-07] MEDS ORDERED: DEXTROSE 5%-WATER - 50 ML IVPB ONE ×3 (02:32→17:01)
[2020-06-07] MEDS ORDERED: PIPERACILLIN/TAZOBACTAM 3.375 GM VIAL IVPB ONE ×3 (02:32→17:01)
[2020-06-07] MEDS: PIPERACILLIN/TAZOB 3.375 GM 3.375 GM in DEXTROSE 5%-WATER - 50 ML IVPB SCH ×3 (02:47→17:03)
[2020-06-07] MEDS: methylPREDNISolone NA SUCC 40 MG/1 ML VIAL IVPUSH SCH ×3 (02:48→17:04)
[2020-06-07 07:39] LABS: BASO % 0.2 % (0-2.0); HEMATOCRIT 33.2 % (35.4-49); HEMOGLOBIN 11.2 GM/dL (11.7-16.9); LYMPH % 7.4 % (8-40); MCH 28.7 pg (25.7-33.7); MCHC 33.7 g/dl (32.0-35.9); MEAN CELL VOLUME 85.4 fl (80-96); MEAN PLT VOLUME 7.8 fl (7.5-11.1); MONO % 3.6 % (3.8-10.2); NEUT % 88.8 % (42.8-82.8); PLATELET COUNT 365 K/MM3 (134-434); RBC 3.89 M/mm3 (4.00-5.60); RDW 12.1 % (11.9-15.9); WHITE BLOOD COUNT 14.8 K/mm3 (4.0-10.0)
[2020-06-07] MEDS: ALBUTEROL SO4 2.5/IPRATROPIUM 0.5 INH SOL 3 ML VIAL.NEB. NEB SCH ×4 (08:11→20:42)
[2020-06-07 08:23] LABS: POTASSIUM 4.7 mmol/L (3.5-5.1)
[2020-06-07 08:29] LABS: CALCIUM 9.1 mg/dL (8.5-10.1)
[2020-06-07 08:30] LABS: ALBUMIN 2.6 g/dl (3.4-5.0); BLOOD UREA NITROGEN 18.6 mg/dL (7-18); MAGNESIUM 2.2 mg/dL (1.8-2.4)
[2020-06-07 08:31] LABS: CREATININE 0.9 mg/dL (0.55-1.3); PHOSPHOROUS 3.8 mg/dL (2.5-4.9)
[2020-06-07 08:33] LABS: BILIRUBIN,TOTAL 0.6 mg/dL (0.2-1); TOT PROT 6.4 g/dl (6.4-8.2)
[2020-06-07] MEDS: ZINC SULFATE 220 MG CAPSULE (FP) PO SCH (11:07)
[2020-06-07] MEDS: ASCORBIC ACID 500 MG TABLET (FP) PO SCH ×2 (11:07→21:40)
[2020-06-07] MEDS: CHOLECALCIFEROL (VIT D3) 1,000 UNIT (25 MCG) TABLET PO SCH (11:07)
[2020-06-07] MEDS: LOSARTAN POTASSIUM 50 MG TABLET PO SCH (11:07)
[2020-06-07] MEDS: ENOXAPARIN NA (PORCINE) 40 MG/0.4 ML DISP.SYRIN SQ SCH (11:07)
[2020-06-07] MEDS: ASPIRIN 81 MG CHEWABLE TABLETS PO SCH (11:08)
[2020-06-07] MEDS: FAMOTIDINE 20 MG TABLET PO SCH ×2 (11:08→21:40)
[2020-06-07] MEDS: BUDESONIDE/FORMETEROL FUMARATE 80/4.5 mcg INHALER IH SCH ×2 (11:09→21:42)
[2020-06-07] MEDS: LORazepam 0.5 MG TABLET PO PRN (21:39)
[2020-06-07] MEDS: MONTELUKAST NA 10 MG TABLET PO SCH (21:40)
[2020-06-07] MEDS: ATORVASTATIN CA 40 MG TABLET (FP) PO SCH (21:40)
[2020-06-08] MEDS ORDERED: PIPERACILLIN/TAZOBACTAM 3.375 GM VIAL IVPB ONE ×3 (00:27→17:04)
[2020-06-08] MEDS ORDERED: DEXTROSE 5%-WATER - 50 ML IVPB ONE ×3 (00:28→17:04)
[2020-06-08] MEDS: PIPERACILLIN/TAZOB 3.375 GM 3.375 GM in DEXTROSE 5%-WATER - 50 ML IVPB SCH ×3 (01:15→17:24)
[2020-06-08] MEDS: methylPREDNISolone NA SUCC 40 MG/1 ML VIAL IVPUSH SCH ×3 (01:15→17:22)
[2020-06-08 07:25] LABS: BASO % 0.1 % (0-2.0); HEMATOCRIT 33.9 % (35.4-49); HEMOGLOBIN 11.3 GM/dL (11.7-16.9); LYMPH % 6.1 % (8-40); MCH 28.5 pg (25.7-33.7); MCHC 33.3 g/dl (32.0-35.9); MEAN CELL VOLUME 85.8 fl (80-96); MEAN PLT VOLUME 7.5 fl (7.5-11.1); MONO % 5.6 % (3.8-10.2); NEUT % 88.2 % (42.8-82.8); PLATELET COUNT 385 K/MM3 (134-434); RBC 3.95 M/mm3 (4.00-5.60); RDW 12.1 % (11.9-15.9); WHITE BLOOD COUNT 14.8 K/mm3 (4.0-10.0)
[2020-06-08 07:37] LABS: POTASSIUM 4.5 mmol/L (3.5-5.1)
[2020-06-08] MEDS: ALBUTEROL SO4 2.5/IPRATROPIUM 0.5 INH SOL 3 ML VIAL.NEB. NEB SCH ×4 (07:45→20:35)
[2020-06-08 07:50] LABS: CALCIUM 8.8 mg/dL (8.5-10.1)
[2020-06-08 07:51] LABS: ALBUMIN 2.5 g/dl (3.4-5.0); BLOOD UREA NITROGEN 19.9 mg/dL (7-18); MAGNESIUM 2.3 mg/dL (1.8-2.4)
[2020-06-08 07:55] LABS: BILIRUBIN,TOTAL 0.6 mg/dL (0.2-1)
[2020-06-08 07:56] LABS: TOT PROT 6.1 g/dl (6.4-8.2)
[2020-06-08] MEDS ORDERED: PT OWN MED DRAWER 7, Y5N ONE (10:11)
[2020-06-08] MEDS: ZINC SULFATE 220 MG CAPSULE (FP) PO SCH (10:15)
[2020-06-08] MEDS: CHOLECALCIFEROL (VIT D3) 1,000 UNIT (25 MCG) TABLET PO SCH (10:15)
[2020-06-08] MEDS: ASPIRIN 81 MG CHEWABLE TABLETS PO SCH (10:15)
[2020-06-08] MEDS: ASCORBIC ACID 500 MG TABLET (FP) PO SCH ×2 (10:15→21:19)
[2020-06-08] MEDS: ENOXAPARIN NA (PORCINE) 40 MG/0.4 ML DISP.SYRIN SQ SCH (10:16)
[2020-06-08] MEDS: LOSARTAN POTASSIUM 50 MG TABLET PO SCH (10:16)
[2020-06-08] MEDS: FAMOTIDINE 20 MG TABLET PO SCH ×2 (10:17→21:20)
[2020-06-08] MEDS: BUDESONIDE/FORMETEROL FUMARATE 80/4.5 mcg INHALER IH SCH ×2 (10:18→21:20)
[2020-06-08] MEDS: FLUTICASONE PROP 0.05% 16 GM NASAL SPRAY NS SCH (16:00)
[2020-06-08] MEDS: ATORVASTATIN CA 40 MG TABLET (FP) PO SCH (21:19)
[2020-06-08] MEDS: LORazepam 0.5 MG TABLET PO PRN (21:19)
[2020-06-08] MEDS: MONTELUKAST NA 10 MG TABLET PO SCH (21:20)
[2020-06-09] MEDS ORDERED: DEXTROSE 5%-WATER - 50 ML IVPB ONE ×3 (00:53→16:21)
[2020-06-09] MEDS ORDERED: PIPERACILLIN/TAZOBACTAM 3.375 GM VIAL IVPB ONE ×3 (00:53→16:21)
[2020-06-09] MEDS: methylPREDNISolone NA SUCC 40 MG/1 ML VIAL IVPUSH SCH ×3 (01:05→21:35)
[2020-06-09] MEDS: PIPERACILLIN/TAZOB 3.375 GM 3.375 GM in DEXTROSE 5%-WATER - 50 ML IVPB SCH ×3 (01:05→17:55)
[2020-06-09 07:25] LABS: BASO % 0.1 % (0-2.0); HEMATOCRIT 34.5 % (35.4-49); HEMOGLOBIN 11.7 GM/dL (11.7-16.9); MCH 29.2 pg (25.7-33.7); MEAN CELL VOLUME 86.1 fl (80-96); MEAN PLT VOLUME 7.8 fl (7.5-11.1); MONO % 4.9 % (3.8-10.2); PLATELET COUNT 445 K/MM3 (134-434); RBC 4.01 M/mm3 (4.00-5.60); RDW 12.1 % (11.9-15.9); WHITE BLOOD COUNT 16.1 K/mm3 (4.0-10.0)
[2020-06-09] MEDS ORDERED: PT OWN MED DRAWER 7, Y5N ONE (07:29)
[2020-06-09 07:34] LABS: POTASSIUM 4.7 mmol/L (3.5-5.1)
[2020-06-09 07:42] LABS: ALBUMIN 2.8 g/dl (3.4-5.0); CALCIUM 8.9 mg/dL (8.5-10.1)
[2020-06-09 07:43] LABS: MAGNESIUM 2.1 mg/dL (1.8-2.4)
[2020-06-09 07:45] LABS: PHOSPHOROUS 4.1 mg/dL (2.5-4.9)
[2020-06-09 07:47] LABS: BILIRUBIN,TOTAL 0.8 mg/dL (0.2-1); TOT PROT 6.5 g/dl (6.4-8.2)
[2020-06-09] MEDS: ALBUTEROL SO4 2.5/IPRATROPIUM 0.5 INH SOL 3 ML VIAL.NEB. NEB SCH ×4 (07:50→19:55)
[2020-06-09] MEDS: ENOXAPARIN NA (PORCINE) 40 MG/0.4 ML DISP.SYRIN SQ SCH (09:20)
[2020-06-09] MEDS: ZINC SULFATE 220 MG CAPSULE (FP) PO SCH (09:21)
[2020-06-09] MEDS: LOSARTAN POTASSIUM 50 MG TABLET PO SCH (09:21)
[2020-06-09] MEDS: ASPIRIN 81 MG CHEWABLE TABLETS PO SCH (09:21)
[2020-06-09] MEDS: FLUTICASONE PROP 0.05% 16 GM NASAL SPRAY NS SCH (09:21)
[2020-06-09] MEDS: CHOLECALCIFEROL (VIT D3) 1,000 UNIT (25 MCG) TABLET PO SCH (09:21)
[2020-06-09] MEDS: ASCORBIC ACID 500 MG TABLET (FP) PO SCH ×2 (09:22→21:36)
[2020-06-09] MEDS: BUDESONIDE/FORMETEROL FUMARATE 80/4.5 mcg INHALER IH SCH ×2 (09:22→21:37)
[2020-06-09] MEDS: FAMOTIDINE 20 MG TABLET PO SCH ×2 (09:22→21:36)
[2020-06-09] MEDS: ALBUTEROL SO4 HFA INHALER IH PRN (09:23)
[2020-06-09 11:50] LABS: ANISOCYTOSIS 0; MACROCYTOSIS 0; PLATELET ESTIMATE NORMAL
[2020-06-09] MEDS: LORazepam 0.5 MG TABLET PO PRN (21:36)
[2020-06-09] MEDS: MONTELUKAST NA 10 MG TABLET PO SCH (21:36)
[2020-06-09] MEDS: ATORVASTATIN CA 40 MG TABLET (FP) PO SCH (21:36)
[2020-06-10] MEDS ORDERED: DEXTROSE 5%-WATER - 50 ML IVPB ONE ×3 (01:19→16:51)
[2020-06-10] MEDS ORDERED: PIPERACILLIN/TAZOBACTAM 3.375 GM VIAL IVPB ONE ×3 (01:19→16:51)
[2020-06-10] MEDS: PIPERACILLIN/TAZOB 3.375 GM 3.375 GM in DEXTROSE 5%-WATER - 50 ML IVPB SCH ×3 (02:00→17:56)
[2020-06-10 07:34] LABS: BASO % 0.1 % (0-2.0); HEMATOCRIT 36.3 % (35.4-49); HEMOGLOBIN 12.3 GM/dL (11.7-16.9); LYMPH % 9.6 % (8-40); MCHC 33.8 g/dl (32.0-35.9); MEAN CELL VOLUME 85.7 fl (80-96); MEAN PLT VOLUME 7.7 fl (7.5-11.1); MONO % 9.6 % (3.8-10.2); NEUT % 80.7 % (42.8-82.8); PLATELET COUNT 494 K/MM3 (134-434); RBC 4.23 M/mm3 (4.00-5.60); RDW 12.3 % (11.9-15.9); WHITE BLOOD COUNT 17.1 K/mm3 (4.0-10.0)
[2020-06-10] MEDS: ALBUTEROL SO4 2.5/IPRATROPIUM 0.5 INH SOL 3 ML VIAL.NEB. NEB SCH ×4 (07:35→20:30)
[2020-06-10 07:57] LABS: POTASSIUM 4.6 mmol/L (3.5-5.1)
[2020-06-10 08:02] LABS: ALBUMIN 2.8 g/dl (3.4-5.0)
[2020-06-10 08:03] LABS: BLOOD UREA NITROGEN 22.3 mg/dL (7-18); CALCIUM 8.9 mg/dL (8.5-10.1); MAGNESIUM 2.2 mg/dL (1.8-2.4)
[2020-06-10 08:06] LABS: PHOSPHOROUS 4.4 mg/dL (2.5-4.9)
[2020-06-10 08:07] LABS: BILIRUBIN,TOTAL 0.5 mg/dL (0.2-1); TOT PROT 6.5 g/dl (6.4-8.2)
[2020-06-10 09:09] LABS: ANISOCYTOSIS 1+; MACROCYTOSIS 0; PLATELET ESTIMATE INCREASED
[2020-06-10] MEDS: methylPREDNISolone NA SUCC 40 MG/1 ML VIAL IVPUSH SCH ×2 (09:31→22:05)
[2020-06-10] MEDS: CHOLECALCIFEROL (VIT D3) 1,000 UNIT (25 MCG) TABLET PO SCH (09:32)
[2020-06-10] MEDS: BUDESONIDE/FORMETEROL FUMARATE 80/4.5 mcg INHALER IH SCH ×2 (09:32→22:07)
[2020-06-10] MEDS: ZINC SULFATE 220 MG CAPSULE (FP) PO SCH (09:32)
[2020-06-10] MEDS: ASPIRIN 81 MG CHEWABLE TABLETS PO SCH (09:32)
[2020-06-10] MEDS: ASCORBIC ACID 500 MG TABLET (FP) PO SCH ×2 (09:32→22:07)
[2020-06-10] MEDS: ENOXAPARIN NA (PORCINE) 40 MG/0.4 ML DISP.SYRIN SQ SCH (09:32)
[2020-06-10] MEDS: FAMOTIDINE 20 MG TABLET PO SCH ×2 (09:32→22:05)
[2020-06-10] MEDS: LOSARTAN POTASSIUM 50 MG TABLET PO SCH (09:33)
[2020-06-10] MEDS: FLUTICASONE PROP 0.05% 16 GM NASAL SPRAY NS SCH (09:33)
[2020-06-10] MEDS: ATORVASTATIN CA 40 MG TABLET (FP) PO SCH (22:05)
[2020-06-10] MEDS: MONTELUKAST NA 10 MG TABLET PO SCH (22:06)
[2020-06-11] MEDS ORDERED: PIPERACILLIN/TAZOBACTAM 3.375 GM VIAL IVPB ONE ×3 (01:05→16:57)
[2020-06-11] MEDS ORDERED: DEXTROSE 5%-WATER - 50 ML IVPB ONE ×3 (01:06→16:57)
[2020-06-11] MEDS: PIPERACILLIN/TAZOB 3.375 GM 3.375 GM in DEXTROSE 5%-WATER - 50 ML IVPB SCH ×3 (01:51→17:22)
[2020-06-11 08:39] LABS: BASO % 0.1 % (0-2.0); EOS % 0.1 % (0-4.5); HEMATOCRIT 36.1 % (35.4-49); HEMOGLOBIN 11.9 GM/dL (11.7-16.9); LYMPH % 11.3 % (8-40); MCH 28.3 pg (25.7-33.7); MEAN CELL VOLUME 85.7 fl (80-96); MEAN PLT VOLUME 7.6 fl (7.5-11.1); MONO % 9.6 % (3.8-10.2); NEUT % 78.9 % (42.8-82.8); PLATELET COUNT 515 K/MM3 (134-434); RBC 4.21 M/mm3 (4.00-5.60); RDW 12.1 % (11.9-15.9); WHITE BLOOD COUNT 17.9 K/mm3 (4.0-10.0)
[2020-06-11 09:01] LABS: POTASSIUM 4.8 mmol/L (3.5-5.1)
[2020-06-11] MEDS ORDERED: PT OWN MED DRAWER 7, Y5N ONE ×2 (09:02→14:13)
[2020-06-11 09:07] LABS: CALCIUM 8.9 mg/dL (8.5-10.1)
[2020-06-11 09:08] LABS: ALBUMIN 2.6 g/dl (3.4-5.0); BLOOD UREA NITROGEN 21.7 mg/dL (7-18); MAGNESIUM 2.4 mg/dL (1.8-2.4)
[2020-06-11] MEDS: ALBUTEROL SO4 2.5/IPRATROPIUM 0.5 INH SOL 3 ML VIAL.NEB. NEB SCH ×4 (09:10→20:18)
[2020-06-11 09:11] LABS: CREATININE 0.9 mg/dL (0.55-1.3); PHOSPHOROUS 4.8 mg/dL (2.5-4.9)
[2020-06-11 09:12] LABS: BILIRUBIN,TOTAL 0.5 mg/dL (0.2-1)
[2020-06-11] MEDS: ENOXAPARIN NA (PORCINE) 40 MG/0.4 ML DISP.SYRIN SQ SCH (09:34)
[2020-06-11] MEDS: methylPREDNISolone NA SUCC 40 MG/1 ML VIAL IVPUSH SCH ×2 (09:34→21:59)
[2020-06-11] MEDS: CHOLECALCIFEROL (VIT D3) 1,000 UNIT (25 MCG) TABLET PO SCH (09:35)
[2020-06-11] MEDS: ASCORBIC ACID 500 MG TABLET (FP) PO SCH ×2 (09:35→21:58)
[2020-06-11] MEDS: ZINC SULFATE 220 MG CAPSULE (FP) PO SCH (09:35)
[2020-06-11] MEDS: ASPIRIN 81 MG CHEWABLE TABLETS PO SCH (09:36)
[2020-06-11] MEDS: FLUTICASONE PROP 0.05% 16 GM NASAL SPRAY NS SCH (09:36)
[2020-06-11] MEDS: FAMOTIDINE 20 MG TABLET PO SCH ×2 (09:36→21:59)
[2020-06-11] MEDS: LOSARTAN POTASSIUM 50 MG TABLET PO SCH (09:36)
[2020-06-11] MEDS: BUDESONIDE/FORMETEROL FUMARATE 80/4.5 mcg INHALER IH SCH ×2 (09:37→22:00)
[2020-06-11] MEDS: ACETAMINOPHEN 325 MG TABLET (FP) PO PRN (09:37)
[2020-06-11 10:40] LABS: ANISOCYTOSIS 1+; MACROCYTOSIS 1+; PLATELET ESTIMATE INCREASED
[2020-06-11] MEDS: LORazepam 0.5 MG TABLET PO PRN (21:58)
[2020-06-11] MEDS: ATORVASTATIN CA 40 MG TABLET (FP) PO SCH (21:59)
[2020-06-11] MEDS: MONTELUKAST NA 10 MG TABLET PO SCH (21:59)
[2020-06-12] MEDS ORDERED: DEXTROSE 5%-WATER - 50 ML IVPB ONE ×2 (01:38→09:18)
[2020-06-12] MEDS ORDERED: PIPERACILLIN/TAZOBACTAM 3.375 GM VIAL IVPB ONE ×2 (01:38→09:18)
[2020-06-12] MEDS: PIPERACILLIN/TAZOB 3.375 GM 3.375 GM in DEXTROSE 5%-WATER - 50 ML IVPB SCH ×2 (01:41→09:30)
[2020-06-12] MEDS: ACETAMINOPHEN 325 MG TABLET (FP) PO PRN (02:03)
[2020-06-12] MEDS: ALBUTEROL SO4 2.5/IPRATROPIUM 0.5 INH SOL 3 ML VIAL.NEB. NEB SCH (08:00)
[2020-06-12] MEDS: CHOLECALCIFEROL (VIT D3) 1,000 UNIT (25 MCG) TABLET PO SCH (09:25)
[2020-06-12] MEDS: FAMOTIDINE 20 MG TABLET PO SCH (09:25)
[2020-06-12] MEDS: ZINC SULFATE 220 MG CAPSULE (FP) PO SCH (09:25)
[2020-06-12] MEDS: ASCORBIC ACID 500 MG TABLET (FP) PO SCH (09:25)
[2020-06-12] MEDS: LOSARTAN POTASSIUM 50 MG TABLET PO SCH (09:25)
[2020-06-12] MEDS: ASPIRIN 81 MG CHEWABLE TABLETS PO SCH (09:26)
[2020-06-12] MEDS: BUDESONIDE/FORMETEROL FUMARATE 80/4.5 mcg INHALER IH SCH (09:29)
[2020-06-12] MEDS: FLUTICASONE PROP 0.05% 16 GM NASAL SPRAY NS SCH (09:29)
[2020-06-12] MEDS: ENOXAPARIN NA (PORCINE) 40 MG/0.4 ML DISP.SYRIN SQ SCH (09:29)
[2020-06-12] MEDS: methylPREDNISolone NA SUCC 40 MG/1 ML VIAL IVPUSH SCH (09:30)
[2020-06-12 12:21] VITALS: BP 145/90; PULSE 110; TEMP 97.6
== END 2020-06-12 11:30 | disposition home or self-care (01) | DRG 140 ==
LOC: JER 19:54 → JERBED 22:06 → J4S 06-05 22:01
PROVIDERS: ADMIT Hospitalist; ATTEND Internal Medicine
DX: J44.0 Chronic obstructive pulmonary disease with (acute) lower respiratory infection (principal); J18.9 Pneumonia, unspecified organism; J44.1 Chronic obstructive pulmonary disease with (acute) exacerbation; J45.50 Severe persistent asthma, uncomplicated; B94.8 Sequelae of other specified infectious and parasitic diseases; J96.01 Acute respiratory failure with hypoxia; I48.91 Unspecified atrial fibrillation; I11.0 Hypertensive heart disease with heart failure; I50.32 Chronic diastolic (congestive) heart failure; M54.9 Dorsalgia, unspecified; R00.0 Tachycardia, unspecified; D72.829 Elevated white blood cell count, unspecified; E78.5 Hyperlipidemia, unspecified
CPT/HCPCS: 36415; 36600; 71045-TC-FY; 71250-TC; 80053; 82550; 82728; 82803; 83615; 83735; 83880; 84100; 84484; 85025; 85379; 85651; 86140; 87040; 87070; 87205; 87804; 87899; 93005; 93010; 94640; 94761; 99285-25; C9803; U0003

== ENCOUNTER 2021-03-06 11:37 | Emergency (ER) | payer OTHER ==
[2021-03-06 11:51] VITALS: TEMP 97.7; BMI 26.1
[2021-03-06] MEDS ORDERED: ALBUTEROL SO4 2.5/IPRATROPIUM 0.5 INH SOL 3 ML VIAL.NEB. NEB ONE ×2 (12:06→12:11)
[2021-03-06] MEDS ORDERED: DEXAMETHASONE SOD PHOSPHATE 10 MG/1 ML VIAL IVPUSH ONE (12:07)
[2021-03-06] MEDS ORDERED: MAGNESIUM SULF 50% (8.12 MEQ/2 ML-1 GM VIAL) IVPB ONE (12:07)
[2021-03-06] MEDS ORDERED: DEXAMETHASONE SOD PHOSPHATE 10 MG/1 ML VIAL ONE (12:12)
[2021-03-06 12:37] LABS: BASO % 0.5 % (0-2.0); EOS % 0.2 % (0-4.5); HEMOGLOBIN 14.1 GM/dL (11.7-16.9); LYMPH % 13.9 % (8-40); MCH 28.4 pg (25.7-33.7); MCHC 33.5 g/dl (32.0-35.9); MEAN CELL VOLUME 84.5 fl (80-96); MEAN PLT VOLUME 7.7 fl (7.5-11.1); MONO % 7.2 % (3.8-10.2); NEUT % 78.2 % (42.8-82.8); PLATELET COUNT 284 10^3/uL (134-434); RBC 4.97 M/mm3 (4.00-5.60); WHITE BLOOD COUNT 17.4 K/mm3 (4.0-10.0)
[2021-03-06 12:46] LABS: VENOUS BASE EXCESS -2.6 mmol/L (-2-2); VENOUS O2 SATURATION 92.6 % (70-80); VENOUS PCO2 30.6 mmHg (38-52); VENOUS PH 7.44 (7.310-7.410)
[2021-03-06 12:57] LABS: SODIUM 138 mmol/L (136-145)
[2021-03-06 12:59] LABS: CALCIUM 9.3 mg/dL (8.5-10.1)
[2021-03-06 13:00] LABS: ALBUMIN 3.7 g/dl (3.4-5.0); CO2 19 mmol/L (21-32); GLUCOSE,RANDOM 90 mg/dL (74-106); MAGNESIUM 1.8 mg/dL (1.8-2.4)
[2021-03-06 13:03] LABS: SGOT/AST 21 U/L (15-37); SGPT/ALT 34 U/L (13-61)
[2021-03-06 13:05] LABS: BILIRUBIN,TOTAL 0.9 mg/dL (0.2-1); TOT PROT 7.1 g/dl (6.4-8.2)
[2021-03-06 13:06] LABS: ALK PHOS 85 U/L (45-117)
[2021-03-06 13:08] LABS: N-TERMINAL BNP 121.3 pg/ml (5-125)
[2021-03-06 13:48] LABS: ANION GAP 13 MMOL/L (8-16); BLOOD UREA NITROGEN 15.3 mg/dL (7-18); CHLORIDE 106 mmol/L (98-107)
[2021-03-06 14:07] VITALS: BP 126/68; PULSE 80
== END 2021-03-06 14:07 | disposition home or self-care (01) ==
LOC: JER 11:37
PROC: 3E0F7GC Introduction of Other Therapeutic Substance into Respiratory Tract, Via Natural or Artificial Opening (ICD-10-PCS; principal; 2021-03-06)
PROC: 3E033GC Introduction of Other Therapeutic Substance into Peripheral Vein, Percutaneous Approach (ICD-10-PCS; 2021-03-06)
DX: R06.02 Shortness of breath (principal)
CPT/HCPCS: 36415; 71045-TC-FY; 80053; 82550; 82553; 82803; 83735; 83880; 84484; 85025; 93005; 93010; 99285-25; C9803; J1100; U0003; U0005

== ENCOUNTER 2021-04-07 18:36 | Inpatient (IN) | payer OTHER ==
[2021-04-07 18:51] VITALS: BMI 27.3
[2021-04-07] MEDS ORDERED: ASPIRIN 81 MG CHEWABLE TABLETS PO ONE (19:21)
[2021-04-07] MEDS ORDERED: LIDOCAINE 5% TOPICAL PATCH TP ONE (19:38)
[2021-04-07] MEDS ORDERED: ASPIRIN 81 MG CHEWABLE TABLETS ONE (19:58)
[2021-04-07] MEDS ORDERED: LIDOCAINE 5% TOPICAL PATCH ONE (19:59)
[2021-04-07 20:01] LABS: BASO % 0.5 % (0-2.0); EOS % 0.6 % (0-4.5); HEMATOCRIT 41.5 % (35.4-49); LYMPH % 18.7 % (8-40); MCH 29.1 pg (25.7-33.7); MCHC 33.8 g/dl (32.0-35.9); MEAN CELL VOLUME 86.1 fl (80-96); MEAN PLT VOLUME 8.3 fl (7.5-11.1); MONO % 6.5 % (3.8-10.2); NEUT % 73.7 % (42.8-82.8); PLATELET COUNT 265 10^3/uL (134-434); RBC 4.82 M/mm3 (4.00-5.60); RDW 12.9 % (11.9-15.9); WHITE BLOOD COUNT 11.2 K/mm3 (4.0-10.0)
[2021-04-07 20:07] LABS: INR 0.95 (0.83-1.09); PROTHROMBIN TIME (PATIENT) 10.6 SEC (9.7-13.0)
[2021-04-07 20:10] LABS: ACTIVATED PTT 29.3 SECONDS (25.2-36.5); CHLORIDE 108 mmol/L (98-107); SODIUM 138 mmol/L (136-145)
[2021-04-07 20:12] LABS: ALBUMIN 3.4 g/dl (3.4-5.0); ANION GAP 8 MMOL/L (8-16); CALCIUM 8.5 mg/dL (8.5-10.1); CO2 22 mmol/L (21-32); GLUCOSE,RANDOM 99 mg/dL (74-106)
[2021-04-07 20:15] LABS: SGOT/AST 43 U/L (15-37); SGPT/ALT 38 U/L (13-61)
[2021-04-07 20:17] LABS: BILIRUBIN,TOTAL 0.5 mg/dL (0.2-1); TOT PROT 6.7 g/dl (6.4-8.2)
[2021-04-07 20:18] LABS: ALK PHOS 77 U/L (45-117)
[2021-04-07] MEDS ORDERED: POLYETHYLENE GLYCOL (HEALTHYLAX) 3350 17 GM PACKET PO PRN (21:24)
[2021-04-07] MEDS ORDERED: ACETAMINOPHEN 325 MG TABLET (FP) PO ONE (21:34)
[2021-04-07] MEDS ORDERED: ACETAMINOPHEN 325 MG TABLET (FP) ONE (21:54)
[2021-04-07] MEDS: ACETAMINOPHEN 325 MG TABLET (FP) PO PRN (21:56)
[2021-04-07] MEDS: LIDOCAINE PATCH REMOVAL MC SCH (22:15)
[2021-04-08 00:34] LABS: ARTERIAL BLD GAS O2 SATURATION 94.4 % (95-98); ARTERIAL BLOOD GAS BASE EXCESS -1.5 mmol/L (-2-2); ARTERIAL BLOOD GAS PO2 68.8 mmHg (80-100); ARTERIAL BLOOD GAS pH 7.432 (7.350-7.450)
[2021-04-08 00:37] LABS: ALLENS TEST POSITIVE
[2021-04-08 01:06] LABS: EPI CELLS 6 /uL (0-25.1); HYALINE CASTS 2 /uL (0-3.1); URINE APPEARANCE CLEAR; URINE BACTERIA 4 /uL (0-1359); URINE BILIRUBIN NEGATIVE (NEGATIVE); URINE COLOR YELLOW; URINE GLUCOSE (UA) NEGATIVE (NEGATIVE); URINE KETONE TRACE (NEGATIVE); URINE LEUK ESTERASE TRACE (NEGATIVE); URINE NITRITE NEGATIVE (NEGATIVE); URINE PROTEIN NEGATIVE (NEGATIVE); URINE RBC 4 /uL (0-23.9); URINE UROBILINOGEN 0.2 mg/dL (0.2-1.0); URINE WBC 32 /uL (0-25.8)
[2021-04-08] MEDS ORDERED: ACETAMINOPHEN 1000 MG/100 ML VIAL IVPB ONE ×2 (02:14→19:56)
[2021-04-08 03:14] LABS: MAGNESIUM 1.7 mg/dL (1.8-2.4)
[2021-04-08] MEDS ORDERED: ALBUTEROL SO4 0.083% IH SOL 2.5 MG/3 ML VIAL.NEB. NEB PRN (03:53)
[2021-04-08] MEDS ORDERED: SODIUM CHLORIDE NASAL SPRAY 44 ML BOTTLE NS PRN (03:53)
[2021-04-08] MEDS ORDERED: CYCLOBENZAPRINE HCL 10 MG TABLET (FP) PO PRN (04:04)
[2021-04-08] MEDS ORDERED: MAGNESIUM SULFATE IN WATER 2 GM/50 ML IVPB IVPB ONE ×2 (04:30→04:36)
[2021-04-08 08:28] LABS: BASO % 0.3 % (0-2.0); EOS % 0.9 % (0-4.5); HEMATOCRIT 39.2 % (35.4-49); HEMOGLOBIN 13.3 GM/dL (11.7-16.9); LYMPH % 31.9 % (8-40); MCH 29.3 pg (25.7-33.7); MEAN CELL VOLUME 86.1 fl (80-96); MEAN PLT VOLUME 8.5 fl (7.5-11.1); MONO % 7.5 % (3.8-10.2); NEUT % 59.4 % (42.8-82.8); PLATELET COUNT 278 10^3/uL (134-434); RBC 4.55 M/mm3 (4.00-5.60); RDW 12.7 % (11.9-15.9); WHITE BLOOD COUNT 7.9 K/mm3 (4.0-10.0)
[2021-04-08] MEDS ORDERED: FAMOTIDINE 20 MG TABLET ONE ×2 (08:30→21:38)
[2021-04-08] MEDS ORDERED: LOSARTAN POTASSIUM 50 MG TABLET ONE (08:30)
[2021-04-08] MEDS ORDERED: ASPIRIN 81 MG CHEWABLE TABLETS ONE (08:30)
[2021-04-08] MEDS ORDERED: ENOXAPARIN NA (PORCINE) 40 MG/0.4 ML DISP.SYRIN SQ ONE (08:31)
[2021-04-08] MEDS ORDERED: busPIRone HCL 5 MG TABLET ONE ×2 (08:31→21:38)
[2021-04-08] MEDS ORDERED: LORATADINE 10 MG TABLET ONE ×2 (08:31→09:39)
[2021-04-08 08:42] LABS: CALCIUM 8.6 mg/dL (8.5-10.1)
[2021-04-08 08:43] LABS: BLOOD UREA NITROGEN 10.7 mg/dL (7-18)
[2021-04-08 08:46] LABS: CREATININE 0.9 mg/dL (0.55-1.3)
[2021-04-08] MEDS: ASPIRIN 81 MG CHEWABLE TABLETS PO SCH (09:35)
[2021-04-08] MEDS: LOSARTAN POTASSIUM 50 MG TABLET PO SCH (09:36)
[2021-04-08] MEDS: FAMOTIDINE 20 MG TABLET PO SCH ×2 (09:36→22:18)
[2021-04-08] MEDS: ENOXAPARIN NA (PORCINE) 40 MG/0.4 ML DISP.SYRIN SQ SCH (09:36)
[2021-04-08] MEDS: DICLOFENAC SODIUM 25 MG TABLET.DR PO SCH ×2 (09:36→22:34)
[2021-04-08] MEDS: LORATADINE 10 MG TABLET PO SCH (09:36)
[2021-04-08] MEDS: busPIRone HCL 5 MG TABLET PO SCH ×2 (09:36→22:18)
[2021-04-08] MEDS: BUDESONIDE/FORMETEROL FUMARATE 80/4.5 mcg INHALER IH SCH ×2 (10:00→22:19)
[2021-04-08] MEDS ORDERED: ACETAMINOPHEN 325 MG TABLET (FP) ONE (15:45)
[2021-04-08] MEDS: ACETAMINOPHEN 325 MG TABLET (FP) PO PRN (16:00)
[2021-04-08] MEDS: methylPREDNISolone NA SUCC 40 MG/1 ML VIAL IVPUSH SCH ×2 (16:01→18:45)
[2021-04-08] MEDS ORDERED: ACETAMINOPHEN INJECTION 100 ML IVPB ONE (20:13)
[2021-04-08] MEDS ORDERED: MONTELUKAST NA 10 MG TABLET ONE (21:38)
[2021-04-08] MEDS ORDERED: ATORVASTATIN CA 40 MG TABLET (FP) ONE (21:38)
[2021-04-08] MEDS ORDERED: ATORVASTATIN CA 40 MG TABLET (FP) PO SCH (22:00)
[2021-04-08] MEDS ORDERED: MONTELUKAST NA 10 MG TABLET PO SCH (22:00)
[2021-04-08] MEDS: LIDOCAINE PATCH REMOVAL MC SCH (22:18)
[2021-04-09] MEDS ORDERED: methylPREDNISolone NA SUCC 40 MG/1 ML VIAL ONE ×2 (01:19→12:11)
[2021-04-09] MEDS: methylPREDNISolone NA SUCC 40 MG/1 ML VIAL IVPUSH SCH ×2 (01:50→12:00)
[2021-04-09 06:07] VITALS: TEMP 98.9
[2021-04-09] MEDS ORDERED: REGADENOSON 0.4 MG/5 ML PRE-FILLED SYRINGE IVPUSH ONE ×2 (10:33→12:00)
[2021-04-09] MEDS: ASPIRIN 81 MG CHEWABLE TABLETS PO SCH (12:00)
[2021-04-09] MEDS: LOSARTAN POTASSIUM 50 MG TABLET PO SCH (12:00)
[2021-04-09] MEDS: BUDESONIDE/FORMETEROL FUMARATE 80/4.5 mcg INHALER IH SCH (12:00)
[2021-04-09] MEDS: DICLOFENAC SODIUM 25 MG TABLET.DR PO SCH (12:00)
[2021-04-09] MEDS: busPIRone HCL 5 MG TABLET PO SCH (12:00)
[2021-04-09] MEDS: LORATADINE 10 MG TABLET PO SCH (12:00)
[2021-04-09] MEDS: FAMOTIDINE 20 MG TABLET PO SCH (12:00)
[2021-04-09] MEDS: ENOXAPARIN NA (PORCINE) 40 MG/0.4 ML DISP.SYRIN SQ SCH (12:00)
[2021-04-09] MEDS ORDERED: ASPIRIN 81 MG CHEWABLE TABLETS ONE (12:09)
[2021-04-09] MEDS ORDERED: ENOXAPARIN NA (PORCINE) 40 MG/0.4 ML DISP.SYRIN SQ ONE (12:10)
[2021-04-09] MEDS ORDERED: LOSARTAN POTASSIUM 50 MG TABLET ONE (12:10)
[2021-04-09] MEDS ORDERED: FAMOTIDINE 20 MG TABLET ONE (12:10)
[2021-04-09] MEDS ORDERED: LORATADINE 10 MG TABLET ONE ×2 (12:10→13:00)
[2021-04-09] MEDS ORDERED: busPIRone HCL 5 MG TABLET ONE (12:10)
[2021-04-09 13:30] VITALS: BP 146/92; PULSE 92
[2021-04-09] MEDS ORDERED: predniSONE 20 MG TABLET (UD) PO SCH (22:00)
== END 2021-04-09 18:00 | disposition home or self-care (01) | DRG 140 ==
LOC: JER 18:36 → JERBED 21:11
PROVIDERS: ATTEND Family Medicine
DX: J44.1 Chronic obstructive pulmonary disease with (acute) exacerbation (principal); J45.901 Unspecified asthma with (acute) exacerbation; K21.9 Gastro-esophageal reflux disease without esophagitis; I11.0 Hypertensive heart disease with heart failure; I50.32 Chronic diastolic (congestive) heart failure; Z86.16 Personal history of COVID-19; E78.5 Hyperlipidemia, unspecified; R07.89 Other chest pain; M79.10 Myalgia, unspecified site
CPT/HCPCS: 36415; 36600; 71046-TC-FY; 78452-TC; 80048; 80053; 81003; 82550; 82553; 82803; 83735; 83880; 84443; 84484; 85025; 85379; 85610; 85651; 85730; 86140; 87040; 87086; 87804; 93005; 93010; 93017; 93306-TC; 99285-25; A9502; C9803; J0131; J2785; U0003; U0005

== ENCOUNTER 2022-02-19 13:50 | Emergency (ER) | payer OTHER ==
[2022-02-19 14:08] VITALS: TEMP 97.9; BMI 25.6
[2022-02-19] MEDS ORDERED: ACETAMINOPHEN 1000 MG/100 ML BAG IVPB ONE (14:58)
[2022-02-19] MEDS ORDERED: MAG HYDROX/AL HYDROX/SIMETH 30 ML UNIT-DOSE CUP PO ONE (14:58)
[2022-02-19] MEDS ORDERED: FAMOTIDINE 20 MG/50 ML IVPB 20 MG/50 ML MG IVPB ONE ×2 (14:58→15:07)
[2022-02-19] MEDS ORDERED: ACETAMINOPHEN INJECTION 100 ML IVPB ONE (15:07)
[2022-02-19] MEDS ORDERED: MAG HYDROX/AL HYDROX/SIMETH 30 ML UNIT-DOSE CUP ONE (15:07)
[2022-02-19] MEDS ORDERED: diazePAM CARPU-JECT 10 MG/2 ML DISP.SYRIN IVPUSH ONE (15:39)
[2022-02-19 16:04] LABS: BASO % 0.5 % (0-2.0); EOS % 0.8 % (0-4.5); HEMATOCRIT 41.2 % (35.4-49); HEMOGLOBIN 13.6 GM/dL (11.7-16.9); LYMPH % 21.6 % (8-40); MCH 28.4 pg (25.7-33.7); MCHC 32.9 g/dl (32.0-35.9); MEAN CELL VOLUME 86.2 fl (80-96); MEAN PLT VOLUME 7.9 fl (7.5-11.1); NEUT % 71.1 % (42.8-82.8); PLATELET COUNT 311 10^3/uL (134-434); RBC 4.78 M/mm3 (4.00-5.60); RDW 12.4 % (11.9-15.9); WHITE BLOOD COUNT 12.1 K/mm3 (4.0-10.0)
[2022-02-19 16:37] LABS: ALBUMIN 3.9 g/dl (3.4-5.0); CALCIUM 9.6 mg/dL (8.5-10.1)
[2022-02-19 16:38] LABS: BLOOD UREA NITROGEN 18.7 mg/dL (7-18)
[2022-02-19 16:41] LABS: CREATININE 1.3 mg/dL (0.55-1.3)
[2022-02-19 16:42] LABS: BILIRUBIN,TOTAL 0.4 mg/dL (0.2-1); TOT PROT 6.9 g/dl (6.4-8.2)
[2022-02-19 16:48] LABS: LACTIC ACID 2.5 mmol/L (0.4-2.0)
[2022-02-19] MEDS ORDERED: LACTATED RINGERS SOLUTION 1000 ML INFUS.BAG IV ONE (17:04)
[2022-02-19] MEDS ORDERED: diazePAM CARPU-JECT 10 MG/2 ML DISP.SYRIN ONE (17:13)
[2022-02-19 17:35] VITALS: BP 148/87; PULSE 81
[2022-02-19 18:11] VITALS: RESP 18
== END 2022-02-19 19:34 | disposition home or self-care (01) ==
LOC: JER 13:50
PROC: 3E033GC Introduction of Other Therapeutic Substance into Peripheral Vein, Percutaneous Approach (ICD-10-PCS; principal; 2022-02-19)
DX: R07.89 Other chest pain (principal); I49.3 Ventricular premature depolarization
CPT/HCPCS: 36415; 71045-TC-FY; 80053; 83605; 84484; 85025; 93005; 93010; 99285-25; C9803-CS; U0003; U0005

== ENCOUNTER 2022-05-09 19:49 | Observation (INO) | payer OTHER ==
[2022-05-09 20:13] VITALS: BMI 27.3
[2022-05-09] MEDS ORDERED: ALBUTEROL SO4 2.5/IPRATROPIUM 0.5 INH SOL 3 ML VIAL.NEB. NEB ONE ×3 (20:35→21:10)
[2022-05-09] MEDS ORDERED: ASPIRIN 81 MG CHEWABLE TABLETS PO ONE (20:56)
[2022-05-09 21:09] LABS: EPI CELLS 3 /uL (0-25.1); HYALINE CASTS 0 /uL (0-3.1); PH,URINE 5.5 (5.0-8.0); URINE APPEARANCE CLEAR; URINE BACTERIA 3 /uL (0-1359); URINE BILIRUBIN NEGATIVE (NEGATIVE); URINE COLOR YELLOW; URINE GLUCOSE (UA) NEGATIVE (NEGATIVE); URINE KETONE NEGATIVE (NEGATIVE); URINE LEUK ESTERASE TRACE (NEGATIVE); URINE NITRITE NEGATIVE (NEGATIVE); URINE PROTEIN NEGATIVE (NEGATIVE); URINE RBC 7 /uL (0-23.9); URINE UROBILINOGEN 0.2 mg/dL (0.2-1.0); URINE WBC 11 /uL (0-25.8)
[2022-05-09] MEDS ORDERED: ASPIRIN 81 MG CHEWABLE TABLETS ONE (21:10)
[2022-05-09 21:20] LABS: HEMATOCRIT 41.7 % (35.4-49); HEMOGLOBIN 13.4 GM/dL (11.7-16.9); MCH 27.5 pg (25.7-33.7); MCHC 32.1 g/dl (32.0-35.9); MEAN CELL VOLUME 85.5 fl (80-96); MEAN PLT VOLUME 8.1 fl (7.5-11.1); PLATELET COUNT 257 10^3/uL (134-434); RBC 4.87 M/mm3 (4.00-5.60); RDW 12.8 % (11.9-15.9); WHITE BLOOD COUNT 9.5 K/mm3 (4.0-10.0)
[2022-05-09 21:44] LABS: ALBUMIN 3.7 g/dl (3.4-5.0); CALCIUM 9.2 mg/dL (8.5-10.1)
[2022-05-09 21:47] LABS: CREATININE 1.4 mg/dL (0.55-1.3)
[2022-05-09 21:48] LABS: BILIRUBIN,TOTAL 0.7 mg/dL (0.2-1)
[2022-05-09 21:48] LABS: VENOUS BASE EXCESS 0.4 mmol/L (-2-2); VENOUS PH 7.42 (7.310-7.410)
[2022-05-09 21:49] LABS: TOT PROT 6.9 g/dl (6.4-8.2)
[2022-05-09] MEDS ORDERED: ONDANSETRON 4 MG/2 ML VIAL IVPUSH ONE (21:56)
[2022-05-09] MEDS ORDERED: SODIUM CHLORIDE 1,000 ML IV STA (22:00)
[2022-05-09] MEDS ORDERED: methylPREDNISolone NA SUCC 125 MG/2 ML VIAL IVPUSH ONE (22:06)
[2022-05-09] MEDS ORDERED: REMDESIVIR 200 MG in SODIUM CHLORIDE 250 ML IVPB ONE (22:07)
[2022-05-09] MEDS ORDERED: methylPREDNISolone NA SUCC 125 MG/2 ML VIAL ONE (22:27)
[2022-05-09] MEDS ORDERED: ONDANSETRON 4 MG/2 ML VIAL ONE (22:27)
[2022-05-09] MEDS ORDERED: levETIRAcetam 500 MG/5 ML INJECTION VIAL IVPB ONE (22:57)
[2022-05-10] MEDS ORDERED: REMDESIVIR 200 MG in SODIUM CHLORIDE 250 ML IVPB ONE
[2022-05-10] MEDS ORDERED: ACETAMINOPHEN 325 MG TABLET (FP) ONE (00:46)
[2022-05-10] MEDS ORDERED: MAG HYDROX/AL HYDROX/SIMETH 30 ML UNIT-DOSE CUP PO PRN (01:11)
[2022-05-10] MEDS ORDERED: ALBUTEROL SO4 HFA INHALER IH PRN (01:39)
[2022-05-10] MEDS ORDERED: LOSARTAN POTASSIUM 50 MG TABLET ONE (08:04)
[2022-05-10] MEDS ORDERED: methylPREDNISolone NA SUCC 125 MG/2 ML VIAL ONE (08:04)
[2022-05-10] MEDS ORDERED: levETIRAcetam 500 MG TABLET (FP) PO ONE (08:04)
[2022-05-10] MEDS ORDERED: ASPIRIN 81 MG CHEWABLE TABLETS ONE (08:04)
[2022-05-10] MEDS: methylPREDNISolone NA SUCC 40 MG/1 ML VIAL IVPUSH SCH ×3 (08:09→20:06)
[2022-05-10] MEDS: INSULIN SLIDING SCALE (NOVOLOG) 1 VIAL SQ SCH ×3 (08:43→17:14)
[2022-05-10 08:55] LABS: BASO % 0.1 % (0-2.0); HEMATOCRIT 39.3 % (35.4-49); HEMOGLOBIN 12.6 GM/dL (11.7-16.9); LYMPH % 17.5 % (8-40); MCH 27.4 pg (25.7-33.7); MCHC 32.2 g/dl (32.0-35.9); MEAN CELL VOLUME 85.2 fl (80-96); MEAN PLT VOLUME 8.5 fl (7.5-11.1); MONO % 3.3 % (3.8-10.2); NEUT % 79.1 % (42.8-82.8); PLATELET COUNT 259 10^3/uL (134-434); RBC 4.61 M/mm3 (4.00-5.60); RDW 12.6 % (11.9-15.9); WHITE BLOOD COUNT 5.5 K/mm3 (4.0-10.0)
[2022-05-10 09:03] LABS: INR 1.07 (0.83-1.09); PROTHROMBIN TIME (PATIENT) 12.3 SEC (9.7-13.0)
[2022-05-10 09:32] LABS: BLOOD UREA NITROGEN 14.7 mg/dL (7-18); CALCIUM 8.7 mg/dL (8.5-10.1)
[2022-05-10 09:35] LABS: CREATININE 1.3 mg/dL (0.55-1.3)
[2022-05-10] MEDS ORDERED: REMDESIVIR 100 MG in SODIUM CHLORIDE 250 ML IVPB SCH (10:00)
[2022-05-10] MEDS: LOSARTAN POTASSIUM 50 MG TABLET PO SCH (10:20)
[2022-05-10] MEDS: levETIRAcetam XR 500 MG TAB PO SCH (10:20)
[2022-05-10] MEDS: LORATADINE 10 MG TABLET PO SCH (10:20)
[2022-05-10] MEDS: ASPIRIN 81 MG CHEWABLE TABLETS PO SCH (10:20)
[2022-05-10] MEDS ORDERED: ACETAMINOPHEN INJECTION 100 ML IVPB ONE ×3 (11:01→20:07)
[2022-05-10] MEDS ORDERED: MAG HYDROX/AL HYDROX/SIMETH 30 ML UNIT-DOSE CUP ONE (11:02)
[2022-05-10] MEDS ORDERED: guaiFENesin/D-METHORPHAN HB 10 ML UNIT-DOSE CUPS ONE (11:02)
[2022-05-10] MEDS: ACETAMINOPHEN 1000 MG/100 ML BAG IVPB PRN ×2 (11:11→20:06)
[2022-05-10] MEDS: guaiFENesin/CODEINE 5 ML UNIT-DOSE CUPS PO PRN ×2 (11:11→20:06)
[2022-05-10] MEDS ORDERED: guaiFENesin/CODEINE 10 ML UNIT-DOSE CUPS ONE (20:07)
[2022-05-10] MEDS ORDERED: methylPREDNISolone NA SUCC 40 MG/1 ML VIAL ONE (20:07)
[2022-05-10] MEDS ORDERED: ATORVASTATIN CA 40 MG TABLET (FP) PO SCH (22:00)
[2022-05-10] MEDS ORDERED: ACETAMINOPHEN 325 MG TABLET (FP) PO PRN (22:33)
[2022-05-11] MEDS: levETIRAcetam XR 500 MG TAB PO SCH ×2 (00:23→09:22)
[2022-05-11 01:16] VITALS: TEMP 97.4
[2022-05-11] MEDS: INSULIN SLIDING SCALE (NOVOLOG) 1 VIAL SQ SCH ×2 (01:56→07:13)
[2022-05-11] MEDS: methylPREDNISolone NA SUCC 40 MG/1 ML VIAL IVPUSH SCH ×2 (01:56→09:22)
[2022-05-11] MEDS ORDERED: methylPREDNISolone NA SUCC 40 MG/1 ML VIAL ONE ×2 (01:58→08:57)
[2022-05-11] MEDS ORDERED: ATORVASTATIN CA 40 MG TABLET (FP) ONE (01:58)
[2022-05-11] MEDS ORDERED: LOSARTAN POTASSIUM 50 MG TABLET ONE (08:56)
[2022-05-11] MEDS ORDERED: levETIRAcetam 500 MG TABLET (FP) PO ONE (08:56)
[2022-05-11] MEDS ORDERED: ENOXAPARIN NA (PORCINE) 40 MG/0.4 ML DISP.SYRIN SQ ONE (08:57)
[2022-05-11] MEDS ORDERED: LORATADINE 10 MG TABLET ONE (08:57)
[2022-05-11] MEDS ORDERED: ASPIRIN 81 MG CHEWABLE TABLETS ONE (08:57)
[2022-05-11] MEDS: LOSARTAN POTASSIUM 50 MG TABLET PO SCH (09:22)
[2022-05-11] MEDS: LORATADINE 10 MG TABLET PO SCH (09:22)
[2022-05-11] MEDS: ASPIRIN 81 MG CHEWABLE TABLETS PO SCH (09:22)
[2022-05-11] MEDS ORDERED: ENOXAPARIN NA (PORCINE) 40 MG/0.4 ML DISP.SYRIN SQ SCH (10:00)
[2022-05-11 10:09] VITALS: BP 142/85; PULSE 79; RESP 15
== END 2022-05-11 10:09 | disposition left against medical advice (07) ==
LOC: JER 19:49 → JERBED 22:14
PROVIDERS: ADMIT Internal Medicine; ATTEND Internal Medicine
PROC: 3E033NZ Introduction of Analgesics, Hypnotics, Sedatives into Peripheral Vein, Percutaneous Approach (ICD-10-PCS; principal; 2022-05-09)
PROC: 3E0F7GC Introduction of Other Therapeutic Substance into Respiratory Tract, Via Natural or Artificial Opening (ICD-10-PCS; 2022-05-09)
PROC: 3E023GC Introduction of Other Therapeutic Substance into Muscle, Percutaneous Approach (ICD-10-PCS; 2022-05-09)
PROC: 3E033GC Introduction of Other Therapeutic Substance into Peripheral Vein, Percutaneous Approach (ICD-10-PCS; 2022-05-09)
DX: U07.1 COVID-19 (principal); E78.5 Hyperlipidemia, unspecified; J45.41 Moderate persistent asthma with (acute) exacerbation; R56.9 Unspecified convulsions; I11.0 Hypertensive heart disease with heart failure; I50.30 Unspecified diastolic (congestive) heart failure; K21.9 Gastro-esophageal reflux disease without esophagitis; K25.9 Gastric ulcer, unspecified as acute or chronic, without hemorrhage or perforation; R09.3 Abnormal sputum; R11.2 Nausea with vomiting, unspecified; K92.0 Hematemesis; Z87.891 Personal history of nicotine dependence; K92.2 Gastrointestinal hemorrhage, unspecified
CPT/HCPCS: 0241U-QW; 36415; 71045-TC-FY; 80048; 80053; 80177; 81003; 82803; 82962; 83735; 84100; 84484; 85025; 85027; 85610; 85730; 86850; 86900; 86901; 87086; 93005; 93010; 94640; 96366; 96367; 96372; 96374; 96375; 96376; 99285-25; C9399; G0378

== ENCOUNTER → 2024-05-25 | Day surgery (SDC) | payer MEDICARE, OTHER ==
[2024-05-24 11:36] VITALS: BMI 24.4
[~2024-05-25] MED LIST: ACETAMINOPHEN INJECTION 100 ML ONE; BUPIVACAINE HCL/PF 0.5% (5MG/ML) 10 ML VIAL ONE; DEXAMETHASONE SOD PHOSPHATE 4 MG/1 ML VIAL ONE; GLYCOPYRROLATE 0.2 MG/1 ML VIAL ONE; KETAMINE HCL 200 MG/20 ML VIAL ONE; LACTATED RINGERS SOLUTION 1,000 ML IV SCH; LIDOCAINE HCL 1%, 10 MG/ML (20ML VIAL) ONE; LIDOCAINE HCL/PF 2% SDV 5ML VIAL ONE; MIDAZOLAM HCL 2 MG/2 ML SINGLE DOSE VIAL ONE; PROPOFOL 20 ML ONE; ceFAZolin SODIUM 1 GM VIAL ONE; oxyCODONE HCL 5 MG TABLET PO PRN
[2024-05-25] MEDS: ceFAZolin 2 GRAM PREMIX BAG IVPB ONE (13:30)
[2024-05-25] MEDS: BUPIVACAINE HCL/PF 0.5% (5MG/ML) 10 ML VIAL IJ ONE ×2 (13:37)
[2024-05-25] MEDS: LIDOCAINE HCL 1%, 10 MG/ML (20ML VIAL) INF ONE ×2 (13:37)
[2024-05-25 17:11] VITALS: BP 143/79; PULSE 83; RESP 18; TEMP 97.8
== END | disposition home or self-care (01) ==
LOC: JASU-SURG 04:13
PROVIDERS: ATTEND Surgery
PROC: 0JB80ZZ Excision of Abdomen Subcutaneous Tissue and Fascia, Open Approach (ICD-10-PCS; principal; 2024-05-25 13:00)
DX: L02.231 Carbuncle of abdominal wall (principal)
CPT/HCPCS: 88305-TC; 94760; J0131